=== PATIENT | male | born 1930 | race Two or more races ===

== ENCOUNTER 2016-11-09 19:43 | Inpatient (IN) | payer MEDICARE, MEDICAID ==
[~2016-11-09] VITALS: Ht 182.9 cm; Wt 93.0 kg
--- NOTE | 2016-11-09 19:50 | NUR ---
To bed 6 a 86 yo male bibra with c/o oxygen desaturation on room air at 84-87%, diminished lung sounds upon ausculation. Placed on simple mask at 5lpm, satting now at 98%. Patient is lethargic, responsive to pain, nonverbal. afebrile at this time. project/production manager imaging ongoing. gowned. kept hob elevated. awaiting for er md garland.
--- NOTE | 2016-11-09 19:55 | NUR ---
started a saline lock on the left hand g20, blood drawn and sent to lab.
[2016-11-09] MEDS ORDERED: LORA1TAB82 PO (20:10)
[2016-11-09] MEDS ORDERED: RISP0.253 PO (20:10)
[2016-11-09] MEDS ORDERED: MEMA10TA PO (20:10)
[2016-11-09] MEDS ORDERED: METO25TA6 PO (20:10)
[2016-11-09] MEDS ORDERED: CRAN425C PO (20:10)
[2016-11-09] MEDS ORDERED: MAGN400O6 PO (20:10)
[2016-11-09] MEDS ORDERED: ATOR10TA PO (20:10)
[2016-11-09] MEDS ORDERED: FURO-144 PO (20:10)
[2016-11-09] MEDS ORDERED: ACET650T10 PO (20:10)
[2016-11-09] MEDS ORDERED: POTA10CA43 PO (20:10)
--- NOTE | 2016-11-09 20:10 | NUR ---
Dr Espinosa at bedside for eval.
[2016-11-09 20:16] LABS: BASOPHILS # (AUTO) 0.5 /CMM (0.0-0.2); EOSINOPHILS # (AUTO) 0.1 /CMM (0.0-0.7); EOSINOPHILS % (AUTO) 1.2 % (0.0-6.0); HEMATOCRIT 40 % (39-51); HEMOGLOBIN 13.1 g/dL (13.5-17.5); LYMPHOCYTES # (AUTO) 0.7 /CMM (0.8-4.8); LYMPHOCYTES % (AUTO) 6.2 % (20.0-44.0); MEAN CORPUSCULAR HEMOGLOBIN 30 PG (26.0-33.0); MEAN CORPUSCULAR HGB CONC 33 g/dl (31.0-36.0); MEAN CORPUSCULAR VOLUME 91 fL (80-96); MONOCYTES # (AUTO) 0.6 /CMM (0.1-1.30); MONOCYTES % (AUTO) 5.5 % (2.0-12.0); NEUTROPHILS # (AUTO) 9.6 /CMM (1.8-8.9); NEUTROPHILS % (AUTO) 83.1 % (43.0-81.0); PLATELET COUNT (AUTO) 199 /CMM (150-450); RDW COEFFICIENT OF VARIATION 14.1 (11.5-15.0); WHITE BLOOD COUNT (AUTO) 11.5 K/uL (4.3-11.0)
[2016-11-09 20:27] LABS: CALCIUM, SERUM 8.1 mg/dL (8.5-10.1); CARBON DIOXIDE 29 mmol/L (21-32); CHLORIDE 105 mmol/L (98-107); CREATININE 1.3 mg/dL (0.6-1.3); GLUCOSE 138 mg/dL (74-106); POTASSIUM 4.3 mmol/L (3.5-5.1); SODIUM SERUM 140 mmol/L (136-145); UREA NITROGEN, BLOOD 25 mg/dL (7-18)
[2016-11-09 20:32] LABS: ALANINE AMINOTRANSFERASE 17 U/L (12-78); ALBUMIN 3.5 g/dL (3.4-5.0); ALKALINE PHOSPHATASE 111 U/L (46-116); ASPARTATE AMINOTRANSFERASE 25 U/L (15-37); BILIRUBIN,DIRECT 0.1 mg/dL (0.0-0.2); BILIRUBIN,TOTAL 0.5 mg/dL (0.2-1.0); TOTAL PROTEIN, SERUM 7.7 g/dL (6.4-8.2)
[2016-11-09 20:34] LABS: PROTHROMBIN TIME 10.4 SECS (9.5-12.7); TROPONIN I < 0.017 ng/mL (0.00-0.056)
[2016-11-09 20:51] LABS: ABG BASE EXCESS 0.7 mmol/L; ABG OXYGEN SATURATION 98.6 % (92.0-98.5); ABG PCO2 40.7 mmHg (35.0-45.0); ABG PH 7.412 (7.350-7.450); ABG PO2 151.6 mmHg (75.0-100.0); AaDO2 195.3 mmHg; COHb 0.5 % (0.5-1.5); MetHb 0.5 % (0.0-1.5); O2Hb 97.6 % (94.0-97.0); SITE, ABG Right Radial; VENT MODE, BG simple mask 9L
[2016-11-09] MEDS ORDERED: LIDOCAINE 2% JEL UROJET 10 ML MM ONE (21:03)
--- NOTE | 2016-11-09 21:10 | NUR ---
LIDOCAINE UROJECT ADMINISTERED VERBALLY ORDERED BY DR EDGE PRIOR TO BAXTER INSERTION, STRAIGHT CATH PERFORMED ASEPTICALLY, DRAINED ABOUT 150CC OF CLEAR YELLOW URINE. URINE COLLECTED AND SENT TO LAB.
--- NOTE | 2016-11-09 21:16 | NUR ---
DR NATHAN ON THE PHONE WITH Neftaly BARBOUR
[2016-11-09 21:27] LABS: APPEARANCE,URINE Clear (CLEAR); BILIRUBIN,URINE SMALL (NEGATIVE); BLOOD, URINE Negative Ery/uL (NEGATIVE); COLOR,URINE Yellow (YELLOW); KETONES,URINE Negative (NEGATIVE); LEUKOCYTE ESTERASE ,URINE Negative (NEGATIVE); NITRITE, URINE Negative (NEGATIVE); PROTEIN,URINE 100 mg/dl (NEGATIVE); UGLUCOSE Negative (NEGATIVE)
[2016-11-09] MEDS ORDERED: CEFEPIME 1 GM in IV D5W 50 ML IV ONE (21:30)
[2016-11-09] MEDS ORDERED: VANCOMYCIN 1 GM in IV D5W 250 ML IV ONE (21:30)
[2016-11-09] MEDS ORDERED: CEFEPIME 1 GM VIAL ONE (21:44)
[2016-11-09] MEDS ORDERED: IV SET PRIMARY PUMP SET 1 EA INFUS.SET MC ONE (21:44)
[2016-11-09] MEDS ORDERED: IV D5W 50 ML IV ONE (21:45)
--- NOTE | 2016-11-09 21:46 | NUR ---
Report given to Carina Gutierrez for admission.
[2016-11-09 21:57] VITALS: BP 152/75
[2016-11-09 22:00] VITALS: BP 152/75
--- NOTE | 2016-11-09 22:00 | NUR ---
Transported to floor via als protocol, no incident noted. Endorsed to VINICIUS Lim for rupinder.
--- NOTE | 2016-11-09 22:00 | NUR ---
LORRAINE RN INITIAL NOTE RECEIVED REPORT FROM FLORENCIO BOYD RN. PT ARRIVED VIA GURNEY FROM ER. PT IS A/A/O X1. PT IS CONFUSED, PULLING AT IV, RESISTING CARE BY PUSHING HIMSELF BACK WHEN ASSESSING HIS SKIN. SKIN INTACT, BLE SCRATCHES NOTED UPON ADMISSION, THEY ARE SCABBED AND DRY. INCONTINENT TO BOTH URINE AND STOOL. RESTRAINTS APPLIED FOR PTS SAFETY. LUNG SOUNDS CRACKLES. BOWEL SOUNDS PRESENT. IV LEFT HAND 20G INTACT. PULSES PRESENT. BED IN LOW LOCKED POSITION. CALL LIGHT WITHIN REACH. WILL CONTINUE TO MONITOR.
[2016-11-09 22:01] LABS: BACTERIA,URINE Few /HPF (None Seen); RBC,URINE 0-2 /HPF (0-2); SQUAMOUS EPITHELIAL CELL,UR Rare /HPF (None Seen); URINE AMORPHOUS URATE Few /HPF (None Seen)
--- NOTE | 2016-11-09 22:30 | NUR ---
LORRAINE RN DR PAGE CONTACTED FOR ADMISSION ORDERS. ORDERS INPUT. WILL CONTINUE TO MONITOR.
[2016-11-09] MEDS ORDERED: SECONDARY IV SET 1 EA INFUS.SET MC ONE (22:55)
[2016-11-09] MEDS ORDERED: IV NS 0.9% 250 ML IV ONE (22:57)
[2016-11-09] MEDS ORDERED: VANCOMYCIN 1 GM VIAL ONE (22:57)
[2016-11-09] MEDS: IV D5/ 0.9% NACL 1,000 ML IV PRN (23:00)
[2016-11-09] MEDS ORDERED: VANCOMYCIN 1 GM in IV D5W 250 ML IV SCH ×2 (23:00→23:30)
[2016-11-10] VITALS: BP 133/61
[2016-11-10] MEDS ORDERED: LEVOFLOXACIN 500 MG /D5W 100ML 100 ML IV ONE (00:15)
[2016-11-10] MEDS ORDERED: SECONDARY IV SET 1 EA INFUS.SET MC ONE (00:40)
[2016-11-10] MEDS ORDERED: LEVOFLOXACIN 500 MG /D5W 100ML 500 MG in PREMIX 1 EA IV SCH (01:00)
[2016-11-10 04:00] VITALS: BP 158/77
[2016-11-10 06:36] LABS: BASOPHILS % (AUTO) 0.2 % (0.0-2.0); EOSINOPHILS # (AUTO) 0.1 /CMM (0.0-0.7); EOSINOPHILS % (AUTO) 0.5 % (0.0-6.0); HEMATOCRIT 38 % (39-51); HEMOGLOBIN 12.3 g/dL (13.5-17.5); LYMPHOCYTES # (AUTO) 1.1 /CMM (0.8-4.8); LYMPHOCYTES % (AUTO) 9.7 % (20.0-44.0); MEAN CORPUSCULAR HEMOGLOBIN 30 PG (26.0-33.0); MEAN CORPUSCULAR HGB CONC 33 g/dl (31.0-36.0); MEAN CORPUSCULAR VOLUME 91 fL (80-96); MONOCYTES # (AUTO) 0.5 /CMM (0.1-1.30); MONOCYTES % (AUTO) 4.8 % (2.0-12.0); NEUTROPHILS # (AUTO) 9.2 /CMM (1.8-8.9); NEUTROPHILS % (AUTO) 84.8 % (43.0-81.0); PLATELET COUNT (AUTO) 199 /CMM (150-450); RDW COEFFICIENT OF VARIATION 14.6 (11.5-15.0); RED BLOOD CELL COUNT(AUTO) 4.14 MIL/uL (4.5-6.0); WHITE BLOOD COUNT (AUTO) 10.8 K/uL (4.3-11.0)
[2016-11-10 07:13] LABS: CREATININE 1.2 mg/dL (0.6-1.3); POTASSIUM 4.4 mmol/L (3.5-5.1)
[2016-11-10] MEDS ORDERED: VANCOMYCIN 1 GM in IV D5W 250 ML IV SCH (07:40)
[2016-11-10] MEDS ORDERED: FEE PK DOSING 1 MIN EA MC ONE (07:42)
[2016-11-10 08:00] VITALS: BP 154/78
[2016-11-10] MEDS ORDERED: MAGNESIUM HYDROXIDE 30 ML UDC PO PRN (09:30)
[2016-11-10] MEDS ORDERED: LORAZEPAM 1 MG TABLET PO PRN (09:30)
[2016-11-10] MEDS ORDERED: FUROSEMIDE 40 MG TABLET PO SCH (09:30)
[2016-11-10] MEDS ORDERED: Medication Not On Formulary EA (Cranberry Extract (Cranberry) 425 MG) PO SCH (09:30)
[2016-11-10] MEDS: VANCOMYCIN 1 GM in IV D5W 250 ML IV SCH ×2 (10:09→22:41)
[2016-11-10] MEDS: METOPROLOL TARTRATE 25 MG TABLET PO SCH ×2 (10:09→17:05)
[2016-11-10] MEDS: MEMANTINE HCL 5 MG TABLET PO SCH (10:10)
[2016-11-10] MEDS: POTASSIUM CHLORIDE 10 MEQ TABLET.SA PO SCH (10:10)
[2016-11-10] MEDS: risperiDONE 0.25 MG TABLET PO SCH (10:14)
[2016-11-10 10:47] LABS: THYROID STIMULATING HORMONE 1.022 uIU/mL (0.358-3.74)
[2016-11-10 11:03] LABS: TROPONIN I 0.029 ng/mL (0.00-0.056)
[2016-11-10] MEDS ORDERED: Z GUARD REMEDY 2 OZ OINT TP PRN (11:30)
[2016-11-10 11:36] LABS: MAGNESIUM 1.9 mg/dL (1.8-2.4)
[2016-11-10 12:00] VITALS: BP 148/85
--- NOTE | 2016-11-10 12:50 | NUR ---
LORRAINE RN NOTE 0720: Received patient awake, alert to name, non verbal at this time. Responds to pain. No respiratory distress noted. On 2LPM of O2 via NC tolerated. Kept HOB elevated. No S/S any discomfort at this time. With LH PIV, IVF infusing as ordered. With CHILDREN'S AUTHOR restraints for episode of pulling out IV. NSR 1st degree 70's. Noted with bilateral legs scratches. 0830: S/E by ST, with recommendation of video swallow, mentioned may continue diet because no coughing noted during eating. 0930: S/E PT but unable to follow commands, unable to cooperate, PT will follow up again tomorrow. 0945: S/E by Dr. Sullivan, with additional labs ordered, with order to may transfer to Tele, made CN aware. Awaiting for polysom tech. 1230: No any significant changes noted at this time. Will continue to monitor. VSS, continue ATB therapy as ordered. Applied DVT pumps for prophylaxis.
[2016-11-10 16:00] VITALS: BP 158/79
[2016-11-10] MEDS: IV D5/ 0.9% NACL 1,000 ML IV PRN (16:32)
--- NOTE | 2016-11-10 16:53 | NUR ---
PROCEDURE MANAGER NOTE Informed Dr. Baires re: ' rec for video swallow, said he will review the chart of the patient.
[2016-11-10] MEDS ORDERED: ATORVASTATIN 10 MG TABLET PO SCH (18:00)
--- NOTE | 2016-11-10 19:35 | NUR ---
TELERN ASLEEP, NEW IV SITE LEFT WRIST 20 GAUGE INSERTED BY OUTGOING RN. PRESENT IVF INFUSING WELL AT 75CC/HR. SR ON THE MONITOR, NO RESP DISTRESS, 02 MAINTAINED AT 2L SATURATING 97%. CLOSELY WATCHED.
[2016-11-10 20:00] VITALS: BP 157/87
--- NOTE | 2016-11-10 21:17 | NUR ---
TELERN REMAINS SR ON THE MONITOR, ASLEEP, EASILY AWAKENED. BILATERAL SOFT WRIST RESTRAINTS IN PLACE TO PREVENT PATIENT FROM PULLING LINES. CLOSELY WATCHED.
--- NOTE | 2016-11-10 22:48 | NUR ---
BRINEYARD SUPERVISOR DUE RICHARDO INFUSING WELL VIA LEFT WRIST. OPENS EYES OCCASIONALLY.
[2016-11-11] VITALS (9 sets, daily range): BP systolic 147–185; BP diastolic 82–108
[2016-11-11] MEDS: ACETAMINOPHEN 325 MG TABLET PO PRN ×2 (00:28→10:40)
[2016-11-11] MEDS: LEVOFLOXACIN 500 MG /D5W 100ML 500 MG in PREMIX 1 EA IV SCH (00:28)
--- NOTE | 2016-11-11 03:40 | NUR ---
TELERN BLADDER SCAN 116 CC. NO OUTPUDT AT THIS TIME
--- NOTE | 2016-11-11 05:59 | NUR ---
TELERN VOIDED ONCE THIS SHIFT MODERATE AMOUNT.
[2016-11-11 06:30] LABS: BASOPHILS % (AUTO) 0.3 % (0.0-2.0); EOSINOPHILS % (AUTO) 0.1 % (0.0-6.0); HEMATOCRIT 38 % (39-51); HEMOGLOBIN 12.7 g/dL (13.5-17.5); LYMPHOCYTES # (AUTO) 0.9 /CMM (0.8-4.8); LYMPHOCYTES % (AUTO) 8.6 % (20.0-44.0); MEAN CORPUSCULAR HEMOGLOBIN 30 PG (26.0-33.0); MEAN CORPUSCULAR HGB CONC 34 g/dl (31.0-36.0); MEAN CORPUSCULAR VOLUME 90 fL (80-96); MONOCYTES # (AUTO) 0.8 /CMM (0.1-1.30); MONOCYTES % (AUTO) 7.7 % (2.0-12.0); NEUTROPHILS # (AUTO) 8.7 /CMM (1.8-8.9); NEUTROPHILS % (AUTO) 83.3 % (43.0-81.0); PLATELET COUNT (AUTO) 185 /CMM (150-450); RDW COEFFICIENT OF VARIATION 14.4 (11.5-15.0); RED BLOOD CELL COUNT(AUTO) 4.24 MIL/uL (4.5-6.0); WHITE BLOOD COUNT (AUTO) 10.5 K/uL (4.3-11.0)
[2016-11-11 07:04] LABS: BILIRUBIN,TOTAL 0.6 mg/dL (0.2-1.0); CREATININE 1.1 mg/dL (0.6-1.3); MAGNESIUM 1.9 mg/dL (1.8-2.4); PHOSPHORUS 2.4 mg/dL (2.5-4.9); TOTAL PROTEIN, SERUM 7.5 g/dL (6.4-8.2)
[2016-11-11 07:15] LABS: TROPONIN I 0.045 ng/mL (0.00-0.056)
[2016-11-11] MEDS: MEMANTINE HCL 5 MG TABLET PO SCH (08:30)
[2016-11-11] MEDS: POTASSIUM CHLORIDE 10 MEQ TABLET.SA PO SCH (08:30)
[2016-11-11] MEDS: risperiDONE 0.25 MG TABLET PO SCH (08:31)
[2016-11-11] MEDS: NITROGLYCERIN 30 GM TUBE TP SCH ×2 (09:14→19:53)
[2016-11-11] MEDS: VANCOMYCIN 1 GM in IV D5W 250 ML IV SCH ×2 (10:40→23:22)
--- NOTE | 2016-11-11 10:57 | NUR ---
DR. MANZO AWARE OF VS 171/101, HR 122, O2 SAT 93% WITH 2L NC, TEMP 101.3 AND TROPONIN TREND. MD INPUT NEW ORDERS THIS MORNING. MEDICATION BEING ADMINISTERED, MD SAID CONTINUE TO MONITOR IS FOR NOW. TYLENOL AND ATIVAN ADMINISTERED FOR FEVER AND ANXIETY MANIFESTED BY VS CHANGES.
[2016-11-11] MEDS: METOPROLOL TARTRATE 25 MG TABLET PO SCH ×3 (12:10→23:23)
[2016-11-11] MEDS: LACTOBACILLUS RHAMNOSUS GG 1 EACH CAP.SPRINK PO SCH (17:20)
--- NOTE | 2016-11-11 18:11 | NUR ---
BP CHECKED AFTER METOPROLOL ADMIN- , NOTIFIED DR MANZO WITH 1 NEW ORDER FOR CLONIDINE TTS3 NOW AND LEAVE ON FOR 7 DAYS.
[2016-11-11] MEDS ORDERED: CLONIDINE HCL 0.3 MG/24H PTWK 1 EA PATCH TD SCH (18:30)
[2016-11-11] MEDS ORDERED: NEUTRA PHOS 1 POWD.PACKET PO ONE (18:30)
[2016-11-11] MEDS ORDERED: SECONDARY IV SET 1 EA INFUS.SET MC ONE (18:45)
[2016-11-11] MEDS ORDERED: Sodium Phosphate 15 MMOL in IV D5W 250 ML IV ONE (19:00)
--- NOTE | 2016-11-11 19:35 | NUR ---
RN INITIAL NOTE RECEIVED PT IN NO ACUTE DISTRESS IN BED. PT IS CONFUSED. PT OPENS EYES WITH LIGHT/HEAVY PAIN. PT IS ON O2 VIA NC @ 2LPM AND TOLERATING WELL WITH O2 SAT @ 98%. PT IS ON TELE WITH SR ON THE MONITOR. PT NOT C/O ANY SOB, DIFFICULTY BREATHING OR PAIN AT THIS TIME. L WRIST 20G THAT IS CLEAN DRY INTACT AND PATENT. BED IN LOW LOCK POSITION WITH RIALS UP X 2. CALL LIGHT WITHIN REACH AND ALL SAFETY MEASURES ENSURED AND CARRIED OUT. WILL CONTINUE TO MONITOR PT FOR ANY CHANGES IN CONDITION.
--- NOTE | 2016-11-11 20:00 | NUR ---
RN NOTE BP ELEVATED @ 185/102 PT HAS CLONAPINE PATCH PLACED @ 1830 AND NITRO PATCH PLACED PER ORDERS. WILL RECHECK BLOOD PRESSURE FOR EFFECT OF TREATMENT.
[2016-11-12] VITALS: BP 174/98
[2016-11-12] MEDS: LEVOFLOXACIN 500 MG /D5W 100ML 500 MG in PREMIX 1 EA IV SCH (01:19)
[2016-11-12 04:00] VITALS: BP 175/96
[2016-11-12] MEDS: METOPROLOL TARTRATE 25 MG TABLET PO SCH ×2 (05:27→12:30)
--- NOTE | 2016-11-12 06:53 | NUR ---
RN CLOSING NOTE PT REMAINS IN NO ACUTE DISTRESS IN BED. PT DID NOT HAVE ANY SIGNIFICANT CHANGE IN CONDITION. ALL NEEDS MET ALL ORDERS CARRIED OUT. ALL SAFETY MEASURES ENSURED AND CARRIED OUT. WILL ENDORSE TO AM RN FOR CONTINUITY OF CARE.
--- NOTE | 2016-11-12 07:00 | NUR ---
RN INITIAL NOTE RECEIVED PT IN NO ACUTE DISTRESS IN BED. PT IS CONFUSED. PT OPENS EYES WITH LIGHT/HEAVY PAIN. PT IS ON O2 VIA NC @ 2LPM AND TOLERATING WELL WITH O2 SAT @ 98%. PT IS ON TELE WITH SR ON THE MONITOR. PT NO C/O ANY SOB, DIFFICULTY BREATHING OR PAIN AT THIS TIME. L WRIST 20G THAT IS CLEAN DRY INTACT AND PATENT. BED IN LOW LOCK POSITION WITH RIALS UP X 2. CALL LIGHT WITHIN REACH AND ALL SAFETY MEASURES ENSURED AND CARRIED OUT. WILL CONTINUE TO MONITOR PT FOR ANY CHANGES IN CONDITION.
[2016-11-12 07:40] LABS: PHOSPHORUS 2.7 mg/dL (2.5-4.9)
[2016-11-12 08:00] VITALS: BP 159/82
[2016-11-12] MEDS ORDERED: NIFEdipine XL 60 MG TAB PO SCH (09:00)
[2016-11-12] MEDS: MEMANTINE HCL 5 MG TABLET PO SCH (09:31)
[2016-11-12] MEDS: LACTOBACILLUS RHAMNOSUS GG 1 EACH CAP.SPRINK PO SCH (09:31)
[2016-11-12] MEDS: POTASSIUM CHLORIDE 10 MEQ TABLET.SA PO SCH (09:31)
[2016-11-12] MEDS: risperiDONE 0.25 MG TABLET PO SCH (09:31)
[2016-11-12] MEDS: NITROGLYCERIN 30 GM TUBE TP SCH (09:35)
[2016-11-12 12:00] VITALS: BP 160/93
[2016-11-12 12:20] LABS: ABG BASE EXCESS 0.8 mmol/L; ABG OXYGEN SATURATION 94.9 % (92.0-98.5); ABG PCO2 33.6 mmHg (35.0-45.0); ABG PH 7.471 (7.350-7.450); AaDO2 150.9 mmHg; COHb 1.4 % (0.5-1.5); MetHb 0.6 % (0.0-1.5); SITE, ABG Right Brachial; VENT MODE, BG NASAL CANNULA
[2016-11-12] MEDS: VANCOMYCIN 1 GM in IV D5W 250 ML IV SCH (12:32)
--- NOTE | 2016-11-12 13:30 | NUR ---
AT 1000 PT SEEN BY .REPORTED TO PT IS NOT ABLE TO STAY AWAKE AND IS SLEEPING SINCE MORNING. ORDERED CT SCAN OF HEAD AND ABG. AT [address] SCAN DONE.RECEIVED REPORT FROM RADIOLOGIST PT HAS LEFT TEMPORAL BLEEDING OF 7CM WITH MIDLINE SHIFT.Rapid response team was called and patient was transferred to [facility]
--- NOTE | 2016-11-12 13:40 | NUR ---
REWARDS CONSULTANT NOTES RECEIVED PATIENT S/P CLAY PREPARATION SUPERVISOR FROM LORRAINE ,NOT IN ACUTE DISTRESS , RESPIRATIONS EVEN AND UNLABORED WITH SPO2 OF 100% BAGGING BY RT , ST 105 WITH 1ST DEGREE AV BLOCK ON BEDSIDE MONITOR , FC CATHETER PLACED NOTED WITH CLEAR YELLOW URINE TOLERATED WELL WITH NO BLEEDING , IV OF L WRIST # 20 PATENT AND INTACT , IV OF R FA # 20 INSERTED PER PROTOCOL PATENT AND INTACT , DISCUSSED LABS ABG AND HEAD CT RESULT WITH JENELLE BREEN PT SUSSEFFULY INTUBATED UNDER DR DELA CRUZ , MEDICATIONS GIVEN ORDERED WITH LUNG SOUNDS ON BILATERAL LUNGS , STAT CHEST XRAY ORDERED , WILL CONTINUE TO MONITOR
[2016-11-12 13:58] VITALS: BP 160/93
[2016-11-12] MEDS ORDERED: DEXAMETHASONE SOD PHOSPHATE 10 MG/ML VIAL IV ONE (14:00)
[2016-11-12] MEDS ORDERED: IV MANNITOL 20% 500 ML in PREMIX 1 EA IV PRN (14:00)
[2016-11-12] MEDS ORDERED: SOD FERRIC GLUC 125 MG in IV NS 0.9% 100 ML IV SCH (14:00)
--- NOTE | 2016-11-12 14:10 | NUR ---
MIDDLE SCHOOL FOOTBALL COACH NOTES REPORT GIVEN TO SHRUTHI FROM [facility] FOR CONTINUITY OF CARE , ALL QUESTIONS ANSWERED , DISCUSSED LABS , ABG AND LATEST V/S , @ 1413 REPORT GIVEN TO EMS FOR PT TRANSFER , DISCUSSED HX , LABS , MEDICATIONS , @ 1457 DR JOSE DE JESUS BREEN AT BEDSIDE , MED RECON WAS DONE , MANITOL IV AND FERRECIT IV WAS NOT GIVEN PT IS READY FOR TRANSFER MD AWARE ,
[2016-11-12 14:26] VITALS: BP 160/93
[2016-11-12 14:30] LABS: BASOPHILS % (AUTO) 0.1 % (0.0-2.0); HEMATOCRIT 41 % (39-51); HEMOGLOBIN 13.2 g/dL (13.5-17.5); LYMPHOCYTES # (AUTO) 0.9 /CMM (0.8-4.8); LYMPHOCYTES % (AUTO) 7.3 % (20.0-44.0); MEAN CORPUSCULAR HEMOGLOBIN 29 PG (26.0-33.0); MEAN CORPUSCULAR HGB CONC 33 g/dl (31.0-36.0); MEAN CORPUSCULAR VOLUME 91 fL (80-96); MONOCYTES # (AUTO) 1.1 /CMM (0.1-1.30); MONOCYTES % (AUTO) 8.9 % (2.0-12.0); NEUTROPHILS # (AUTO) 10.4 /CMM (1.8-8.9); NEUTROPHILS % (AUTO) 83.7 % (43.0-81.0); PLATELET COUNT (AUTO) 202 /CMM (150-450); RDW COEFFICIENT OF VARIATION 14.6 (11.5-15.0); RED BLOOD CELL COUNT(AUTO) 4.48 MIL/uL (4.5-6.0); WHITE BLOOD COUNT (AUTO) 12.4 K/uL (4.3-11.0)
--- NOTE | 2016-11-12 14:30 | NUR ---
CLAM SHUCKER NOTES DISCHARGE INSTRUCTIONS . LABS AND MEDICATION RECON PROVIDED TO EMS , NO WOUND NOTED ,
[2016-11-12] MEDS ORDERED: IV SET PRIMARY PUMP SET 1 EA INFUS.SET MC ONE (14:42)
[2016-11-12] MEDS: IV D5/ 0.9% NACL 1,000 ML IV PRN (14:47)
[2016-11-12] MEDS ORDERED: LEVETIRACETAM (500MG) 1,000 MG in IV NS 0.9% 100 ML IV SCH (15:00)
[2016-11-12] MEDS ORDERED: ETOMIDATE 2 MG/ML VIAL IV ONE (15:03)
[2016-11-12] MEDS ORDERED: ROCURONIUM BROMIDE 50 MG/5 ML IV ONE (15:03)
== END 2016-11-12 16:10 | disposition short-term general hospital (02) | DRG 208 ==
LOC: ER 19:44 → TELE-TD 22:12 → TELE1 11-10 15:49 → ICU 11-12 13:35
PROVIDERS: ADMIT Internal Medicine; ATTEND Internal Medicine
PROC: 5A1935Z Respiratory Ventilation, Less than 24 Consecutive Hours (ICD-10-PCS; principal; 2016-11-12)
PROC: 0BH17EZ Insertion of Endotracheal Airway into Trachea, Via Natural or Artificial Opening (ICD-10-PCS; 2016-11-12)
DX: J15.9 Unspecified bacterial pneumonia (principal); I61.9 Nontraumatic intracerebral hemorrhage, unspecified; G93.40 Encephalopathy, unspecified; F20.0 Paranoid schizophrenia; I42.9 Cardiomyopathy, unspecified; J96.11 Chronic respiratory failure with hypoxia; J98.11 Atelectasis; D50.9 Iron deficiency anemia, unspecified; E11.9 Type 2 diabetes mellitus without complications; E78.5 Hyperlipidemia, unspecified; F02.80 Dementia in other diseases classified elsewhere, unspecified severity, without behavioral disturbance, psychotic disturbance, mood disturbance, and anxiety; G30.9 Alzheimer's disease, unspecified; I10 Essential (primary) hypertension; Z79.899 Other long term (current) drug therapy; Z88.0 Allergy status to penicillin; G47.00 Insomnia, unspecified; F41.9 Anxiety disorder, unspecified
CPT/HCPCS: 36415; 36600; 70450-TC; 71010-TC; 80048-TC; 80053-TC; 80061-TC; 80076-TC; 80202-TC; 81000-TC; 82306; 82728-TC; 82962-TC; 83540-TC; 83605-TC; 83735-TC; 84100-TC; 84439-TC; 84443-TC; 84484-TC; 85025-TC; 85730-TC; 87040-TC; 87081-TC; 87086-TC; 92611-TC; 93307-TC; 94799-TC; A4216; A4606; A9563; J0692; J1100; J1953; J1956; J2150; J2916; J3370; J3490; J7030; J7042; J7050; J7060; Z7610

== ENCOUNTER 2017-07-24 23:59 | Emergency (ER) | payer MEDICARE, MEDICAID ==
[~2017-07-24] VITALS: Ht 170.2 cm; Wt 90.7 kg
[~2017-07-24 23:59] MED LIST: ACET650T10 PO; ATOR10TA PO; CRAN425C6 PO; FURO-144 PO; LORA-259 PO; MAGN400O6 PO; MEMA10TA GT; METO25TA6 PO; POTA10CA43 PO; RISP0.253 PO
--- NOTE | 2017-07-25 00:27 | NUR ---
TO BED 3 BIB PARAMEDICS C/O ABNORMAL LABS HGB-6.0, HCT-22.2. PT CHRONIC TRACHE, VENT DEPENDENT. RT AT BEDSIDE TO PLACE PT ON VENT. PLACE PT ON CARDIAC MONITORING, CONTINUOUS POX. PENDING ER MD TURCIOS.
--- NOTE | 2017-07-25 00:30 | NUR ---
RT PLACE PT ON VENT AC-16, TV-700, FIO2-40%. WILL CONTINUE TO MONITOR PT.
--- NOTE | 2017-07-25 00:36 | NUR ---
STARTED SL 18G TO L HAND.
[2017-07-25 00:40] VITALS: BP 162/79
--- NOTE | 2017-07-25 00:50 | NUR ---
RT NOTE: TRACH PT ON VENT WAS BROUGHT IN BY EMT ON AC 16, 700, 40%. TRACH SIZE PORTEX 8. TRACH WELL SECURED AND PATENT. DOG FOOD DOUGH MIXER DONE. SX SMALL AMOUNT OF THIN PALE YELLOW SECRETIONS. VENT ALARMS AUDIBLE AND WELL FUNCTIONING. VENT PLUGGED INTO RED OUTLET WITH AMBU BAG AT [facility]. WILL CONT TO MONITOR PATIENT. Addendum: 07/25/17 at 0051 by CLARE SORENSEN RT Amended: Links added.
--- NOTE | 2017-07-25 01:16 | NUR ---
PT ASLEEP, NO ACUTE DISTRESS NOTED, RESP EVEN AND UNLABORED. CALL LIGHT WITHIN REACH. WILL CONTINUE TO MONITOR PT CLOSELY.
[2017-07-25 01:44] LABS: BASOPHILS % (AUTO) 0.1 % (0.0-2.0); EOSINOPHILS # (AUTO) 1.4 /CMM (0.0-0.7); EOSINOPHILS % (AUTO) 11.5 % (0.0-6.0); HEMATOCRIT 25 % (39-51); HEMOGLOBIN 8.2 g/dL (13.5-17.5); LYMPHOCYTES % (AUTO) 15.9 % (20.0-44.0); MEAN CORPUSCULAR HEMOGLOBIN 30 PG (26.0-33.0); MEAN CORPUSCULAR HGB CONC 33 g/dl (31.0-36.0); MEAN CORPUSCULAR VOLUME 90 fL (80-96); MONOCYTES # (AUTO) 0.6 /CMM (0.1-1.30); NEUTROPHILS # (AUTO) 8.4 /CMM (1.8-8.9); NEUTROPHILS % (AUTO) 67.5 % (43.0-81.0); PLATELET COUNT (AUTO) 473 /CMM (150-450); RED BLOOD CELL COUNT(AUTO) 2.76 MIL/uL (4.5-6.0); WHITE BLOOD COUNT (AUTO) 12.5 K/uL (4.3-11.0)
[2017-07-25 01:56] LABS: CARBON DIOXIDE 29 mmol/L (21-32); CHLORIDE 97 mmol/L (98-107); CREATININE 0.9 mg/dL (0.6-1.3); GLUCOSE 89 mg/dL (74-106); SODIUM SERUM 133 mmol/L (136-145); UREA NITROGEN, BLOOD 26 mg/dL (7-18)
[2017-07-25 02:02] LABS: ALANINE AMINOTRANSFERASE 157 U/L (12-78); ALBUMIN 1.9 g/dL (3.4-5.0); ALKALINE PHOSPHATASE 106 U/L (46-116); ASPARTATE AMINOTRANSFERASE 134 U/L (15-37); BILIRUBIN,DIRECT 0.1 mg/dL (0.0-0.2); BILIRUBIN,TOTAL 0.2 mg/dL (0.2-1.0); TOTAL PROTEIN, SERUM 7.5 g/dL (6.4-8.2)
[2017-07-25] MEDS ORDERED: MINE3.5O OP (02:02)
[2017-07-25] MEDS ORDERED: BISA10SU61 RC (02:02)
[2017-07-25] MEDS ORDERED: MULT-213 GT (02:02)
[2017-07-25] MEDS ORDERED: IPRA3AMP IH ×2 (02:02)
[2017-07-25] MEDS ORDERED: AMIN30LI2 GT (02:02)
[2017-07-25] MEDS ORDERED: SACC250C GT (02:02)
[2017-07-25] MEDS ORDERED: DEXT15DR6 EACHEYE (02:02)
[2017-07-25] MEDS ORDERED: LEVE500T9 GT (02:02)
[2017-07-25] MEDS ORDERED: PANT40TA2 PO (02:02)
[2017-07-25] MEDS ORDERED: NA P133E RC (02:02)
[2017-07-25] MEDS ORDERED: ASCO500T9 GT (02:02)
[2017-07-25] MEDS ORDERED: AMIO200T2 GT (02:02)
[2017-07-25] MEDS ORDERED: CLON0.1T GT (02:02)
[2017-07-25] MEDS ORDERED: ACET-73 GT (02:02)
--- NOTE | 2017-07-25 02:04 | NUR ---
REPORT CALLED TO TELE 1 VINICIUS SUH. WILL TRANSPORT PT VIA ACLS PROTOCOL.
[2017-07-25 02:07] LABS: INR 1.44 (0.87-1.13)
[2017-07-25 03:30] VITALS: BP 155/90
--- NOTE | 2017-07-25 03:56 | NUR ---
PT ASLEEP, NO ACUTE DISTRESS NOTED, RESP EVEN AND UNLABORED. CALL LIGHT WITHIN REACH. WILL CONTINUE TO MONITOR PT CLOSELY.
--- NOTE | 2017-07-25 05:32 | NUR ---
RT AT BEDSIDE FOR SUCTIONING.
[2017-07-25 06:08] VITALS: BP 133/81
[2017-07-25 07:07] VITALS: BP 135/86
--- NOTE | 2017-07-25 07:10 | NUR ---
RT AT BEDSIDE
--- NOTE | 2017-07-25 08:02 | NUR ---
Patient is resting comfortably in bed with eyes closed. Easily aroused. VSS
--- NOTE | 2017-07-25 09:30 | NUR ---
IV removed. Catheter intact and site benign. Pressure and 4x4 applied to site. No bleeding noted.Patient discharged to home in stable condition. Written and verbal after care instructions given. Patient verbalizes understanding of instruction.
[2017-07-25 09:31] VITALS: BP 148/86
== END 2017-07-25 09:32 | disposition home or self-care (01) ==
LOC: ER 07-25
DX: J96.90 Respiratory failure, unspecified, unspecified whether with hypoxia or hypercapnia (principal); D64.9 Anemia, unspecified; E11.9 Type 2 diabetes mellitus without complications; F02.80 Dementia in other diseases classified elsewhere, unspecified severity, without behavioral disturbance, psychotic disturbance, mood disturbance, and anxiety; L89.609 Pressure ulcer of unspecified heel, unspecified stage; F20.0 Paranoid schizophrenia; G30.9 Alzheimer's disease, unspecified; I10 Essential (primary) hypertension; Z88.0 Allergy status to penicillin; Z91.011 Allergy to milk products
CPT/HCPCS: 36415; 80048; 80076; 85025; 85730; 86850; 86921; 99284; A4606; Z7610

== ENCOUNTER 2017-08-07 13:07 | Inpatient (IN) | payer MEDICARE, MEDICAID ==
[~2017-08-07] VITALS: Ht 180.3 cm; Wt 107.0 kg
[~2017-08-07 13:07] MED LIST changes: +ACET-73 GT; +AMIN30LI2 GT; +AMIO200T2 GT; +ASCO500T9 GT; +BISA10SU61 RC; +CLON0.1T GT; +CRAN425C6 GT; -CRAN425C6 PO; +DEXT15DR6 EACHEYE; -FURO-144 PO; +IPRA3AMP IH; +LEVE500T9 GT; -LORA-259 PO; +MAGN400O6 GT; -MAGN400O6 PO; +METO25TA6 GT; -METO25TA6 PO; +MINE3.5O OP; +MULT-213 GT; +NA P133E RC; +PANT40TA2 GT; -POTA10CA43 PO; -RISP0.253 PO; +SACC250C GT
--- NOTE | 2017-08-07 13:10 | NUR ---
HUNTER PA FROM SNF FOR WOUND EVALUATION TO BILATERAL HIPS. FOUL ODOR. RR IS EVEN AND UNLABORED WITH NAD NOTED. CAME IN WITH VENT. SKIN IS WARM AND DRY. DR MONTESINOS AT BS FOR EVAL.
[2017-08-07 13:24] VITALS: BP 124/95
--- NOTE | 2017-08-07 13:26 | NUR ---
RT PATIENT REC'D VIA TRANSPORT, TRACHED ON [facility] VENT WITH NOTED TRACH LEAK. PLACED ON HOSPITAL VENT WITH SAME SETTINGS TRANSPORT PER MD. VENT ALARMS CHECKED + AUDIBLE. CUFF PRESSURE CHECKED PAPER MACHINE BACK TENDER. SX'D WITH SMALL AMT OF QUINN SEMITHICK SECRETIONS. PATIENT NON VERBAL, NON RESPONSIVE, NO DISTRESS NOTED ON VENT. AMBU BAG AT [facility]. Addendum: 08/07/17 at 1329 by AIME GROVES RT Amended: Links added.
[2017-08-07 13:40] LABS: BASOPHILS % (AUTO) 0.3 % (0.0-2.0); EOSINOPHILS # (AUTO) 1.1 /CMM (0.0-0.7); EOSINOPHILS % (AUTO) 7.7 % (0.0-6.0); HEMATOCRIT 26 % (39-51); HEMOGLOBIN 8.6 g/dL (13.5-17.5); LYMPHOCYTES # (AUTO) 3.2 /CMM (0.8-4.8); LYMPHOCYTES % (AUTO) 21.8 % (20.0-44.0); MEAN CORPUSCULAR HEMOGLOBIN 30 PG (26.0-33.0); MEAN CORPUSCULAR HGB CONC 33 g/dl (31.0-36.0); MEAN CORPUSCULAR VOLUME 90 fL (80-96); MONOCYTES # (AUTO) 0.6 /CMM (0.1-1.30); MONOCYTES % (AUTO) 4.1 % (2.0-12.0); NEUTROPHILS # (AUTO) 9.7 /CMM (1.8-8.9); NEUTROPHILS % (AUTO) 66.1 % (43.0-81.0); PLATELET COUNT (AUTO) 458 /CMM (150-450); RDW COEFFICIENT OF VARIATION 19.9 (11.5-15.0); WHITE BLOOD COUNT (AUTO) 14.6 K/uL (4.3-11.0)
[2017-08-07 13:55] LABS: INR 1.06 (0.85-1.15)
[2017-08-07] MEDS ORDERED: VANCOMYCIN 1 GM in IV D5W 250 ML IV ONE (14:00)
[2017-08-07] MEDS ORDERED: LEVOFLOXACIN 750 MG /D5W 150ML 150 ML IV ONE ×2 (14:00→15:21)
[2017-08-07 14:05] LABS: ALANINE AMINOTRANSFERASE 41 U/L (12-78); ALBUMIN 1.9 g/dL (3.4-5.0); ALKALINE PHOSPHATASE 103 U/L (46-116); ASPARTATE AMINOTRANSFERASE 46 U/L (15-37); BILIRUBIN,DIRECT 0.1 mg/dL (0.0-0.2); BILIRUBIN,TOTAL 0.2 mg/dL (0.2-1.0); CARBON DIOXIDE 33 mmol/L (21-32); CHLORIDE 98 mmol/L (98-107); CREATININE 0.9 mg/dL (0.6-1.3); GLUCOSE 106 mg/dL (74-106); POTASSIUM 4.8 mmol/L (3.5-5.1); SODIUM SERUM 135 mmol/L (136-145); TOTAL PROTEIN, SERUM 7.7 g/dL (6.4-8.2); UREA NITROGEN, BLOOD 26 mg/dL (7-18)
[2017-08-07 14:07] LABS: TROPONIN I < 0.017 ng/mL (0.00-0.056)
[2017-08-07 14:39] VITALS: BP 130/92
--- NOTE | 2017-08-07 14:44 | NUR ---
[facility] CALLED FOR DR ALBARRAN.
[2017-08-07] MEDS ORDERED: FERR220S2 GT (14:58)
--- NOTE | 2017-08-07 15:50 | NUR ---
REPORT GIVEN TO VINICIUS CABRERA FOR [employer] TELE 319.
[2017-08-07 16:00] VITALS: BP 153/89
--- NOTE | 2017-08-07 16:00 | NUR ---
tele hogshead builder: admission admitted this 87 yr old male pt from e.r. with dx: infected celeste hip wounds. pt is vent dependent with settings: ac 16, tv 700, fio2 at 40% and with peep of 0. satting at 100%. pt is non-verbal, obtunded. placed pt on tele sr=70's. body check completed and placed in chart. noted tracheostomy making sounds and leaking. per e.r. report, pt need ent consult, will refer to pmd. orders carried out and noted. pt is isoflex. initial wound care done; all wounds defer to md. g-tube placement check and patent with no residual obtained. kept clean and dry. kept comfortable. call light within reach. will continue to monitor.
--- NOTE | 2017-08-07 16:09 | NUR ---
RT PATIENT TRANSFERRED TO [facility]. REPORT GIVEN TO RT Addendum: 08/07/17 at 1610 by AIME GROVES RT Amended: Links added.
--- NOTE | 2017-08-07 17:00 | NUR ---
tele web applications administrator: form maker plaster consult dr. holloway at bedside, wants to do bedside debridement and with verbal order to get consent for right heel debridement. order carried out and acknowledged. left message to venkat (public guardian) via answering machine. dr. holloway made aware and will see pt tomorrow as stated.
[2017-08-07] MEDS ORDERED: FEE PK DOSING 1 MIN EA MC ONE ×2 (17:48→18:11)
[2017-08-07] MEDS: AMIODARONE HCL 200 MG TABLET GT SCH (18:00)
[2017-08-07] MEDS ORDERED: ACETAMINOPHEN 650 MG/20.3 ML UDC GT PRN (18:00)
[2017-08-07] MEDS: ASCORBIC ACID 500 MG TABLET GT SCH (18:00)
[2017-08-07] MEDS ORDERED: MAGNESIUM HYDROXIDE 30 ML UDC GT PRN (18:00)
[2017-08-07] MEDS ORDERED: BISACODYL SUPP (10 MG) 10 MG/SUPP.RECT SUPP.RECT RC PRN (18:00)
[2017-08-07] MEDS ORDERED: ALBUTEROL FS 2.5 MG/0.5 ML VIAL.NEB NEB PRN (18:00)
[2017-08-07] MEDS ORDERED: IPRATROPIUM NEB FS 0.5 MG/2.5 ML AMPUL.NEB IH PRN (18:00)
[2017-08-07] MEDS ORDERED: Z GUARD REMEDY 2 OZ OINT TP PRN (18:00)
[2017-08-07] MEDS: POLYVINYL ALCOHOL 15 ML BOTTLE EACHEYE SCH (18:00)
[2017-08-07] MEDS ORDERED: ACETAMINOPHEN 325 MG TABLET PO PRN (18:00)
[2017-08-07] MEDS ORDERED: INSU100V3 SQ (18:12)
[2017-08-07] MEDS ORDERED: CLONIDINE HCL 0.1 MG TABLET GT PRN (18:30)
[2017-08-07] MEDS: FERROUS SULFATE UDC 300 MG/5 ML UDC GT SCH (18:38)
--- NOTE | 2017-08-07 18:38 | NUR ---
tele lemon grower: notes all due meds given via g-tube. still awaiting for formula. f/u made to pharmacy. will continue to monitor.
[2017-08-07] MEDS: METOPROLOL TARTRATE 25 MG TABLET GT SCH (18:39)
[2017-08-07] MEDS: MEMANTINE HCL 5 MG TABLET GT SCH (18:39)
--- NOTE | 2017-08-07 19:15 | NUR ---
tele outreach manager: notes report given to cain hassan) for continuity of care.
--- NOTE | 2017-08-07 19:15 | NUR ---
RN OPEN NOTES RECEIVED PATIENT RESTING IN BED. OBTUNDED. NO SIGNS OF DISTRESS OR DISCOMFORT. BREATHING EVEN AND UNLABORED. ON [facility] VENT WITH SETTING ORDERED. IV ACCESS IN R HAND, PATENT AND INTACT, NO SIGNS OF REDNESS OR INFILTRATION. HAS GTUBE INTACT. BED IN LOW LOCKED POSITION WITH SIDE RAILS X2. CALL LIGHT WITHIN REACH. WILL CONTINUE TO MONITOR.
[2017-08-07 19:42] VITALS: BP 124/95
[2017-08-07] MEDS: ALBUTEROL FS 2.5 MG/0.5 ML VIAL.NEB NEB SCH (19:42)
[2017-08-07] MEDS: IPRATROPIUM NEB FS 0.5 MG/2.5 ML AMPUL.NEB IH SCH (19:42)
[2017-08-07 20:00] VITALS: BP 148/80
[2017-08-07] MEDS: INSULIN REGULAR, HUMAN 100 UNIT/ML 3 ML VIAL SQ SCH (21:00)
--- NOTE | 2017-08-07 21:21 | NUR ---
RN NOTES LEFT MESSAGE FOR JOELLEN LUCIO PATIENT POA AT [phone]. REGARDING CONSENT FOR PROCEDURE FOR RIGHT HEEL DEBRIDEMENT.
[2017-08-07] MEDS: BLOOD SUGAR DIAGNOSTIC 1 EACH STRIP IN SCH (21:51)
[2017-08-07] MEDS: MEROPENEM 500 MG in IV NS 0.9% 50 ML IV SCH (21:51)
[2017-08-07] MEDS: LEVETIRACETAM SOL (5 ML) 100 MG/ML UDC GT SCH (21:52)
[2017-08-07] MEDS: FIBERSOURCE HN 1,000 ML BOTTLE GT PRN (21:52)
[2017-08-07] MEDS: ATORVASTATIN 10 MG TABLET GT SCH (21:52)
[2017-08-07] MEDS: LANOLIN/MIN OIL/PETROLAT,WHT 3.5 GM TUBE EACHEYE SCH (21:55)
[2017-08-07] MEDS: Z GUARD REMEDY 2 OZ OINT TP SCH (21:56)
[2017-08-07] MEDS ORDERED: NA PHOS,M-B/NA PHOS,DI-BA 1 EA ENEMA RC SCH (22:00)
[2017-08-08] VITALS: BP 128/69
[2017-08-08] MEDS ORDERED: NA PHOS,M-B/NA PHOS,DI-BA 1 EA ENEMA RC PRN
[2017-08-08] MEDS: VANCOMYCIN 1 GM in IV D5W 250 ML IV SCH ×2 (02:19→16:06)
[2017-08-08] MEDS: ALBUTEROL FS 2.5 MG/0.5 ML VIAL.NEB NEB SCH ×4 (02:28→20:25)
[2017-08-08] MEDS: IPRATROPIUM NEB FS 0.5 MG/2.5 ML AMPUL.NEB IH SCH ×4 (02:28→20:24)
[2017-08-08 04:00] VITALS: BP 127/68
[2017-08-08] MEDS: MEROPENEM 500 MG in IV NS 0.9% 50 ML IV SCH ×3 (05:09→21:37)
--- NOTE | 2017-08-08 07:05 | NUR ---
RN CLOSING NOTES PATIENT AWAKE IN BED. NON-VERBAL. NO SIGNS OF DISTRESS OR DISCOMFORT. BREATHING EVEN AND UNLABORED. [facility] WITH SETTING ORDERED. IV ACCESS IN R HAND, PATENT AND INTACT, NO SIGNS OF REDNESS OR INFILTRATION. HAS GTUBE INTACT WITH FEEDING RUNNING, PATIENT TOLERATING WELL WITH NO RESIDUAL NOTED THROUGHOUT SHIFT. PATIENT KEPT CLEAN DRY AND COMFORTABLE. ALL NEEDS MET. NO SIGNIFICANT CHANGES THROUGH THE NIGHT. BED IN LOW LOCKED POSITION WITH SIDE RAILS X2. CALL LIGHT WITHIN REACH. WILL ENDORSE TO AM SHIFT FOR JUNI.
--- NOTE | 2017-08-08 07:50 | NUR ---
RN OPENING NOTES RECEIVED PT. PT STABLE, SLEEPING IN BED. PT IS OBTUNDED, NON-VERBAL. PT DOES NOT APPEAR TO BE IN PAIN. PT IS TRACHED (PORTEX 8) AND VENT DEPENDENT, SETTINGS IN PLACE. TELE MONITOR READING SR WITH 1ST DEGREE AVB. GT PATENT AND IN PLACE, WITH 20 ML RESIDUAL. FEEDING OF FIBERSOURCE RUNNING AT 55 ML/HR. IV ACCESS LOCATED ON RIGHT HAND 20G, SL. PER MD NOTE, PT POA TO BE CONTACTED IN ORDER TO RECEIVE CONSENT FOR RIGHT HEEL DEBRIDEMENT. SAFETY MEASURES IN PLACE, CALL LIGHT WITHIN REACH. WILL CONTINUE TO MONITOR.
[2017-08-08 08:00] VITALS: BP 117/65
[2017-08-08] MEDS: POLYVINYL ALCOHOL 15 ML BOTTLE EACHEYE SCH ×2 (08:46→17:43)
[2017-08-08] MEDS: ASCORBIC ACID 500 MG TABLET GT SCH (08:46)
[2017-08-08] MEDS: MEMANTINE HCL 5 MG TABLET GT SCH ×2 (08:46→17:42)
[2017-08-08] MEDS: FERROUS SULFATE UDC 300 MG/5 ML UDC GT SCH ×3 (08:46→17:42)
[2017-08-08] MEDS: LEVETIRACETAM SOL (5 ML) 100 MG/ML UDC GT SCH ×2 (08:46→21:38)
[2017-08-08] MEDS: PANTOPRAZOLE 40 MG/PACK PACK NG SCH (08:47)
[2017-08-08] MEDS: AMIODARONE HCL 200 MG TABLET GT SCH (08:47)
[2017-08-08] MEDS: MULTIVIT, IRON, MIN NO. 8, FA 1 TAB GT SCH (08:47)
[2017-08-08] MEDS: PROSOURCE / PROSTAT (PYXIS) 30 ML UDC GT SCH (08:49)
[2017-08-08] MEDS: BLOOD SUGAR DIAGNOSTIC 1 EACH STRIP IN SCH ×2 (08:49→21:38)
[2017-08-08] MEDS: METOPROLOL TARTRATE 25 MG TABLET GT SCH ×2 (08:50→17:42)
[2017-08-08] MEDS: INSULIN REGULAR, HUMAN 100 UNIT/ML 3 ML VIAL SQ SCH ×2 (09:00→21:00)
[2017-08-08] MEDS: Z GUARD REMEDY 2 OZ OINT TP SCH ×2 (09:47→21:40)
[2017-08-08 12:00] VITALS: BP 121/63
--- NOTE | 2017-08-08 14:07 | NUR ---
RN NOTES SCHEDULED VANCO DELAYED UNTIL VANCO TROUGH IS DRAWN. LAB NOTIFIED, TO BE DRAWN WITHIN THE HOUR. WILL F/U.
[2017-08-08 15:11] LABS: BASOPHILS % (AUTO) 0.3 % (0.0-2.0); EOSINOPHILS # (AUTO) 0.6 /CMM (0.0-0.7); EOSINOPHILS % (AUTO) 4.4 % (0.0-6.0); HEMATOCRIT 24 % (39-51); HEMOGLOBIN 7.9 g/dL (13.5-17.5); LYMPHOCYTES # (AUTO) 2.8 /CMM (0.8-4.8); LYMPHOCYTES % (AUTO) 22.5 % (20.0-44.0); MEAN CORPUSCULAR HEMOGLOBIN 30 PG (26.0-33.0); MEAN CORPUSCULAR HGB CONC 33 g/dl (31.0-36.0); MEAN CORPUSCULAR VOLUME 92 fL (80-96); MONOCYTES # (AUTO) 0.8 /CMM (0.1-1.30); MONOCYTES % (AUTO) 6.2 % (2.0-12.0); NEUTROPHILS # (AUTO) 8.4 /CMM (1.8-8.9); NEUTROPHILS % (AUTO) 66.6 % (43.0-81.0); PLATELET COUNT (AUTO) 377 /CMM (150-450); RDW COEFFICIENT OF VARIATION 20.9 (11.5-15.0); RED BLOOD CELL COUNT(AUTO) 2.61 MIL/uL (4.5-6.0); WHITE BLOOD COUNT (AUTO) 12.6 K/uL (4.3-11.0)
[2017-08-08 15:49] LABS: ABG BASE EXCESS 6.9 mmol/L; ABG OXYGEN SATURATION 95.1 % (92.0-98.5); ABG PCO2 39.4 mmHg (35.0-45.0); ABG PH 7.507 (7.350-7.450); ABG PO2 73.1 mmHg (75.0-100.0); AaDO2 166.8 mmHg; COHb 0.9 % (0.5-1.5); MetHb 0.6 % (0.0-1.5); O2Hb 93.7 % (94.0-97.0); PEEP,BG 0 cm H2O; SITE, ABG Right Brachial; VT, ABG 700 mL
[2017-08-08 15:50] LABS: CARBON DIOXIDE 29 mmol/L (21-32); CHLORIDE 96 mmol/L (98-107); CREATININE 0.9 mg/dL (0.6-1.3); GLUCOSE 102 mg/dL (74-106); PHOSPHORUS 2.7 mg/dL (2.5-4.9); POTASSIUM 3.9 mmol/L (3.5-5.1); SODIUM SERUM 133 mmol/L (136-145); UREA NITROGEN, BLOOD 24 mg/dL (7-18)
[2017-08-08 16:00] VITALS: BP 130/79
--- NOTE | 2017-08-08 18:53 | NUR ---
RN CLOSING NOTES PT IN BED RESTING. NO S/S OF RESP DISTRESS. VENT SETTINGS IN PLACE. TV ADJUSTED TO 550 PER RT ORDER. PT REQUIRES CONSENT FOR RIGHT FOOT DEBRIDEMENT AND US GUIDED THORACENTESIS. PUBLIC GUARDIAN JOELLEN VALDES CONTACTED FOR CONSENTS, MESSAGES LEFT. DR. WESTFALL CONTACTED FOR REVISION OF TRACHEOSTOMY, AWAITING MESSAGE. ALL PT NEEDS ANTICIPATED AND MET, SAFETY MEASURES IN PLACE. CALL LIGHT WITHIN REACH. WILL ENDORSE TO VISITING PROFESSOR FOR JUNI.
--- NOTE | 2017-08-08 19:25 | NUR ---
RN OPEN NOTES RECEIVED PATIENT RESTING IN BED. NON-VERVBAL. NO SIGNS OF DISTRESS OR DISCOMFORT. BREATHING EVEN AND UNLABORED. [facility] WITH SETTING ORDERED. IV ACCESS IN R HAND, PATENT AND INTACT, NO SIGNS OF REDNESS OR INFILTRATION. HAS GTUBE INTACT WITH FEEDING RUNNING, PATIENT TOLERATING WELL. PATIENT STILL NEEDS CONSENT FOR US GUIDED THORACENTESIS AND R HEEL DEBRIDEMENT, WILL F/U WITH APRIL VALDES. BED IN LOW LOCKED POSITION WITH SIDE RAILS X2. CALL LIGHT WITHIN REACH. WILL CONTINUE TO MONITOR.
--- NOTE | 2017-08-08 19:58 | NUR ---
Patient is trach/vent dependent,he resides at [facility] sub-acute unit [phone].Patient is bedfast, totally dependent with adl's. Current plan is to discharge patient back to sub-acute facility once discharge. Addendum: 08/08/17 at 1958 by RICHAR TAVAREZ RN Amended: Links added.
[2017-08-08 20:00] VITALS: BP 128/67
[2017-08-08] MEDS: FIBERSOURCE HN 1,000 ML BOTTLE GT PRN (21:37)
[2017-08-08] MEDS: ATORVASTATIN 10 MG TABLET GT SCH (21:38)
[2017-08-08] MEDS: LANOLIN/MIN OIL/PETROLAT,WHT 3.5 GM TUBE EACHEYE SCH (21:38)
[2017-08-09] VITALS: BP 121/75
--- NOTE | 2017-08-09 00:35 | NUR ---
RN NOTES NOTIFIED ON-CALL MD THAT PATIENT HEART RHYTHM IS NOW IN AFIB. NO NEW ORDERS GIVEN. WILL CONTINUE TO MONITOR.
[2017-08-09] MEDS: IPRATROPIUM NEB FS 0.5 MG/2.5 ML AMPUL.NEB IH SCH ×4 (01:45→22:47)
[2017-08-09] MEDS: ALBUTEROL FS 2.5 MG/0.5 ML VIAL.NEB NEB SCH ×4 (01:45→22:47)
[2017-08-09] MEDS: VANCOMYCIN 1 GM in IV D5W 250 ML IV SCH ×2 (02:47→13:55)
[2017-08-09 04:00] VITALS: BP 120/69
[2017-08-09] MEDS: MEROPENEM 500 MG in IV NS 0.9% 50 ML IV SCH ×3 (05:30→21:56)
--- NOTE | 2017-08-09 06:23 | NUR ---
RN CLOSING NOTES PATIENT RESTING IN BED, AROUSABLE TO TOUCH. NON-VERVBAL. NO SIGNS OF DISTRESS OR DISCOMFORT. BREATHING EVEN AND UNLABORED. [facility] ORDERED. IV ACCESS IN R HAND, PATENT AND INTACT, NO SIGNS OF REDNESS OR INFILTRATION. HAS GTUBE INTACT WITH FEEDING RUNNING, PATIENT TOLERATING WELL, NO RESIDUAL NOTED. PATIENT STILL NEEDS CONSENT FOR US GUIDED THORACENTESIS AND R HEEL DEBRIDEMENT, L/M FOR APRIL VALDES AT [phone]. ALL NEEDS MET. NO SIGNIFICANT CHANGES THROUGH THE NIGHT. PATIENT KEPT CLEAN DRY AND COMFORTABLE. REPOSITIONED Q2H. BED IN LOW LOCKED POSITION WITH SIDE RAILS X2. CALL LIGHT WITHIN REACH. WILL ENDORSE TO AM SHIFT FOR JUNI.
--- NOTE | 2017-08-09 07:47 | NUR ---
RADIOLOGY EQUIPMENT SERVICER: INITIAL NOTE PT NON-VERBAL. ON MECHANICAL VENTILATOR. SETTINGS IN CLUDE PORTEX 8, AC 16, TC 550, FIO2 40%, PEEP 0. ON TELE MONITORING SR AT 80 BPM. NO DISTRESS NOTED. NO SOB NOTED. NO PAIN NOTED USING FLACC SCALE. BEDBOUND. INCONTINENT. ON FIBERSOURCE RUNNING AT 55ML/HR. TO TURN OFF AT 0800 AND ON AT 1200 EVERYDAY. R HAND #20 SL. SITE CLEAR AND PATENT. RESTING COMFORTABLY IN BED. HEAD OF BED ELEVATED.
[2017-08-09] MEDS: MEMANTINE HCL 5 MG TABLET GT SCH ×2 (08:11→16:39)
[2017-08-09] MEDS: MULTIVIT, IRON, MIN NO. 8, FA 1 TAB GT SCH (08:11)
[2017-08-09] MEDS: AMIODARONE HCL 200 MG TABLET GT SCH (08:11)
[2017-08-09] MEDS: PANTOPRAZOLE 40 MG/PACK PACK NG SCH (08:11)
[2017-08-09] MEDS: PROSOURCE / PROSTAT (PYXIS) 30 ML UDC GT SCH (08:11)
[2017-08-09] MEDS: METOPROLOL TARTRATE 25 MG TABLET GT SCH ×2 (08:11→16:39)
[2017-08-09] MEDS: FERROUS SULFATE UDC 300 MG/5 ML UDC GT SCH ×3 (08:11→17:08)
[2017-08-09] MEDS: ASCORBIC ACID 500 MG TABLET GT SCH (08:11)
[2017-08-09] MEDS: LEVETIRACETAM SOL (5 ML) 100 MG/ML UDC GT SCH ×2 (08:11→21:58)
[2017-08-09] MEDS: Z GUARD REMEDY 2 OZ OINT TP SCH ×2 (08:12→22:00)
[2017-08-09] MEDS: BLOOD SUGAR DIAGNOSTIC 1 EACH STRIP IN SCH ×2 (08:14→21:58)
[2017-08-09] MEDS: INSULIN REGULAR, HUMAN 100 UNIT/ML 3 ML VIAL SQ SCH ×2 (08:14→21:00)
[2017-08-09] MEDS: POLYVINYL ALCOHOL 15 ML BOTTLE EACHEYE SCH ×2 (08:18→16:39)
[2017-08-09 08:27] LABS: BASOPHILS # (AUTO) 0.1 /CMM (0.0-0.2); BASOPHILS % (AUTO) 0.8 % (0.0-2.0); EOSINOPHILS # (AUTO) 0.2 /CMM (0.0-0.7); EOSINOPHILS % (AUTO) 1.4 % (0.0-6.0); HEMATOCRIT 24 % (39-51); HEMOGLOBIN 7.7 g/dL (13.5-17.5); LYMPHOCYTES # (AUTO) 1.6 /CMM (0.8-4.8); LYMPHOCYTES % (AUTO) 13.4 % (20.0-44.0); MEAN CORPUSCULAR HEMOGLOBIN 30 PG (26.0-33.0); MEAN CORPUSCULAR HGB CONC 33 g/dl (31.0-36.0); MEAN CORPUSCULAR VOLUME 91 fL (80-96); MONOCYTES # (AUTO) 0.3 /CMM (0.1-1.30); MONOCYTES % (AUTO) 2.8 % (2.0-12.0); NEUTROPHILS # (AUTO) 9.8 /CMM (1.8-8.9); NEUTROPHILS % (AUTO) 81.6 % (43.0-81.0); PLATELET COUNT (AUTO) 350 /CMM (150-450); RDW COEFFICIENT OF VARIATION 20.8 (11.5-15.0)
[2017-08-09 08:47] LABS: CALCIUM, SERUM 7.5 mg/dL (8.5-10.1); CARBON DIOXIDE 31 mmol/L (21-32); CHLORIDE 97 mmol/L (98-107); CREATININE 0.9 mg/dL (0.6-1.3); GLUCOSE 141 mg/dL (74-106); MAGNESIUM 1.9 mg/dL (1.8-2.4); PHOSPHORUS 2.5 mg/dL (2.5-4.9); POTASSIUM 3.9 mmol/L (3.5-5.1); SODIUM SERUM 132 mmol/L (136-145); UREA NITROGEN, BLOOD 23 mg/dL (7-18)
--- NOTE | 2017-08-09 08:50 | NUR ---
PER TOSHIA ODELL ELDERLY COMPANION TO ORDER DAKINS SOLUTION FOR PT. ORDER CARRIED OUT.
--- NOTE | 2017-08-09 10:24 | NUR ---
WOUND CARE CONSULT WOUND CARE RECEIVED CONSULT FOR BILATERAL HIP WOUNDS. WOUND CARE WILL DEFER CONSULT AND ALL TREATMENT PLANS TO SURGICAL TEAM WHO ARE CURRENTLY FOLLOWING. PATIENT WITH CURRENT HALLIE AT 11, ALL PRESSURE ULCER PREVENTION MEASURES NOTED TO BE IN PLACE.
[2017-08-09] MEDS: DAKINS QUARTER STRENGTH (0.125%) 480 ML BOTTLE TOP SCH ×2 (10:34→22:02)
[2017-08-09 12:00] VITALS: BP 117/68
--- NOTE | 2017-08-09 13:28 | NUR ---
UNABLE TO OBTAIN TELEPHONE CONSENT OR SIGNED CONSENT FOR US GUIDED THORACENTESIS OR BL HIP DEBRIDEMENT. PT NON VERBAL. APRIL VALDES NOT RETURNING CALLS. PER CNC MACHINE PROGRAMMER WELL. WILL CONTINUE TO TRY. AWARE.
[2017-08-09 17:00] VITALS: BP 92/57
[2017-08-09] MEDS: FIBERSOURCE HN 1,000 ML BOTTLE GT PRN ×2 (17:09→22:40)
--- NOTE | 2017-08-09 18:15 | NUR ---
CALLED MD SAA MCGOVERN FOR ORDER OF MIDLINE INSERTION DUE TO BEING UNABLE TO START A NEW IV ON PT DUE TO SWELLING. AWAITING CALL BACK. WILL ENDORSE TO NEXT SHIFT. IV ON R HAND LEAKING. REMOVED. SITE CLEAR. NO REDNESS OR BLEEDING NOTED.
--- NOTE | 2017-08-09 18:39 | NUR ---
HYDRO STATION OPERATOR: CLOSING NOTE ADMINISTERED ALL MEDICATIONS VIA G-TUBE. NO ADVERSE REACTIONS NOTED. ON MECHANICAL VENTILATION. SETTING INCLUDE AC 16, PORTEX 8, FIO2 40%, PEEP 0, TV 550. NON-VERBAL. CONTRACTED. TURNED AND REPOSITIONED Q 2HOURS. ON TELE MONITORING SR AT 94 BPM. NO DISTRESS NOTED. NO PAIN NOTED USING FLACC SCALE. NO SOB NOTED. SATING AT 100%. WOUND CARE DONE ORDERED. G-TUBE SITE CLEAR AND PATENT. RUNNING FIBERSOURCE AT 55ML/HR FOR 20 HOURS. TURNED OFF AT 0800 AND ON AT 1200 EVERY DAY. IV ON R HAND #22 SL LEAKING AND REMOVED. COULD NOT START ANOTHER IV DUE TO SWELLING ON BOTH ARMS. CALLED MD MCGOVERN FOR ORDER OF MIDLINE. AWAITING CALL BACK. WILL ENDORSE TO NEXT SHIFT. INSULIN GIVEN PER SLIDING SCALE. RESTING COMFORTABLY IN BED. CALL LIGHT WITHIN REACH.
--- NOTE | 2017-08-09 19:10 | NUR ---
RESISTANCE MACHINE WELDER SETTER NOTES RECEIVED PT IN BED, EYES CLOSED, AROUSABLE TO PAINFUL STIMULI. PT NON-VERBAL. ON TRACH WITH MECHANICAL VENTILATOR, MYKEL WELL. ON TELE MONITORING SR AT 87 BPM. NO DISTRESS NOTED. NO SOB NOTED. NO S/S OF PAIN OR DISCOMFORT. ON GTF OF FIBERSOURCE @ 55ML/HR. TO TURN OFF AT 0800 AND ON AT 1200 EVERYDAY. PT RESTING COMFORTABLY AT THIS TIME. ASPIRATION AND SAFETY PRECAUTION OBSERVED. ALL NEEDS ATTENDED AND MET. WILL CONTINUE TO MONITOR.
[2017-08-09 20:00] VITALS: BP 125/65
--- NOTE | 2017-08-09 20:14 | NUR ---
ATTEMPTED TO INSERT IV ON RFA AND LFA X 3, UNSUCCESSFUL. , CHARGE NURSE INFORMED. PLACED A CLL TO DR. MCGOVERN, AWAITING FOR A CALL BACK.
--- NOTE | 2017-08-09 20:33 | NUR ---
RECEIVED A CALL BACK FROM DR. MCGOVERN , AND RECEIVED AN ORDER FOR MIDLINE INSERTION, NOTED AND CARRIED OUT.
--- NOTE | 2017-08-09 20:40 | NUR ---
TESSIE, CHARGE NURSE AND KEVIN BEST SUP INFORMED REGARDING MIDLINE ORDER
--- NOTE | 2017-08-09 21:53 | NUR ---
KIKE PALMER NURSE AT BEDSIDE. GET MIDLINE G # 18 INSERTED.
[2017-08-09] MEDS: ATORVASTATIN 10 MG TABLET GT SCH (21:58)
[2017-08-09] MEDS: LANOLIN/MIN OIL/PETROLAT,WHT 3.5 GM TUBE EACHEYE SCH (22:00)
--- NOTE | 2017-08-09 22:05 | NUR ---
BS : 104 AT THIS TIME, PT IS ON FIBERSOURCE HN @ 55 CC / HR, MYKEL WELL. NO INSULIN SS COVERAGE AT THIS TIME. NO S/S OF HYPOGLYCEMIA NOTED. WILL CONT TO MONITOR.
[2017-08-10] VITALS: BP 128/70
[2017-08-10] MEDS: VANCOMYCIN 1 GM in IV D5W 250 ML IV SCH ×2 (02:33→14:26)
[2017-08-10] MEDS: IPRATROPIUM NEB FS 0.5 MG/2.5 ML AMPUL.NEB IH SCH ×4 (02:48→21:12)
[2017-08-10] MEDS: ALBUTEROL FS 2.5 MG/0.5 ML VIAL.NEB NEB SCH ×4 (02:48→21:12)
[2017-08-10 04:00] VITALS: BP 118/59
[2017-08-10] MEDS: MEROPENEM 500 MG in IV NS 0.9% 50 ML IV SCH ×3 (05:05→21:52)
--- NOTE | 2017-08-10 06:52 | NUR ---
BUTTER GRADER NOTES PT IN BED, EYES CLOSED, AROUSABLE TO PAINFUL STIMULI. PT NON-VERBAL. ON TRACH WITH MECHANICAL VENTILATOR, MYKEL WELL. ON TELE MONITORING SR AT 81 BPM. NO DISTRESS NOTED. NO SOB NOTED. NO S/S OF PAIN OR DISCOMFORT. ON GTF OF FIBERSOURCE @ 55ML/HR, MYKEL WELL, NO RESIDUAL NOTED. PT RESTING COMFORTABLY AT THIS TIME. ASPIRATION AND SAFETY PRECAUTION OBSERVED. ALL DUE MEDS GIVEN. BILATERAL HIP AND HEEL TREATMENT RENDERED, MYKEL WELL. ALL NEEDS ATTENDED AND MET. CALL LIGHT WITHIN REACH. WILL ENDORSE TO NEXT SHIFT FOR JUNI. .
--- NOTE | 2017-08-10 07:25 | NUR ---
FIREARMS SALES ASSOCIATE NOTES RECEIVED PATIENT IN BED, EYES CLOSED, AROUSABLE TO PAINFUL STIMULI. PATIENT NON-VERBAL. ON TRACH WITH MECHANICAL VENTILATOR, TOLERATED WELL. ON TELE MONITORING SR AT 88 BPM WITH 1ST DEGREE AV BLOCK. NO DISTRESS NOTED. NO SOB NOTED. NO S/S OF PAIN OR DISCOMFORT. ON GTF OF FIBERSOURCE @ 55ML/HR. TO TURN ON AT 1200 TODAY. PATIENT RESTING COMFORTABLY AT THIS TIME. ASPIRATION AND SAFETY PRECAUTION OBSERVED. WILL CONTINUE TO MONITOR ACCORDINGLY.
[2017-08-10 08:00] VITALS: BP 119/65
[2017-08-10 08:05] LABS: HEMATOCRIT 24 % (39-51); HEMOGLOBIN 7.8 g/dL (13.5-17.5); LYMPHOCYTES % (AUTO) 17.6 % (20.0-44.0); MEAN CORPUSCULAR HEMOGLOBIN 30 PG (26.0-33.0); MEAN CORPUSCULAR HGB CONC 33 g/dl (31.0-36.0); MEAN CORPUSCULAR VOLUME 92 fL (80-96); NEUTROPHILS % (AUTO) 76.5 % (43.0-81.0); PLATELET COUNT (AUTO) 266 /CMM (150-450); RDW COEFFICIENT OF VARIATION 20.7 (11.5-15.0); RED BLOOD CELL COUNT(AUTO) 2.61 MIL/uL (4.5-6.0); WHITE BLOOD COUNT (AUTO) 13.4 K/uL (4.3-11.0)
[2017-08-10 08:06] LABS: BASOPHILS % (AUTO) 0.3 % (0.0-2.0); EOSINOPHILS # (AUTO) 0.3 /CMM (0.0-0.7); EOSINOPHILS % (AUTO) 2.6 % (0.0-6.0); LYMPHOCYTES # (AUTO) 2.4 /CMM (0.8-4.8); MONOCYTES # (AUTO) 0.4 /CMM (0.1-1.30); NEUTROPHILS # (AUTO) 10.3 /CMM (1.8-8.9)
[2017-08-10] MEDS: BLOOD SUGAR DIAGNOSTIC 1 EACH STRIP IN SCH ×2 (09:00→21:57)
[2017-08-10] MEDS: POLYVINYL ALCOHOL 15 ML BOTTLE EACHEYE SCH ×2 (09:00→17:53)
[2017-08-10] MEDS: INSULIN REGULAR, HUMAN 100 UNIT/ML 3 ML VIAL SQ SCH ×2 (09:00→21:00)
[2017-08-10 09:32] LABS: CALCIUM, SERUM 7.8 mg/dL (8.5-10.1); CARBON DIOXIDE 33 mmol/L (21-32); CHLORIDE 98 mmol/L (98-107); CREATININE 0.9 mg/dL (0.6-1.3); GLUCOSE 110 mg/dL (74-106); MAGNESIUM 1.8 mg/dL (1.8-2.4); PHOSPHORUS 2.3 mg/dL (2.5-4.9); SODIUM SERUM 135 mmol/L (136-145); UREA NITROGEN, BLOOD 21 mg/dL (7-18)
[2017-08-10] MEDS: ASCORBIC ACID 500 MG TABLET GT SCH (10:29)
[2017-08-10] MEDS: AMIODARONE HCL 200 MG TABLET GT SCH (10:30)
[2017-08-10] MEDS: MEMANTINE HCL 5 MG TABLET GT SCH ×2 (10:31→17:53)
[2017-08-10] MEDS: LEVETIRACETAM SOL (5 ML) 100 MG/ML UDC GT SCH ×2 (10:32→21:52)
[2017-08-10] MEDS: FERROUS SULFATE UDC 300 MG/5 ML UDC GT SCH ×3 (10:32→17:52)
[2017-08-10] MEDS: METOPROLOL TARTRATE 25 MG TABLET GT SCH ×2 (10:32→17:53)
[2017-08-10] MEDS: PANTOPRAZOLE 40 MG/PACK PACK NG SCH (10:32)
[2017-08-10] MEDS: PROSOURCE / PROSTAT (PYXIS) 30 ML UDC GT SCH (10:32)
[2017-08-10] MEDS: DAKINS QUARTER STRENGTH (0.125%) 480 ML BOTTLE TOP SCH ×3 (10:35→21:52)
[2017-08-10] MEDS: Z GUARD REMEDY 2 OZ OINT TP SCH ×2 (10:36→21:54)
[2017-08-10] MEDS: MULTIVIT, IRON, MIN NO. 8, FA 1 TAB GT SCH (10:41)
--- NOTE | 2017-08-10 10:53 | NUR ---
RN NOTES BS 117, NO INSULIN COVERAGE
[2017-08-10 12:00] VITALS: BP 98/61
[2017-08-10] MEDS ORDERED: LIDOCAINE 2% 20 ML MDV TP STA (12:09)
--- NOTE | 2017-08-10 12:47 | NUR ---
RN CONSENT NOTES TELEPHONE CONSENT TO FAMILIA ADDISON (CONSERVATOR) # , CONSENTED FOR RIGHT AND LEFT HIP WOUND DEBRIDEMENT AND US GUIDED THORACENTESIS OF LEFT LUNG. WITNESS BY VINICIUS VALLE Addendum: 08/10/17 at 1605 by MICHAEL LAZCANO ADDITIONAL CONSENT: RIGHT HEEL DEBRIDEMENT CONSENT ALSO DONE.
[2017-08-10] MEDS ORDERED: K PHOS NEUTRAL 250 MG TABLET PO ONE (13:30)
[2017-08-10] MEDS ORDERED: LIDOCAINE 1%-EPI 1:100,000 20 ML VIAL TP ONE (15:00)
--- NOTE | 2017-08-10 15:00 | NUR ---
RN NOTES WOUND DEBRIDEMENT WAS DONE BY FOX POPE AND DR LOCO.
--- NOTE | 2017-08-10 15:33 | NUR ---
AT 1330 NOTIFIED BY VINICIUS RODRIGUEZ CONSENT FOR US GUIDED THORACENTESIS HAS BEEN SIGNED. WILL SCHEDULE THORACENTESIS FOR TOMORROW 08/11/16
--- NOTE | 2017-08-10 15:34 | NUR ---
CORRECTION TO ABOVE NOTES08/11/17
[2017-08-10] MEDS: SILVER NITRATE APPLICATOR 1 EA BOX TP SCH (15:41)
[2017-08-10 16:00] VITALS: BP 117/73
--- NOTE | 2017-08-10 17:40 | NUR ---
RT PATIENT RECV, TRACHED ON MECH VENT. VENT ALARMS CHECKED + AUDIBLE. CUFF PRESSURE CHECKED DOORPERSON. SX'D WITH SMALL AMT OF QUINN SEMI THICK SECRETIONS. PATIENT NON VERBAL, NON RESPONSIVE, NO DISTRESS NOTED ON VENT. AMBU BAG AT [facility].
--- NOTE | 2017-08-10 19:30 | NUR ---
READING EFFICIENCY COURSE DIRECTOR NOTES RECEIVED PT IN BED, EYES CLOSED, AROUSABLE TO PAINFUL STIMULI. PT NON-VERBAL. ON TRACH WITH MECHANICAL VENTILATOR, MYKEL WELL. ON TELE MONITORING SR AT 77 BPM. NO DISTRESS NOR SOB NOTED. NO S/S OF PAIN OR DISCOMFORT. ON GTF OF FIBERSOURCE @ 55ML/HR, MYKEL WELL. NO RESIDUAL NOTED. PT RESTING COMFORTABLY AT THIS TIME. ASPIRATION AND SAFETY PRECAUTION OBSERVED. ALL NEEDS ATTENDED AND MET. WILL CONTINUE TO MONITOR.
--- NOTE | 2017-08-10 19:45 | NUR ---
RN CLOSING NOTES PATIENT IN BED RESTING. NO SIGNIFICANT CHANGE IN PATIENT'S CONDITION. NO ACUTE DISTRESS, NO SOB. NO S/S OF PAIN OR DISCOMFORT. ALL NEEDS ATTENDED AND PROVIDED. KEPT PATIENT SAFE AND COMFORTABLE. TURNED AND REPOSITIONED EVERY 2 HRS NEEDED. BED LOCKED/LOW POSITION, HOB ELEVATED, SIDERAILS UP, CALL LIGHT IN REACH. ENDORSED TO NIGHT RN FOR JUNI.
[2017-08-10 20:00] VITALS: BP 116/70
[2017-08-10] MEDS: ATORVASTATIN 10 MG TABLET GT SCH (21:52)
--- NOTE | 2017-08-10 21:52 | NUR ---
WOUND TX OK NOT TO BE DONE TONIGHT PER MOLDER MEAT TOSHIA ODELL . PT S/P RIGHT HEEL WOUND DEBRIDEMENT AND BILATERAL WOUND DEBRIDEMENT BY TOSHIA ODELL AND DR. BRIDGES.
[2017-08-10] MEDS: LANOLIN/MIN OIL/PETROLAT,WHT 3.5 GM TUBE EACHEYE SCH (21:53)
--- NOTE | 2017-08-10 22:10 | NUR ---
BS : 122, NO INSULIN COVERAGE. [facility] [place] [facility] MYKEL WELL. WILL CONT TO MONITOR.
[2017-08-11] VITALS: BP 95/67
[2017-08-11] MEDS: FIBERSOURCE HN 1,000 ML BOTTLE GT PRN (00:31)
[2017-08-11] MEDS: VANCOMYCIN 1 GM in IV D5W 250 ML IV SCH (01:49)
[2017-08-11] MEDS: ALBUTEROL FS 2.5 MG/0.5 ML VIAL.NEB NEB SCH ×4 (02:50→20:35)
[2017-08-11] MEDS: IPRATROPIUM NEB FS 0.5 MG/2.5 ML AMPUL.NEB IH SCH ×4 (02:50→20:35)
[2017-08-11 04:00] VITALS: BP 116/76
[2017-08-11] MEDS: MEROPENEM 500 MG in IV NS 0.9% 50 ML IV SCH ×3 (06:00→22:06)
--- NOTE | 2017-08-11 06:53 | NUR ---
PIPE ASSEMBLY WORKER NOTES PT IN BED, EYES CLOSED, AROUSABLE TO PAINFUL STIMULI. PT NON-VERBAL. ON TRACH WITH MECHANICAL VENTILATOR, 02 SAT IS 100 %. ON TELE MONITORING SR AT 86 BPM. NO DISTRESS NOR SOB NOTED. NO S/S OF PAIN OR DISCOMFORT. ON GTF OF FIBERSOURCE @ 55ML/HR, MYKEL WELL. ALL DUE MEDS GIVEN. BILATERAL HIP AND RIGHT HEEL WOUND , WITH INTACT DRESSING. DEBRIDEMENT DONE YESTERDAY. PT FOR US GUIDED THORACENTESIS TODAY, PT RESTING COMFORTABLY AT THIS TIME. ASPIRATION AND SAFETY PRECAUTION OBSERVED. ALL NEEDS ATTENDED AND MET. WILL ENDORSE TO NEXT SHIFT FOR JUNI. .
[2017-08-11 07:12] VITALS: BP 133/77
--- NOTE | 2017-08-11 07:35 | NUR ---
RN OPEN NOTES RECEIVED REPORT FROM COMMERCIAL INTERN NURSE. PATIENT IS IN BED, NON VERBAL. VENT DEPENDENT. BREATHING IS EVEN BILATERALLY. NO SIGNS AND SYMPTOMS OF DISTRESS. BED IN LOW POSITION, LOCKED AND TWO SIDE RAILS ARE UP, CALL LIGHT WITHIN REACH. WILL CONTINUE TO MONITOR AND ASSESS PATIENT.
[2017-08-11 07:43] LABS: CALCIUM, SERUM 7.7 mg/dL (8.5-10.1); CARBON DIOXIDE 34 mmol/L (21-32); CHLORIDE 98 mmol/L (98-107); CREATININE 0.9 mg/dL (0.6-1.3); GLUCOSE 104 mg/dL (74-106); SODIUM SERUM 134 mmol/L (136-145); UREA NITROGEN, BLOOD 20 mg/dL (7-18)
[2017-08-11 08:00] VITALS: BP 133/77
[2017-08-11] MEDS: INSULIN REGULAR, HUMAN 100 UNIT/ML 3 ML VIAL SQ SCH ×2 (09:00→21:00)
[2017-08-11] MEDS: MULTIVIT, IRON, MIN NO. 8, FA 1 TAB GT SCH (09:05)
[2017-08-11] MEDS: PROSOURCE / PROSTAT (PYXIS) 30 ML UDC GT SCH (09:05)
[2017-08-11] MEDS: FERROUS SULFATE UDC 300 MG/5 ML UDC GT SCH ×3 (09:05→17:18)
[2017-08-11] MEDS: MEMANTINE HCL 5 MG TABLET GT SCH ×2 (09:05→16:49)
[2017-08-11] MEDS: ASCORBIC ACID 500 MG TABLET GT SCH (09:05)
[2017-08-11] MEDS: PANTOPRAZOLE 40 MG/PACK PACK NG SCH (09:05)
[2017-08-11] MEDS: LEVETIRACETAM SOL (5 ML) 100 MG/ML UDC GT SCH ×2 (09:05→22:06)
[2017-08-11] MEDS: DAKINS QUARTER STRENGTH (0.125%) 480 ML BOTTLE TOP SCH ×3 (09:06→22:06)
[2017-08-11] MEDS: POLYVINYL ALCOHOL 15 ML BOTTLE EACHEYE SCH ×2 (09:06→16:33)
[2017-08-11] MEDS: AMIODARONE HCL 200 MG TABLET GT SCH (09:07)
[2017-08-11] MEDS: METOPROLOL TARTRATE 25 MG TABLET GT SCH ×2 (09:07→16:50)
[2017-08-11] MEDS: BLOOD SUGAR DIAGNOSTIC 1 EACH STRIP IN SCH ×2 (09:07→22:07)
[2017-08-11] MEDS: Z GUARD REMEDY 2 OZ OINT TP SCH ×2 (09:07→22:07)
[2017-08-11] MEDS: SILVER NITRATE APPLICATOR 1 EA BOX TP SCH (12:09)
--- NOTE | 2017-08-11 13:45 | NUR ---
THORACENTESIS COMPLETED AT BEDSIDE. 1500ML OF FLUID REMOVED. PATIENT TOLERATED PROCEDURE WELL.
--- NOTE | 2017-08-11 14:20 | NUR ---
SPOKE WITH PHARMACY REGARDING VANCO TROUGH 32. PER PHARMACY; DO NOT ADMINISTER VANCO. HOLDING VANCO
[2017-08-11 16:00] VITALS: BP 117/79
--- NOTE | 2017-08-11 18:40 | NUR ---
RN CLOSING NOTES PT RESTING COMFORTABLY IN BED. NON VERBAL. VENT DEPENDANT. BREATHING EVEN AND UNLABORED. NO SOB OR DISTRESS AT THIS TIME. GT FEEDING RUNNING ORDERED. NO RESIDUALS. KEPT PT COMFORTABLE DURING SHIFT. ALL NEEDS MET. TURNED/REPOSITIONED Q2H. WOUND CARE PROVIDED ORDERED. NO SIGNIFICANT CHANGES DURING THE SHIFT. S/P THORACENTESIS - 1500ML REMOVED AT BEDSIDE. BED REMAINS IN LOW/LOCKED POSITION WITH CALL LIGHT IN REACH. SIDE RAILS UPX2. WILL ENDORSE TO MULTIMEDIA TECHNICIAN NURSE.
--- NOTE | 2017-08-11 19:30 | NUR ---
TELE/RN RECEIVE PATIENT APPEAR SLEEPING, APPEAR COMFORTABLE, TRACH/VENT WORKING WELL, GT FEEDING INFUSING, HOB ELEVATED, WILL MONIT.
[2017-08-11 20:00] VITALS: BP 130/54
--- NOTE | 2017-08-11 22:00 | NUR ---
TELE/RN DRESSING TO BOTH HIPS CHANGED PER ORDER.
[2017-08-11] MEDS: ATORVASTATIN 10 MG TABLET GT SCH (22:09)
[2017-08-11] MEDS: LANOLIN/MIN OIL/PETROLAT,WHT 3.5 GM TUBE EACHEYE SCH (22:09)
--- NOTE | 2017-08-11 22:21 | NUR ---
Received the patient on AC16,550,40% as per MD order. Breath sounds equal bilateral. Breathing tx given as ordered and tolerated well. No adverse reactions noted. Ambu bag at the bed side. Vent plugged into red outlet and alarms set and audible. Suctioned patient's airways as needed.
[2017-08-12] VITALS: BP 120/65
--- NOTE | 2017-08-12 00:54 | NUR ---
TELE/RN PATIENT IS SLEEPING AT THIS TIME, APPEAR COMFORTABLE, NO CHANGE IN CONDITION. WILL CONTINUE TO MONITOR.
[2017-08-12] MEDS: IPRATROPIUM NEB FS 0.5 MG/2.5 ML AMPUL.NEB IH SCH ×4 (01:01→19:07)
[2017-08-12] MEDS: ALBUTEROL FS 2.5 MG/0.5 ML VIAL.NEB NEB SCH ×4 (01:01→19:07)
[2017-08-12] MEDS: IV NS 0.9% 1,000 ML IV PRN (03:39)
[2017-08-12] MEDS: FIBERSOURCE HN 1,000 ML BOTTLE GT PRN (03:43)
[2017-08-12 04:00] VITALS: BP 131/67
[2017-08-12] MEDS: MEROPENEM 500 MG in IV NS 0.9% 50 ML IV SCH ×3 (05:25→21:00)
--- NOTE | 2017-08-12 06:40 | NUR ---
TELE/RN SLEEPING, COMFORTABLE, NO DISTRESS NOTED, GT FEEDING INFUSING, HOB ELEVATED. ALL NEEDS ATTENDED AT THIS TIME, WILL CONTINUE TO MONITOR.
[2017-08-12 06:57] VITALS: BP 122/69
--- NOTE | 2017-08-12 07:30 | NUR ---
AM RN NOTE Received pt lying in his bed with eyes closed. On trach/ vent settings noted. IV site intact and patent, continue on IV hydration. On GT feeding, tolerated well. Will continue to monitor.
[2017-08-12 08:00] LABS: BASOPHILS # (AUTO) 0.1 /CMM (0.0-0.2); BASOPHILS % (AUTO) 0.4 % (0.0-2.0); EOSINOPHILS % (AUTO) 8.3 % (0.0-6.0); HEMATOCRIT 25 % (39-51); HEMOGLOBIN 7.9 g/dL (13.5-17.5); LYMPHOCYTES # (AUTO) 2.5 /CMM (0.8-4.8); LYMPHOCYTES % (AUTO) 20.1 % (20.0-44.0); MEAN CORPUSCULAR HEMOGLOBIN 29 PG (26.0-33.0); MEAN CORPUSCULAR HGB CONC 32 g/dl (31.0-36.0); MEAN CORPUSCULAR VOLUME 91 fL (80-96); MONOCYTES # (AUTO) 0.6 /CMM (0.1-1.30); MONOCYTES % (AUTO) 4.6 % (2.0-12.0); NEUTROPHILS # (AUTO) 8.2 /CMM (1.8-8.9); NEUTROPHILS % (AUTO) 66.6 % (43.0-81.0); PLATELET COUNT (AUTO) 327 /CMM (150-450); RDW COEFFICIENT OF VARIATION 21.1 (11.5-15.0); RED BLOOD CELL COUNT(AUTO) 2.69 MIL/uL (4.5-6.0); WHITE BLOOD COUNT (AUTO) 12.3 K/uL (4.3-11.0)
[2017-08-12] MEDS ORDERED: VANCOMYCIN 0.75 GM in IV D5W 250 ML IV SCH (08:00)
[2017-08-12 08:13] LABS: CALCIUM, SERUM 7.6 mg/dL (8.5-10.1); CARBON DIOXIDE 32 mmol/L (21-32); CHLORIDE 98 mmol/L (98-107); CREATININE 0.8 mg/dL (0.6-1.3); GLUCOSE 111 mg/dL (74-106); MAGNESIUM 1.8 mg/dL (1.8-2.4); PHOSPHORUS 2.3 mg/dL (2.5-4.9); SODIUM SERUM 133 mmol/L (136-145); UREA NITROGEN, BLOOD 19 mg/dL (7-18)
[2017-08-12] MEDS: ASCORBIC ACID 500 MG TABLET GT SCH (08:58)
[2017-08-12] MEDS: LEVETIRACETAM SOL (5 ML) 100 MG/ML UDC GT SCH ×2 (08:58→21:00)
[2017-08-12] MEDS: MULTIVIT, IRON, MIN NO. 8, FA 1 TAB GT SCH (08:58)
[2017-08-12] MEDS: PANTOPRAZOLE 40 MG/PACK PACK NG SCH (08:58)
[2017-08-12] MEDS: MEMANTINE HCL 5 MG TABLET GT SCH ×2 (08:58→16:40)
[2017-08-12] MEDS: METOPROLOL TARTRATE 25 MG TABLET GT SCH ×2 (08:59→16:40)
[2017-08-12] MEDS: AMIODARONE HCL 200 MG TABLET GT SCH (08:59)
[2017-08-12] MEDS: Z GUARD REMEDY 2 OZ OINT TP SCH ×2 (09:00→21:01)
[2017-08-12] MEDS: POLYVINYL ALCOHOL 15 ML BOTTLE EACHEYE SCH ×2 (09:00→16:39)
[2017-08-12] MEDS: FERROUS SULFATE UDC 300 MG/5 ML UDC GT SCH ×3 (09:00→17:24)
[2017-08-12] MEDS: INSULIN REGULAR, HUMAN 100 UNIT/ML 3 ML VIAL SQ SCH ×2 (09:00→21:00)
[2017-08-12] MEDS: DAKINS QUARTER STRENGTH (0.125%) 480 ML BOTTLE TOP SCH ×3 (09:00→21:02)
[2017-08-12] MEDS: PROSOURCE / PROSTAT (PYXIS) 30 ML UDC GT SCH (09:01)
[2017-08-12] MEDS: BLOOD SUGAR DIAGNOSTIC 1 EACH STRIP IN SCH ×2 (09:04→21:00)
--- NOTE | 2017-08-12 09:05 | NUR ---
AM RN NOTE BS 120 MG/DL, NO S/S NEEDED.
[2017-08-12] MEDS ORDERED: Sodium Phosphate 5 MMOL in IV D5W 100 ML IV ONE (11:30)
[2017-08-12 12:00] VITALS: BP 133/70
[2017-08-12] MEDS: SILVER NITRATE APPLICATOR 1 EA BOX TP SCH (13:47)
[2017-08-12 16:00] VITALS: BP 138/70
[2017-08-12] MEDS: VANCOMYCIN 0.75 GM in IV D5W 250 ML IV SCH (17:45)
--- NOTE | 2017-08-12 17:46 | NUR ---
AM RN NOTE Vanco trough 22, new dose of vanco verified with Na and administered.
--- NOTE | 2017-08-12 18:32 | NUR ---
AM RN NOTE Pt lying in his bed, all needs met and attended in timely manner. Vent/trach settings noted. IV site intact. GT feeing continue as ordered and tolerated well. Will endorse care to next shift.
--- NOTE | 2017-08-12 19:31 | NUR ---
TELE/RN RECEIVE PATIENT APPEAR SLEEPING, APPEAR COMFORTABLE, NO DISTRESS NOTED, VENT WORKING WELL, GT FEEDING INFUSING, NO RESIDUAL NOTED, HOB ELEVATED. WILL MONITOR.
[2017-08-12 20:00] VITALS: BP 138/70
[2017-08-12] MEDS: ATORVASTATIN 10 MG TABLET GT SCH (21:02)
[2017-08-12] MEDS: LANOLIN/MIN OIL/PETROLAT,WHT 3.5 GM TUBE EACHEYE SCH (21:02)
[2017-08-13] VITALS: BP 101/64
[2017-08-13] MEDS: ALBUTEROL FS 2.5 MG/0.5 ML VIAL.NEB NEB SCH ×4 (01:10→20:05)
[2017-08-13] MEDS: IPRATROPIUM NEB FS 0.5 MG/2.5 ML AMPUL.NEB IH SCH ×4 (01:10→20:05)
[2017-08-13 04:00] VITALS: BP 123/68
[2017-08-13] MEDS: MEROPENEM 500 MG in IV NS 0.9% 50 ML IV SCH ×3 (05:10→21:05)
[2017-08-13] MEDS: IV NS 0.9% 1,000 ML IV PRN (05:10)
[2017-08-13] MEDS: FIBERSOURCE HN 1,000 ML BOTTLE GT PRN (05:11)
--- NOTE | 2017-08-13 06:42 | NUR ---
TELE/RN SLEEPING, APPEAR COMFORTABLE, NO DISTRESS NOTED, GT FEEDING INFUSING, NO RESIDUAL NOTE. HOB ELEVATED.TRACH CARE HAS BEEN DONE, TOLERATED, MORNING CARE HAS BEEN DONE, DRESSING CHANGE BOTH HIPS WAS CHANGED PER ORDER. ALL NEEDS ATTENDED AT THIS TIME. WILL CONTINUE TO MONITOR.
--- NOTE | 2017-08-13 07:24 | NUR ---
CISCO CONSULTANT OPENING NOTES RECEIVED PT FROM NIGHTSHIFT NURSE IN STABLE CONDITION. PT IS OBTUNDENT, NONVERBAL, AND OPENS EYES SPONTANEOUSLY ON OCCASION. NO SOB OR SIGNS OF DISTRESS NOTED. BREATHING IS EVEN AND UNLABORED PT IS TRACH AND VENT DEPENDENT. VENTILATOR SET ORDERED. PT IS TOLERATING VENTILATOR WELL AND CURRENTLY SATING @ 99%. GTUBE NOTED TO BE PATENT AND INTACT. PLACEMENT VERIFIED VIA AUSCULTATION. PT TOLERATING GTUBE FEEDING WELL. NO DIARRHEA, OR EPISODES OF N/V REPORTED BY NIGHTSHIFT NURSE. NO RESIDUALS ASPIRATED AT THIS TIME. MIDLINE NOTED TO BE PATENT AND INTACT. WOUND CARE PREVIOUSLY DONE BY NIGHTSHIFT NURSE. WILL CHANGE DRESSINGS AND PROVIDE FURTHER SKIN CARE DIRECTED. BED IN LOW LOCKED POSITION, SIDE RAILS UP X3, CALL LIGHT WITHIN REACH, BED ALARM ON. WILL CONTINUE TO MONITOR
[2017-08-13 07:56] LABS: CALCIUM, SERUM 7.3 mg/dL (8.5-10.1); CARBON DIOXIDE 34 mmol/L (21-32); CHLORIDE 100 mmol/L (98-107); CREATININE 0.8 mg/dL (0.6-1.3); GLUCOSE 108 mg/dL (74-106); POTASSIUM 4.1 mmol/L (3.5-5.1); SODIUM SERUM 135 mmol/L (136-145); UREA NITROGEN, BLOOD 17 mg/dL (7-18)
[2017-08-13 08:00] VITALS: BP 142/75
[2017-08-13] MEDS: INSULIN REGULAR, HUMAN 100 UNIT/ML 3 ML VIAL SQ SCH ×2 (09:00→21:00)
[2017-08-13] MEDS: DAKINS QUARTER STRENGTH (0.125%) 480 ML BOTTLE TOP SCH ×3 (09:39→21:06)
[2017-08-13] MEDS: BLOOD SUGAR DIAGNOSTIC 1 EACH STRIP IN SCH ×2 (09:40→21:05)
[2017-08-13] MEDS: PROSOURCE / PROSTAT (PYXIS) 30 ML UDC GT SCH (09:40)
[2017-08-13] MEDS: MEMANTINE HCL 5 MG TABLET GT SCH ×2 (09:40→18:40)
[2017-08-13] MEDS: PANTOPRAZOLE 40 MG/PACK PACK NG SCH (09:40)
[2017-08-13] MEDS: LEVETIRACETAM SOL (5 ML) 100 MG/ML UDC GT SCH ×2 (09:41→21:05)
[2017-08-13] MEDS: METOPROLOL TARTRATE 25 MG TABLET GT SCH ×2 (09:41→18:41)
[2017-08-13] MEDS: AMIODARONE HCL 200 MG TABLET GT SCH (09:42)
[2017-08-13] MEDS: MULTIVIT, IRON, MIN NO. 8, FA 1 TAB GT SCH (09:42)
[2017-08-13] MEDS: POLYVINYL ALCOHOL 15 ML BOTTLE EACHEYE SCH ×2 (09:42→18:41)
[2017-08-13] MEDS: ASCORBIC ACID 500 MG TABLET GT SCH (09:42)
[2017-08-13] MEDS: Z GUARD REMEDY 2 OZ OINT TP SCH ×2 (09:44→21:05)
[2017-08-13] MEDS: FERROUS SULFATE UDC 300 MG/5 ML UDC GT SCH ×3 (09:53→18:39)
[2017-08-13] MEDS: SILVER NITRATE APPLICATOR 1 EA BOX TP SCH (12:47)
[2017-08-13 16:00] VITALS: BP 131/76
[2017-08-13] MEDS: VANCOMYCIN 0.75 GM in IV D5W 250 ML IV SCH (18:56)
--- NOTE | 2017-08-13 19:02 | NUR ---
CIGAR PACKER AND PICKER CLOSING NOTES PT REMAINS STABLE. NO ACUTE CHANGES IN CONDITION THROUGHOUT SHIFT. WOUND AND SKIN CARE RENDERED CARE RENDERED ORDERED. PT WAS REPOSITIONED AND KEPT CLEAN. HE CONTINUE TO TOLERATE BOTH GTUBE FEEDING AND MECHANICAL VENT WELL. ALL NEEDS MET AND ORDERS CARRIED OUT ACCORDINGLY. ALL DUE MEDS GIVEN. WILL ENDORSE TO NIGHTSHIFT NURSE FOR JUNI
--- NOTE | 2017-08-13 19:45 | NUR ---
MOVIE PROJECTIONIST INITIAL NOTES PT IS IN BED RESTING, NON VERBAL/ OBTUNDED. TELE MONITOR SHOWS SR-73. TRACH DEPENDENT, VENT SETTINGS ORDERED AND TOLERATING WELL. NO SIGNS OF SOB OR DISTRESS. G-TUBE FEEDING IS RUNNING AT 55 ML/ HR, TOLERATING WELL. WOUND DRESSING CHANGES JUST COMPLETED AND TO BE REDONE DURING THE SHIFT. BED IS IN LOW AND LOCKED POSITION. WILL CONTINUE TO MONITOR PT
[2017-08-13 20:00] VITALS: BP 136/71
--- NOTE | 2017-08-13 20:05 | NUR ---
Received Trach patient on noted settings. DRAWSTRING KNOTTER was done. Ambu bag at the bed side. Vent plugged into red outlet and alarms set and audible. Q6 Breathing tx given as MD ORDERED. No adverse reaction noted. SX mod amount of thick white/yellow secretions. Will continue to monitor patient.
[2017-08-13] MEDS: ATORVASTATIN 10 MG TABLET GT SCH (21:05)
[2017-08-13] MEDS: LANOLIN/MIN OIL/PETROLAT,WHT 3.5 GM TUBE EACHEYE SCH (21:07)
[2017-08-14] VITALS: BP 149/85
[2017-08-14] MEDS: IPRATROPIUM NEB FS 0.5 MG/2.5 ML AMPUL.NEB IH SCH ×4 (01:10→19:25)
[2017-08-14] MEDS: ALBUTEROL FS 2.5 MG/0.5 ML VIAL.NEB NEB SCH ×4 (01:10→19:25)
[2017-08-14] MEDS: MEROPENEM 500 MG in IV NS 0.9% 50 ML IV SCH ×3 (04:30→21:37)
[2017-08-14] MEDS: FIBERSOURCE HN 1,000 ML BOTTLE GT PRN (04:40)
--- NOTE | 2017-08-14 07:02 | NUR ---
PLASTIC PARTS DESIGNER CLOSING NOTES PT IS IN BED RESTING. BREATHING EVENLY AND UNLABORED ON MECH VENT, TOLERATING WELL. GTUBE FEEDING IS RUNNING AT 55 ML/HR, NO RESIDUAL NOTED. WOUND CARE RENDERED. AL NEEDS WERE ANTICIPATED AND MET. BED IS IN LOW AND LOCKED POSITION. WILL ENDORSE TO DAYSHIFT.
[2017-08-14 08:00] VITALS: BP 148/81
--- NOTE | 2017-08-14 08:00 | NUR ---
TERMINOLOGIST OPENING NOTE PATIENT IS OBTUNDED, NON-VERBAL. TRACH PORTEX #8 PRESENT, ON MECHANICAL VENT. NO SOB OR DISTRESS NOTED. CALL LIGHT WITHIN REACH. SAFETY MEASURES IMPLEMENTED. IV INTACT AND PATENT NO REDNESS OR SWELLING NOTED. G-TUBE PRESENT, INTACT AND PATENT FLUSHES WELL. TUBE FEEDING STOPPED AT 0800 AND TO RESUME AT 1200. BLOOD SUGARS TO BE MONITORED THROUGHOUT SHIFT. WOUND TREATMENT TO BE DONE. WILL BE SUCTIONED NEEDED. WILL CONTINUE TO MONITOR THROUGHOUT SHIFT.
[2017-08-14] MEDS: INSULIN REGULAR, HUMAN 100 UNIT/ML 3 ML VIAL SQ SCH ×2 (09:00→21:00)
[2017-08-14] MEDS: MULTIVIT, IRON, MIN NO. 8, FA 1 TAB GT SCH (09:04)
[2017-08-14] MEDS: LEVETIRACETAM SOL (5 ML) 100 MG/ML UDC GT SCH ×2 (09:04→21:37)
[2017-08-14] MEDS: METOPROLOL TARTRATE 25 MG TABLET GT SCH ×2 (09:04→17:16)
[2017-08-14] MEDS: FERROUS SULFATE UDC 300 MG/5 ML UDC GT SCH ×3 (09:04→17:15)
[2017-08-14] MEDS: ASCORBIC ACID 500 MG TABLET GT SCH (09:04)
[2017-08-14] MEDS: AMIODARONE HCL 200 MG TABLET GT SCH (09:05)
[2017-08-14] MEDS: MEMANTINE HCL 5 MG TABLET GT SCH ×2 (09:05→17:17)
[2017-08-14] MEDS: BLOOD SUGAR DIAGNOSTIC 1 EACH STRIP IN SCH ×2 (09:05→21:37)
[2017-08-14] MEDS: PANTOPRAZOLE 40 MG/PACK PACK NG SCH (09:05)
[2017-08-14] MEDS: POLYVINYL ALCOHOL 15 ML BOTTLE EACHEYE SCH ×2 (09:05→17:17)
[2017-08-14] MEDS: PROSOURCE / PROSTAT (PYXIS) 30 ML UDC GT SCH (09:05)
[2017-08-14] MEDS: DAKINS QUARTER STRENGTH (0.125%) 480 ML BOTTLE TOP SCH ×3 (09:06→21:39)
[2017-08-14] MEDS: Z GUARD REMEDY 2 OZ OINT TP SCH ×2 (09:06→21:38)
[2017-08-14] MEDS: IV NS 0.9% 1,000 ML IV PRN (11:39)
[2017-08-14] MEDS: SILVER NITRATE APPLICATOR 1 EA BOX TP SCH (11:42)
[2017-08-14 12:00] VITALS: BP 138/75
[2017-08-14 16:00] VITALS: BP 121/72
[2017-08-14] MEDS ORDERED: HYDROGEL DRESSING 90 GM TUBE TP PRN (16:30)
[2017-08-14] MEDS: VANCOMYCIN 0.75 GM in IV D5W 250 ML IV SCH (17:17)
[2017-08-14 18:32] LABS: ALANINE AMINOTRANSFERASE 45 U/L (12-78); ALBUMIN 1.6 g/dL (3.4-5.0); ALKALINE PHOSPHATASE 78 U/L (46-116); ASPARTATE AMINOTRANSFERASE 50 U/L (15-37); BILIRUBIN,TOTAL 0.3 mg/dL (0.2-1.0); CALCIUM, SERUM 7.5 mg/dL (8.5-10.1); CARBON DIOXIDE 33 mmol/L (21-32); CHLORIDE 99 mmol/L (98-107); CREATININE 0.7 mg/dL (0.6-1.3); GLUCOSE 97 mg/dL (74-106); MAGNESIUM 1.8 mg/dL (1.8-2.4); PHOSPHORUS 2.5 mg/dL (2.5-4.9); POTASSIUM 4.2 mmol/L (3.5-5.1); SODIUM SERUM 134 mmol/L (136-145); TOTAL PROTEIN, SERUM 6.7 g/dL (6.4-8.2); UREA NITROGEN, BLOOD 17 mg/dL (7-18)
[2017-08-14 18:39] LABS: BASOPHILS % (AUTO) 0.3 % (0.0-2.0); EOSINOPHILS # (AUTO) 1.8 /CMM (0.0-0.7); EOSINOPHILS % (AUTO) 13.7 % (0.0-6.0); HEMATOCRIT 23 % (39-51); HEMOGLOBIN 7.3 g/dL (13.5-17.5); LYMPHOCYTES # (AUTO) 3.1 /CMM (0.8-4.8); LYMPHOCYTES % (AUTO) 23.3 % (20.0-44.0); MEAN CORPUSCULAR HEMOGLOBIN 29 PG (26.0-33.0); MEAN CORPUSCULAR HGB CONC 32 g/dl (31.0-36.0); MEAN CORPUSCULAR VOLUME 91 fL (80-96); MONOCYTES # (AUTO) 0.7 /CMM (0.1-1.30); MONOCYTES % (AUTO) 5.2 % (2.0-12.0); NEUTROPHILS # (AUTO) 7.6 /CMM (1.8-8.9); NEUTROPHILS % (AUTO) 57.5 % (43.0-81.0); PLATELET COUNT (AUTO) 385 /CMM (150-450); WHITE BLOOD COUNT (AUTO) 13.2 K/uL (4.3-11.0)
--- NOTE | 2017-08-14 18:47 | NUR ---
DOCK ATTENDANT CLOSING NOTE PATIENT IS OBTUNDED. NO FACIAL GRIMACING NOTED FOR PAIN. NO SOB OR DISTRESS NOTED. CALL LIGHT WITHIN REACH AT ALL TIMES. SAFETY MEASURES IMPLEMENTED. ALL DUE MEDICATIONS GIVEN ORDERED. ALL NURSING CARE NEEDS ATTENDED TO NEEDED. TURNED AND REPOSITIONED Q2H AND NEEDED. WOUND TREATMENT DONE ORDERED. ON MECHANICAL VENT. LABS IN AM. TELE MONITOR-70S. GET MIDLINE INTACT AND PATENT NO REDNESS OR SWELLING NOTED, IV FLUIDS RUNNING AT THIS TIME AT 75 ML/HR TOLERATING WELL. WILL ENDORSE TO DIRECTOR OF REVENUE NURSE FOR JUNI
--- NOTE | 2017-08-14 19:35 | NUR ---
CARTON FORMING MACHINE TENDER INITIAL NOTES PT IS IN BED RESTING, NON VERBAL/ OBTUNDED. TELE MONITOR SHOWS SR-72. TRACH DEPENDENT, VENT SETTINGS ORDERED AND TOLERATING WELL. NO SIGNS OF SOB OR DISTRESS. G-TUBE FEEDING IS RUNNING AT 55 ML/ HR, TOLERATING WELL. WOUND DRESSING TO BE DONE. BED IS IN LOW AND LOCKED POSITION. WILL CONTINUE TO MONITOR PT
[2017-08-14 20:00] VITALS: BP 150/78
[2017-08-14] MEDS: ATORVASTATIN 10 MG TABLET GT SCH (21:37)
[2017-08-14] MEDS: LANOLIN/MIN OIL/PETROLAT,WHT 3.5 GM TUBE EACHEYE SCH (21:38)
[2017-08-15] VITALS: BP 136/69
[2017-08-15] MEDS: ALBUTEROL FS 2.5 MG/0.5 ML VIAL.NEB NEB SCH ×4 (01:23→20:33)
[2017-08-15] MEDS: IPRATROPIUM NEB FS 0.5 MG/2.5 ML AMPUL.NEB IH SCH ×4 (01:23→20:33)
--- NOTE | 2017-08-15 02:08 | NUR ---
Received Trach patient on noted settings. FIELD CASHIER was done. Ambu bag at the bed side. Vent plugged into red outlet and alarms set and audible. Q6 Breathing tx given as MD ORDERED. No adverse reaction noted. SX mod amount of thick white/yellow secretions. Will continue to monitor patient.
[2017-08-15] MEDS: IV NS 0.9% 1,000 ML IV PRN (03:53)
[2017-08-15] MEDS: FIBERSOURCE HN 1,000 ML BOTTLE GT PRN (03:55)
[2017-08-15 04:00] VITALS: BP 138/71
[2017-08-15] MEDS: MEROPENEM 500 MG in IV NS 0.9% 50 ML IV SCH ×3 (04:00→21:12)
--- NOTE | 2017-08-15 06:22 | NUR ---
SHUTTLE HAND CLOSING NOTES PT IS IN BED RESTING. BREATHING EVENLY AND UNLABORED ON MECH VENT, TOLERATING WELL. GTUBE FEEDING IS RUNNING AT 55 ML/HR, NO RESIDUAL NOTED. WOUND CARE RENDERED. AL NEEDS WERE ANTICIPATED AND MET. BED IS IN LOW AND LOCKED POSITION. WILL ENDORSE TO DAYSHIFT.
--- NOTE | 2017-08-15 07:43 | NUR ---
FLIGHT NURSE OPENING NOTE PATIENT IS OBTUNDED. NO FACIAL GRIMACING NOTED FOR PAIN. NO SOB OR DISTRESS NOTED. CALL LIGHT WITHIN REACH. SAFETY MEASURES IMPLEMENTED. ON MECHANICAL VENT SETTINGS. WOUND TREATMENT TO BE DONE QSHIFT. BLOOD SUGAR TO BE MONITORED THROUGHOUT SHIFT. GET MIDLINE INTACT AND PATENT NO REDNESS OR SWELLING NOTED, IV FLUIDS RUNNING AT 75 ML/HR TOLERATING WELL. LABS THIS MORNING AWAITING RESULTS. G-TUBE INTACT AND PATENT, TUBE FEEDING RUNNING AT 55 ML/HR, TO BE OFF AT 0800 AND BACK ON AT 1200. WILL FLUSH NEEDED. TELE MONITOR-78. WILL CONTINUE TO MONITOR THROUGHOUT SHIFT.
[2017-08-15 08:00] VITALS: BP 133/60
[2017-08-15 08:15] LABS: BASOPHILS # (AUTO) 0.2 /CMM (0.0-0.2); BASOPHILS % (AUTO) 1.7 % (0.0-2.0); EOSINOPHILS # (AUTO) 1.7 /CMM (0.0-0.7); EOSINOPHILS % (AUTO) 12.6 % (0.0-6.0); HEMATOCRIT 22 % (39-51); HEMOGLOBIN 7.2 g/dL (13.5-17.5); LYMPHOCYTES # (AUTO) 3.9 /CMM (0.8-4.8); LYMPHOCYTES % (AUTO) 29.1 % (20.0-44.0); MEAN CORPUSCULAR HEMOGLOBIN 29 PG (26.0-33.0); MEAN CORPUSCULAR HGB CONC 32 g/dl (31.0-36.0); MEAN CORPUSCULAR VOLUME 90 fL (80-96); MONOCYTES # (AUTO) 0.9 /CMM (0.1-1.30); MONOCYTES % (AUTO) 6.4 % (2.0-12.0); NEUTROPHILS # (AUTO) 6.8 /CMM (1.8-8.9); NEUTROPHILS % (AUTO) 50.2 % (43.0-81.0); PLATELET COUNT (AUTO) 276 /CMM (150-450); RED BLOOD CELL COUNT(AUTO) 2.49 MIL/uL (4.5-6.0); WHITE BLOOD COUNT (AUTO) 13.6 K/uL (4.3-11.0)
[2017-08-15] MEDS: INSULIN REGULAR, HUMAN 100 UNIT/ML 3 ML VIAL SQ SCH ×2 (09:00→21:00)
[2017-08-15] MEDS: PROSOURCE / PROSTAT (PYXIS) 30 ML UDC GT SCH (09:06)
[2017-08-15] MEDS: PANTOPRAZOLE 40 MG/PACK PACK NG SCH (09:06)
[2017-08-15] MEDS: FERROUS SULFATE UDC 300 MG/5 ML UDC GT SCH ×3 (09:06→17:39)
[2017-08-15] MEDS: AMIODARONE HCL 200 MG TABLET GT SCH (09:07)
[2017-08-15] MEDS: LEVETIRACETAM SOL (5 ML) 100 MG/ML UDC GT SCH ×2 (09:07→21:11)
[2017-08-15] MEDS: METOPROLOL TARTRATE 25 MG TABLET GT SCH ×2 (09:07→17:39)
[2017-08-15] MEDS: ASCORBIC ACID 500 MG TABLET GT SCH (09:07)
[2017-08-15] MEDS: MULTIVIT, IRON, MIN NO. 8, FA 1 TAB GT SCH (09:07)
[2017-08-15] MEDS: MEMANTINE HCL 5 MG TABLET GT SCH ×2 (09:07→17:39)
[2017-08-15] MEDS: BLOOD SUGAR DIAGNOSTIC 1 EACH STRIP IN SCH ×2 (09:08→21:11)
[2017-08-15] MEDS: POLYVINYL ALCOHOL 15 ML BOTTLE EACHEYE SCH ×2 (09:10→17:40)
[2017-08-15] MEDS: DAKINS QUARTER STRENGTH (0.125%) 480 ML BOTTLE TOP SCH ×3 (09:11→21:25)
[2017-08-15] MEDS: Z GUARD REMEDY 2 OZ OINT TP SCH ×2 (09:11→21:13)
[2017-08-15 09:16] LABS: CALCIUM, SERUM 7.3 mg/dL (8.5-10.1); CARBON DIOXIDE 32 mmol/L (21-32); CHLORIDE 98 mmol/L (98-107); CREATININE 0.8 mg/dL (0.6-1.3); GLUCOSE 81 mg/dL (74-106); MAGNESIUM 1.7 mg/dL (1.8-2.4); PHOSPHORUS 2.5 mg/dL (2.5-4.9); POTASSIUM 4.4 mmol/L (3.5-5.1); SODIUM SERUM 134 mmol/L (136-145); UREA NITROGEN, BLOOD 17 mg/dL (7-18)
[2017-08-15] MEDS: SILVER NITRATE APPLICATOR 1 EA BOX TP SCH (11:47)
[2017-08-15 12:02] VITALS: BP 136/75
[2017-08-15] MEDS: Magnesium 1GM/D5W 100ML PREMIX 100 ML IV SCH ×2 (14:04→15:07)
[2017-08-15 16:00] VITALS: BP 112/65
[2017-08-15] MEDS: VANCOMYCIN 0.75 GM in IV D5W 250 ML IV SCH (17:40)
--- NOTE | 2017-08-15 18:52 | NUR ---
COLORED LEATHER SETTER CLOSING NOTE PATIENT RESTING COMFORTABLY AT THIS TIME. NO SOB OR DISTRESS NOTED. CALL LIGHT WITHIN REACH AT ALL TIMES. SAFETY MEASURES IMPLEMENTED. PATIENT IS OBTUNDED. NO FACIAL GRIMACING NOTED FOR PAIN. GET MIDLINE INTACT AND PATENT NO REDNESS OR SWELLING NOTED, NO FLUIDS AT THIS TIME. AWAITING FOR BLOOD CONSENT FOR BLOOD TRANSFUSION. ALL DUE MEDICATIONS GIVEN ORDERED. ALL NURSING CARE NEEDS ATTENDED TO NEEDED. VENT SETTINGS IN PLACE. WOUND TREATMENT DONE ON SHIFT, BLOOD SUGAR MONITORED. WILL ENDORSE TO STUDENT ASSISTANT FOR JUNI
--- NOTE | 2017-08-15 19:00 | NUR ---
CAN DOFFER OPENING NOTES PT RESTING IN BED. PT IS OBTUNDED AND NON-VERBAL. NO APPARENT S/S OF PAIN, DISTRESS, OR SOB NOTED AT THIS TIME. PT IS TELE MONITORED SINUS RHYTHM 1ST DEGREE AV BLOCK WITH OCCASIONAL PVCS, RATE OF 66. PT HAS A RIGHT UPPER ARM MIDLINE, INTACT AND PATENT. SAFETY PRECAUTIONS IN PLACE. BED IN LOW, LOCKED POSITION, X2SIDE RAILS UP, CALL LIGHT WITHIN REACH. WILL CONTINUE TO MONITOR.
[2017-08-15 20:00] VITALS: BP 144/70
--- NOTE | 2017-08-15 20:33 | NUR ---
RCVD PT ON VENT WITH NOTED SETTINGS. VENT PLUGGED INTO RED OUTLET, VENT ALARM WORKING AND AUDIBLE, AMBU BAG AT BEDSIDE. SUCTIONED MODERATE YELLOW THICK SECRETIONS WITH TINGED BLOOD. BREATHING TX GIVEN PER MD'S ORDER. WILL CONTINUE TO MONITOR THE PT.
[2017-08-15] MEDS: ATORVASTATIN 10 MG TABLET GT SCH (21:11)
[2017-08-15] MEDS: LANOLIN/MIN OIL/PETROLAT,WHT 3.5 GM TUBE EACHEYE SCH (21:13)
[2017-08-16] VITALS (8 sets, daily range): BP systolic 96–139; BP diastolic 58–82
[2017-08-16] MEDS: ALBUTEROL FS 2.5 MG/0.5 ML VIAL.NEB NEB SCH ×3 (01:31→13:39)
[2017-08-16] MEDS: IPRATROPIUM NEB FS 0.5 MG/2.5 ML AMPUL.NEB IH SCH ×3 (01:32→13:39)
[2017-08-16] MEDS: MEROPENEM 500 MG in IV NS 0.9% 50 ML IV SCH ×2 (04:23→13:53)
[2017-08-16 07:37] LABS: BASOPHILS % (AUTO) 0.4 % (0.0-2.0); EOSINOPHILS # (AUTO) 1.8 /CMM (0.0-0.7); EOSINOPHILS % (AUTO) 13.8 % (0.0-6.0); HEMATOCRIT 24 % (39-51); HEMOGLOBIN 7.9 g/dL (13.5-17.5); LYMPHOCYTES # (AUTO) 3.4 /CMM (0.8-4.8); LYMPHOCYTES % (AUTO) 25.5 % (20.0-44.0); MEAN CORPUSCULAR HEMOGLOBIN 30 PG (26.0-33.0); MEAN CORPUSCULAR HGB CONC 33 g/dl (31.0-36.0); MEAN CORPUSCULAR VOLUME 91 fL (80-96); MONOCYTES # (AUTO) 0.6 /CMM (0.1-1.30); MONOCYTES % (AUTO) 4.6 % (2.0-12.0); NEUTROPHILS # (AUTO) 7.4 /CMM (1.8-8.9); NEUTROPHILS % (AUTO) 55.7 % (43.0-81.0); PLATELET COUNT (AUTO) 400 /CMM (150-450); RDW COEFFICIENT OF VARIATION 19.8 (11.5-15.0); RED BLOOD CELL COUNT(AUTO) 2.65 MIL/uL (4.5-6.0); WHITE BLOOD COUNT (AUTO) 13.2 K/uL (4.3-11.0)
[2017-08-16 07:48] LABS: CALCIUM, SERUM 7.3 mg/dL (8.5-10.1); CARBON DIOXIDE 32 mmol/L (21-32); CHLORIDE 98 mmol/L (98-107); CREATININE 0.8 mg/dL (0.6-1.3); GLUCOSE 104 mg/dL (74-106); PHOSPHORUS 2.5 mg/dL (2.5-4.9); POTASSIUM 4.3 mmol/L (3.5-5.1); SODIUM SERUM 131 mmol/L (136-145); UREA NITROGEN, BLOOD 20 mg/dL (7-18)
--- NOTE | 2017-08-16 08:20 | NUR ---
ms rn received on bed,non verbal patient, vent dependent,on g tube feeding at this time,repositioned for comfort.will monitor patient's condition.
--- NOTE | 2017-08-16 08:25 | NUR ---
NUCLEAR EQUIPMENT OPERATOR NOTES PATIENT LEFT UNIT IN STABLE CONDITION. NO SOB OR ACUTE DISTRESS. PATIENT COMFORTABLE, CLEAN AND DRY. NO MISSING BELONGINGS. GT IN PLACE, PATENT AND INTACT. LEFT VIA GURNEY WITH AMBULNZ UNIT 215
[2017-08-16] MEDS: INSULIN REGULAR, HUMAN 100 UNIT/ML 3 ML VIAL SQ SCH (09:00)
[2017-08-16] MEDS: POLYVINYL ALCOHOL 15 ML BOTTLE EACHEYE SCH ×2 (09:00→17:10)
[2017-08-16] MEDS: BLOOD SUGAR DIAGNOSTIC 1 EACH STRIP IN SCH (09:00)
--- NOTE | 2017-08-16 09:20 | NUR ---
ms rn due meds given,via gtube feeding, tolerated well, w/o residual. held insulin at this tie, bs - 97.
[2017-08-16] MEDS: PROSOURCE / PROSTAT (PYXIS) 30 ML UDC GT SCH (10:00)
[2017-08-16] MEDS: LEVETIRACETAM SOL (5 ML) 100 MG/ML UDC GT SCH (10:00)
[2017-08-16] MEDS: DAKINS QUARTER STRENGTH (0.125%) 480 ML BOTTLE TOP SCH ×2 (10:00→15:33)
[2017-08-16] MEDS: ASCORBIC ACID 500 MG TABLET GT SCH (10:01)
[2017-08-16] MEDS: MEMANTINE HCL 5 MG TABLET GT SCH ×2 (10:01→17:02)
[2017-08-16] MEDS: METOPROLOL TARTRATE 25 MG TABLET GT SCH ×2 (10:02→16:56)
[2017-08-16] MEDS: MULTIVIT, IRON, MIN NO. 8, FA 1 TAB GT SCH (10:02)
[2017-08-16] MEDS: AMIODARONE HCL 200 MG TABLET GT SCH (10:02)
[2017-08-16] MEDS: PANTOPRAZOLE 40 MG/PACK PACK NG SCH (10:03)
[2017-08-16] MEDS: FERROUS SULFATE UDC 300 MG/5 ML UDC GT SCH ×3 (10:08→17:02)
--- NOTE | 2017-08-16 14:00 | NUR ---
ms rn on bed, no change of condition, for discharge after blood transfusion.
[2017-08-16] MEDS: Z GUARD REMEDY 2 OZ OINT TP SCH (15:32)
[2017-08-16] MEDS: SILVER NITRATE APPLICATOR 1 EA BOX TP SCH (15:35)
[2017-08-16] MEDS: VANCOMYCIN 0.75 GM in IV D5W 250 ML IV SCH (17:03)
--- NOTE | 2017-08-16 17:20 | NUR ---
ms rn blood transfusion done, ready to be discharge, waiting for transportation.
--- NOTE | 2017-08-16 19:30 | NUR ---
SEWING DEPARTMENT SUPERVISOR NOTES RECEIVED REPORT FROM PREVIOUS SHIFT. PATIENT TO BE DISCHARGED TO [facility]. PATIENT RECEIVED RESTING INSIDE ROOM, SLEEPING, CONNECTED TO VENTILATOR VIA TRACH, BREATHING EVEN AND UNLABORED. NO SOB OR CONGESTION NOTED. NO FACIAL GRIMACE NOTED. IV SITE ON GET MIDLINE PATENT AND INTACT. WILL CONTINUE TO MONITOR. MAINTAINED ASPIRATION PRECAUTION, MAINTAINED HEAD ELEVATION. BED LOCKED AND IN LOW POSITION, BILATERAL UPPER SIDE RAILS UP AND LOCKED. CALL LIGHT WITHIN EASY REACH
--- NOTE | 2017-08-16 20:00 | NUR ---
BASEBALL GLOVE STUFFER NOTES TRANSPORTATION PRESENT AT UNIT. REPORT GIVEN TO AMBULNZ UNIT 215
== END 2017-08-16 20:20 | DRG 853 ==
LOC: ER 13:09 → TELE 15:46
PROVIDERS: ADMIT Internal Medicine Nephrology; ATTEND Internal Medicine Nephrology
PROC: 5A1955Z Respiratory Ventilation, Greater than 96 Consecutive Hours (ICD-10-PCS; principal; 2017-08-07)
PROC: 05H533Z Insertion of Infusion Device into Right Subclavian Vein, Percutaneous Approach (ICD-10-PCS; 2017-08-09)
PROC: 0KBP0ZZ Excision of Left Hip Muscle, Open Approach (ICD-10-PCS; 2017-08-10)
PROC: 0KBN0ZZ Excision of Right Hip Muscle, Open Approach (ICD-10-PCS; 2017-08-10)
PROC: 0JBQ0ZZ Excision of Right Foot Subcutaneous Tissue and Fascia, Open Approach (ICD-10-PCS; 2017-08-10)
PROC: 0W9B3ZZ Drainage of Left Pleural Cavity, Percutaneous Approach (ICD-10-PCS; 2017-08-11)
PROC: 30233N1 Transfusion of Nonautologous Red Blood Cells into Peripheral Vein, Percutaneous Approach (ICD-10-PCS; 2017-08-16)
DX: A41.9 Sepsis, unspecified organism (principal); J18.9 Pneumonia, unspecified organism; J90 Pleural effusion, not elsewhere classified; G93.40 Encephalopathy, unspecified; L89.214 Pressure ulcer of right hip, stage 4; Z99.11 Dependence on respirator [ventilator] status; J96.11 Chronic respiratory failure with hypoxia; L89.224 Pressure ulcer of left hip, stage 4; R53.2 Functional quadriplegia; L89.613 Pressure ulcer of right heel, stage 3; I42.9 Cardiomyopathy, unspecified; E87.1 Hypo-osmolality and hyponatremia; E11.22 Type 2 diabetes mellitus with diabetic chronic kidney disease; Z93.0 Tracheostomy status; Z93.1 Gastrostomy status; Z79.899 Other long term (current) drug therapy; G30.9 Alzheimer's disease, unspecified; K21.9 Gastro-esophageal reflux disease without esophagitis; R13.10 Dysphagia, unspecified; G40.909 Epilepsy, unspecified, not intractable, without status epilepticus; F09 Unspecified mental disorder due to known physiological condition; Z88.0 Allergy status to penicillin; Z79.4 Long term (current) use of insulin; D64.9 Anemia, unspecified; F02.80 Dementia in other diseases classified elsewhere, unspecified severity, without behavioral disturbance, psychotic disturbance, mood disturbance, and anxiety; I10 Essential (primary) hypertension
CPT/HCPCS: 31720; 36415; 36569; 36600; 71045-TC; 76942-TC; 80048-TC; 80053-TC; 80076-TC; 80202-TC; 82962-TC; 83605-TC; 83735-TC; 84100-TC; 84484-TC; 85025-TC; 85730-TC; 86850-TC; 86921-TC; 87040-TC; 87081-TC; 94002; 94002-TC; 94003-TC; 94760-TC; 94762-TC; 99082-TC; A4216; A4217; A4606; A4623; A6248; A6253; A6402; A6403; A9563; J1815; J1953; J1956; J2185; J3370; J3475; J3490; J7030; J7050; J7060; P9016-BL; Z7610

== ENCOUNTER 2017-08-22 15:37 | Inpatient (IN) | payer MEDICARE, MEDICAID ==
[~2017-08-22] VITALS: Ht 182.9 cm; Wt 106.7 kg
[~2017-08-22 15:37] MED LIST changes: +FERR220S2 GT; +INSU100V3 SQ; -SACC250C GT
--- NOTE | 2017-08-22 15:45 | NUR ---
BB PRIVATE EMS FROM [facility] FOR PERSISTENT FEVER AND RIGHT HIP WOUND INFECTION. PATIENT IS VENT/TRACH DEPENDENT. A/OX 1. NO SOB, NAD, VITALS STABLE. SAFETY AND COMFORT MEASURES IN PLACE. AWAITING MD ORDERS.
--- NOTE | 2017-08-22 15:55 | NUR ---
PT. PLACED INTO [facility] VENT VIA TRACH SIZE #8 PORTEX WITH PARAMETERS BELLOW PER RT TRANSPORTER: AC 16 VT 550 FIO2 40% PEEP +5 BREATH SOUNDS BILATERAL WHEEZING. ANNA@BEDSIDE. Addendum: 08/22/17 at 1651 by ALTON YODER RT Amended: Links added.
--- NOTE | 2017-08-22 16:02 | NUR ---
FIO2 INCREASED FROM 40% TO 60% DUE TO 87% SATURATION. Addendum: 08/22/17 at 1603 by ALTON YODER RT Amended: Links added.
--- NOTE | 2017-08-22 16:19 | NUR ---
BAXTER CATHETER REPLACED USING STERILE PROCEDURE, NEW 16FR CATHETER INSERTED, 0ML OUTPUT AT THIS TIME.
--- NOTE | 2017-08-22 17:15 | NUR ---
PER JORGE ARVIZU TO INSERT MIDLINE. MIDLINE NURSE INFORMED.
--- NOTE | 2017-08-22 17:29 | NUR ---
URINE OBTAINED AND SENT TO LAB. WOUND CULTURES ALSO OBTAINED AND SENT TO LAB.
--- NOTE | 2017-08-22 17:30 | NUR ---
MIDLINE NURSE AT BEDSIDE FOR MIDLINE INSERTION.
--- NOTE | 2017-08-22 17:57 | NUR ---
MIDLINE INSERTED PER MD ORDERS, BLOOD DRAWN AND SENT TO LAB. Addendum: 08/22/17 at 1800 by AUREA 20G MIDLINE ON LEFT UPPER ARM.
[2017-08-22 18:00] LABS: ABG BASE EXCESS 11.4 mmol/L; ABG OXYGEN SATURATION 98.6 % (92.0-98.5); ABG PH 7.457 (7.350-7.450); ABG PO2 150.4 mmHg (75.0-100.0); AaDO2 219.1 mmHg; COHb 0.5 % (0.5-1.5); MetHb 0.7 % (0.0-1.5); O2Hb 97.4 % (94.0-97.0); PEEP,BG 5 cm H2O; SITE, ABG Left Radial; VT, ABG 550 mL
[2017-08-22 18:13] LABS: BASOPHILS # (AUTO) 0.1 /CMM (0.0-0.2); BASOPHILS % (AUTO) 0.6 % (0.0-2.0); EOSINOPHILS # (AUTO) 1.6 /CMM (0.0-0.7); EOSINOPHILS % (AUTO) 12.5 % (0.0-6.0); HEMATOCRIT 22 % (39-51); HEMOGLOBIN 7.5 g/dL (13.5-17.5); LYMPHOCYTES # (AUTO) 2.7 /CMM (0.8-4.8); LYMPHOCYTES % (AUTO) 21.1 % (20.0-44.0); MEAN CORPUSCULAR HEMOGLOBIN 30 PG (26.0-33.0); MEAN CORPUSCULAR HGB CONC 34 g/dl (31.0-36.0); MEAN CORPUSCULAR VOLUME 89 fL (80-96); MONOCYTES # (AUTO) 0.7 /CMM (0.1-1.30); MONOCYTES % (AUTO) 5.1 % (2.0-12.0); NEUTROPHILS # (AUTO) 7.8 /CMM (1.8-8.9); NEUTROPHILS % (AUTO) 60.7 % (43.0-81.0); PLATELET COUNT (AUTO) 338 /CMM (150-450); RDW COEFFICIENT OF VARIATION 18.5 (11.5-15.0); RED BLOOD CELL COUNT(AUTO) 2.48 MIL/uL (4.5-6.0); WHITE BLOOD COUNT (AUTO) 12.9 K/uL (4.3-11.0)
[2017-08-22] MEDS ORDERED: LACT-209 GT (18:14)
[2017-08-22 18:17] LABS: APPEARANCE,URINE SL CLOUDY (CLEAR); BILIRUBIN,URINE NEGATIVE (NEGATIVE); BLOOD, URINE 1+ Ery/uL (NEGATIVE); COLOR,URINE YELLOW (YELLOW); KETONES,URINE NEGATIVE (NEGATIVE); LEUKOCYTE ESTERASE ,URINE 2+ (NEGATIVE); NITRITE, URINE NEGATIVE (NEGATIVE); PH,URINE 7.5 (5.0-8.0); PROTEIN,URINE 2+ mg/dl (NEGATIVE); UGLUCOSE NEGATIVE (NEGATIVE); UROBILINOGEN,URINE 0.2 EU/dL (0.2)
[2017-08-22 18:22] LABS: INR 1.05 (0.85-1.15)
[2017-08-22 18:30] LABS: BACTERIA,URINE Rare /HPF (None Seen); SQUAMOUS EPITHELIAL CELL,UR Rare /HPF (None Seen)
--- NOTE | 2017-08-22 18:35 | NUR ---
DR. DEION NATHAN.
[2017-08-22 18:43] LABS: ALANINE AMINOTRANSFERASE 28 U/L (12-78); ALBUMIN 1.6 g/dL (3.4-5.0); ALKALINE PHOSPHATASE 84 U/L (46-116); ASPARTATE AMINOTRANSFERASE 40 U/L (15-37); BILIRUBIN,DIRECT 0.1 mg/dL (0.0-0.2); BILIRUBIN,TOTAL 0.3 mg/dL (0.2-1.0); CALCIUM, SERUM 7.8 mg/dL (8.5-10.1); CARBON DIOXIDE 35 mmol/L (21-32); CHLORIDE 95 mmol/L (98-107); CREATININE 0.8 mg/dL (0.6-1.3); GLUCOSE 85 mg/dL (74-106); POTASSIUM 4.3 mmol/L (3.5-5.1); SODIUM SERUM 133 mmol/L (136-145); TOTAL PROTEIN, SERUM 6.7 g/dL (6.4-8.2); UREA NITROGEN, BLOOD 30 mg/dL (7-18)
[2017-08-22 18:45] LABS: TROPONIN I < 0.017 ng/mL (0.00-0.056)
--- NOTE | 2017-08-22 18:55 | NUR ---
PER DR VENITA PATEL WITH 40% FIO2
[2017-08-22] MEDS ORDERED: VANCOMYCIN 1 GM in IV D5W 250 ML IV ONE (19:00)
[2017-08-22] MEDS ORDERED: PIPERACILLIN /TAZOBACTAM 3.375 G in IV D5W 50 ML IV ONE (19:00)
[2017-08-22 19:27] VITALS: BP 118/58
--- NOTE | 2017-08-22 19:31 | NUR ---
REPORT GIVEN TO MJ COLVIN FOR JUNI.
--- NOTE | 2017-08-22 19:32 | NUR ---
RECEIVED REPORT FROM VINICIUS CAMEJO FOR JUNI.
--- NOTE | 2017-08-22 19:37 | NUR ---
REPORT GIVEN TO GIOVANNI WILLARD FOR JUNI
--- NOTE | 2017-08-22 20:05 | NUR ---
RT BEDSIDE FOR PT TRANSFER.
[2017-08-22 20:20] VITALS: BP 135/69
--- NOTE | 2017-08-22 20:20 | NUR ---
ENGINEERING DESIGNER ADMITTING NOTES: ADMITTED AN 87 YO MALE PATIENT, ON VENT TO TRACH, WITH THE FF SETTINGS: PORTEX #8, AC: 16, TV: 550, FIO2: 40%, PEEP: 5%. PATIENT IS BEING ADMITTED FOR SEPSIS AND NECROTIC WOUND/ PRESSURE ULCERS AT MIA BUTTOCKS. PATIENT IS NON VERBAL, BUT OPENS EYES SPONTANEOUSLY TO COMMAND. CATHI MIDLINE INTACT AND PATENT TO FLUSH, WITH GOOD BLOOD RETURN. ON DEISY MONITOR: SINUS RHYTHM AT RATE OF 70S. BAXTER CATHETER IN PLACE DRAINING CLEAR YELLOW URINE. ADMITTING CARE DONE. PACKED OPEN ULCERS ON MIA BUTTOCKS. ORDERED FOR WOUND CARE CONSULT. SUCTION SET UP AT BEDSIDE. BED IN LOWEST AND LOCKED POSITION, SIDERAILS UP X 3, ALARMS IN HIGHEST VOLUME. WILL CONT TO MONITOR.
[2017-08-22] MEDS ORDERED: FIBERSOURCE HN 1,000 ML BOTTLE GT PRN (21:30)
[2017-08-22] MEDS ORDERED: POLYVINYL ALCOHOL 15 ML BOTTLE OP PRN (21:30)
[2017-08-22] MEDS: LEVETIRACETAM SOL (5 ML) 100 MG/ML UDC GT SCH (22:26)
[2017-08-22] MEDS: ATORVASTATIN 10 MG TABLET PO SCH (22:26)
--- NOTE | 2017-08-22 23:10 | NUR ---
RN NOTES: PAGED DR ALBARRAN TO QUESTION YANEN ORDER, AWAITING CALL BACK.
--- NOTE | 2017-08-22 23:22 | NUR ---
RN NOTES: RECEIVED CALL FROM DR ALBARRAN, INFORMED HIM THAT PATIENT IS ALLERGIC TO PCN, BUT WITH UNKNOWN SEVERITY. INFORMED HIM OF PREVIOUS IV ATB. MD ORDERED FOR ZOSYN TO BE CHANGED TO MERREM 500 MG IV Q 8 HRS. ALSO ASKED MD FOR DNR ORDER PER POLST SIGNED BY DR ALBARRAN ON 07/27/2017. VERIFIED ORDER FOR DNR. NOTED AND CARRIED OUT.
[2017-08-23] VITALS (7 sets, daily range): BP systolic 96–145; BP diastolic 58–80
[2017-08-23] MEDS ORDERED: PIPERACILLIN /TAZOBACTAM 3.375 G in IV D5W 50 ML IV SCH (01:00)
[2017-08-23] MEDS ORDERED: MEROPENEM 500 MG VIAL IV ONE (01:07)
[2017-08-23] MEDS: MEROPENEM 500 MG in IV NS 0.9% 50 ML IV SCH ×3 (01:09→21:53)
--- NOTE | 2017-08-23 03:20 | NUR ---
RN NOTES: SPOKE TO VINICIUS DYKES (NURSING REMELT OPERATOR OF [facility]) : [phone], TO ASK ABOUT PATIENT'S VACCINES. NO RECORD OF RECENT VACCINATION IN CHART FOR PATIENT PER DONIS, PATIENT HAS BEEN READMITTED MANY TIMES IN THEIR FACILITY, AND THEY ARE ONLY DOING PAPER CHART.
[2017-08-23] MEDS: VANCOMYCIN 0.75 GM in IV D5W 250 ML IV SCH ×2 (06:00→17:59)
[2017-08-23 06:42] LABS: CALCIUM, SERUM 7.6 mg/dL (8.5-10.1); CARBON DIOXIDE 33 mmol/L (21-32); CHLORIDE 94 mmol/L (98-107); CREATININE 0.8 mg/dL (0.6-1.3); GLUCOSE 105 mg/dL (74-106); MAGNESIUM 2.1 mg/dL (1.8-2.4); PHOSPHORUS 3.4 mg/dL (2.5-4.9); POTASSIUM 4.5 mmol/L (3.5-5.1); SODIUM SERUM 131 mmol/L (136-145); UREA NITROGEN, BLOOD 28 mg/dL (7-18)
--- NOTE | 2017-08-23 06:52 | NUR ---
MS RN CLOSING NOTES: PATIENT IN BED, OBTUNDED, ON MECH VENTILATION VIA TRACH WITH THE FF SETTINGS: AC: 16, TV: 550, FIO2: 40%, PEEP: 5, WITH RHONCHI HEARD OVER UPPER LUNG COSBY. BREATHING WITH EVEN EXPANSION. SUCTIONED PRN. ON TELE MONITORING: SR A RATE OF 70S. BAXTER CATHETER IN PLACE DRAINING CLEAR YELLOW URINE. CATHI MIDLINE INTACT AND PATENT TO FLUSH. DUE MEDS GIVEN, PROVIDED FOR COMFORT AND SAFETY. TURNED AND REPOSITIONED Q 2 HRS. FOR WOUND CARE CONSULT. BED IN LOWEST AND LOCKED POSITION, SIDERAILS UP X 3. ENDORSE TO AM RN FOR JUNI.
[2017-08-23] MEDS ORDERED: Z GUARD REMEDY 2 OZ OINT TP PRN (07:00)
[2017-08-23 07:03] LABS: THYROID STIMULATING HORMONE 98.265 uIU/mL (0.358-3.74); URIC ACID 2.7 mg/dL (2.6-7.2)
--- NOTE | 2017-08-23 07:30 | NUR ---
MS RN OPENING NOTES: PATIENT IN BED, OBTUNDED, ON MECH VENTILATION VIA TRACH TOLERATING CURRENT SETTINGS WITH RHONCHI HEARD OVER UPPER LUNG COSBY. BREATHING WITH EVEN EXPANSION. SUCTIONED PRN. ON TELE MONITORING, BAXTER CATHETER IN PLACE DRAINING CLEAR YELLOW URINE. CATHI MIDLINE INTACT AND PATENT TO FLUSH. DUE MEDS GIVEN, PROVIDED FOR COMFORT AND SAFETY. TURNED AND REPOSITIONED Q 2 HRS. FOR WOUND CARE CONSULT. BED IN LOWEST AND LOCKED POSITION, SIDERAILS UP X 3, WILL CONTINUE TO MONITOR
[2017-08-23 08:51] LABS: BASOPHILS % (AUTO) 0.3 % (0.0-2.0); EOSINOPHILS # (AUTO) 1.4 /CMM (0.0-0.7); EOSINOPHILS % (AUTO) 11.6 % (0.0-6.0); HEMATOCRIT 22 % (39-51); HEMOGLOBIN 7.2 g/dL (13.5-17.5); LYMPHOCYTES # (AUTO) 2.1 /CMM (0.8-4.8); MEAN CORPUSCULAR HEMOGLOBIN 29 PG (26.0-33.0); MEAN CORPUSCULAR HGB CONC 32 g/dl (31.0-36.0); MEAN CORPUSCULAR VOLUME 90 fL (80-96); MONOCYTES # (AUTO) 0.6 /CMM (0.1-1.30); MONOCYTES % (AUTO) 4.6 % (2.0-12.0); NEUTROPHILS # (AUTO) 8.2 /CMM (1.8-8.9); NEUTROPHILS % (AUTO) 66.5 % (43.0-81.0); PLATELET COUNT (AUTO) 330 /CMM (150-450); RDW COEFFICIENT OF VARIATION 19.5 (11.5-15.0); RED BLOOD CELL COUNT(AUTO) 2.47 MIL/uL (4.5-6.0); RETICULOCYTE COUNT 3.3 % (0.6-2.5); WHITE BLOOD COUNT (AUTO) 12.4 K/uL (4.3-11.0)
[2017-08-23] MEDS ORDERED: FEE PK DOSING 1 MIN EA MC ONE (08:55)
[2017-08-23] MEDS: MEMANTINE HCL 5 MG TABLET GT SCH ×2 (09:21→17:46)
[2017-08-23] MEDS: AMIODARONE HCL 200 MG TABLET GT SCH (09:22)
[2017-08-23] MEDS: LEVETIRACETAM SOL (5 ML) 100 MG/ML UDC GT SCH ×2 (09:22→21:53)
[2017-08-23] MEDS: PANTOPRAZOLE 40 MG/PACK PACK GT SCH (09:22)
[2017-08-23] MEDS: METOPROLOL TARTRATE 25 MG TABLET GT SCH ×2 (09:22→17:48)
[2017-08-23] MEDS ORDERED: FIBERSOURCE HN 1,000 ML BOTTLE GT PRN (09:30)
[2017-08-23] MEDS ORDERED: FUROSEMIDE 40 MG/4 ML VIAL IV ONE (11:00)
[2017-08-23] MEDS: acetaZOLAMIDE 250 MG TABLET PO SCH (11:52)
[2017-08-23] MEDS: DAKINS QUARTER STRENGTH (0.125%) 480 ML BOTTLE TOP SCH (11:52)
[2017-08-23 12:01] LABS: TROPONIN I < 0.017 ng/mL (0.00-0.056)
[2017-08-23 12:05] LABS: CHOLESTEROL 75 mg/dL (<200); HDL CHOLESTEROL 37 mg/dL (40-60); LDL 27 mg/dL (0-99); TRIGLYCERIDES 117 mg/dL (30-150)
--- NOTE | 2017-08-23 12:39 | NUR ---
WOUND CARE CONSULT WOUND CARE RECEIVED WOUND CONSULT FOR SACRAL, BUL BUTTOCKS, R HEEL DECUBITUS ULCERS. WOUND CARE WILL DEFER CONSULT AND ALL TREATMENT PLANS TO SURGICAL TEAM THEY ARE CURRENTLY FOLLOWING. PATIENT WITH CURRENT HALLIE AT 11, ALL PRESSURE ULCER PREVENTION MEASURES ARE NOTED TO BE IN PLACE AT THIS TIME. PATIENT ON ISOFLEX LOW AIRLOSS SPECIALTY BED.
--- NOTE | 2017-08-23 14:55 | NUR ---
RN NOTES CALLED RESPONSIBLE LIBERTARIANISRAEL FOR CONSENT FOR WOUND DEBRIDEMENT WITH NO ANSWER X2 LEFT MESSAGE WILL CONTINUE TO ATTEMPT AGAIN
[2017-08-23] MEDS: LACTOBACILLUS RHAMNOSUS GG 1 EACH CAP.SPRINK GT SCH (17:46)
--- NOTE | 2017-08-23 18:45 | NUR ---
MS RN CLOSING NOTES: PATIENT IN BED, OBTUNDED, ON MECH VENTILATION VIA TRACH TOLERATING CURRENT SETTINGS WITH RHONCHI HEARD OVER UPPER LUNG COSBY. BREATHING WITH EVEN EXPANSION. SUCTIONED PRN. ON TELE MONITORING, BAXTER CATHETER IN PLACE DRAINING CLEAR YELLOW URINE. CATHI MIDLINE INTACT AND PATENT TO FLUSH. DUE MEDS GIVEN, PROVIDED FOR COMFORT AND SAFETY. TURNED AND REPOSITIONED Q 2 HRS. BED IN LOWEST AND LOCKED POSITION, SIDERAILS UP X 3, WILL CONTINUE TO MONITOR AND ENDORSE TO NEXT SHIFT FOR CONTINUITY OF CARE
--- NOTE | 2017-08-23 19:20 | NUR ---
TELE/RN OPENING NOTES PT RECEIVED RESTING IN BED. OBTUNDED, NON VERBAL. VENT DEPENDENT PORTEX 8, AC=16, AE=106, FIO2=40%, PEEP=5. BREATHING EVEN AND UNLABORED. NO S/S OF SOB OR PAIN NOTED. BAXTER IN PLACE AND DRAINING TO GRAVITY. CATHI MIDLINE PATENT AND INTACT. GT RUNNING FIBERSOURCE AT 70ML/HR WITH NO RESIDUALS NOTED. CALLED RESPONSIBLE GREEN PARTY FAMILIA TO OBTAIN VERBAL CONSENT FOR WOUND DEBRIDEMENT. LEFT VOICEMAIL. AWAITING CALL BACK. CALLED NON-BUSINESS HOURS NUMBER PROVIDED ON VOICEMAIL, NO ANSWER AND NO OPTION TO LEAVE A VOICEMAIL. BED IN LOW/LOCKED POSITION WITH CALL LIGHT IN REACH AND SIDE RAILS UPX2. WILL CONTINUE TO MONITOR
[2017-08-23] MEDS: ATORVASTATIN 10 MG TABLET PO SCH (21:53)
--- NOTE | 2017-08-23 22:27 | NUR ---
TELE/RN NOTES SPOKE TO DR. GONZALEZ REGARDING STANDING ORDER TO TRANSFUSE 1 UNIT OF PRBC IF HGB IS LESS THAN 7.5. INFORMED HER THAT THE PERSON TO NOTIFY HAS NOT RETURNED OUR PHONE CALL FOR CONSENT FOR BLOOD TRANSFUSION AND SERIAL DEBRIDEMENT. OKAY TO HOLD OFF ON BLOOD TRANSFUSION UNTIL TOMORROW. SPECIAL WARFARE COMBATANT CREWMAN MADE AWARE
[2017-08-24] VITALS (13 sets, daily range): BP systolic 124–163; BP diastolic 57–88
[2017-08-24] MEDS: MEROPENEM 500 MG in IV NS 0.9% 50 ML IV SCH ×3 (05:07→20:36)
[2017-08-24] MEDS: VANCOMYCIN 0.75 GM in IV D5W 250 ML IV SCH (06:04)
--- NOTE | 2017-08-24 07:00 | NUR ---
TELE/RN CLOSING NOTES PT OBTUNDED, NON VERBAL. VENT DEPENDENT. ON TELE MONITOR SHOWING SR WITH FIRST DEGREE AV BLOCK AND BBB, HR 69. FIBERSOURCE RUNNING ORDERED. NO RESIDUALS NOTED. CATHI MIDLINE PATENT AND INTACT. BAXTER IN PLACE AND DRAINING TO GRAVITY. STILL AWAITING CALL BACK FROM PT'S RESPONSIBLE CONSTITUTION PARTY FOR VERBAL CONSENT OF LEFT AND RIGHT HIP SERIAL DEBRIDEMENT. WOUND CARE PROVIDED ORDERED. TURNED/REPOSITIONED Q2H. HEELS OFFLOADED AT ALL TIMES. ENDORSED TO DAY SHIFT RN JUNI.
--- NOTE | 2017-08-24 07:31 | NUR ---
WESTERN FELT HAT BLOCKER OPENING NOTES RECEIVED PT LYING COMFORTABLY IN BED IN NO ACUTE SIGNS OF DISTRESS. OBTUNDED, NON-VERBAL BUT OPENING EYES. PT ON TELE-MONITORING WITH CURRENT READING OF SR WITH FIRTS DEGREE AV BLOCK AND HR OF 67. PT IS VENT DEPENDENT, TOLERATING VENT SETTINGS WITH NO SOB NOTED. GTUBE IN PLACE WITH FEEDING OF FIBERSOURCE AT 70ML/HR IN PROGRESS, TOLERATING WELL. ASPIRATION PRECAUTIONS MAINTAINED. CATHI MIDLINE INTACT AND PATENT. BAXTER ACTIVELY DRAINING CLEAR YELLOW URINE TO BEDSIDE URINARY BAG. BED IN LOW AND LOCKED POSITION WITH SIDE-RAILS UP X3 FOR SAFETY. CALL LIGHT WITHIN REACH. WILL CONTINUE TO MONITOR PT ACCORDINGLY.
[2017-08-24] MEDS: FIBERSOURCE HN 1,000 ML BOTTLE GT PRN (07:57)
[2017-08-24] MEDS: LACTOBACILLUS RHAMNOSUS GG 1 EACH CAP.SPRINK GT SCH ×2 (08:14→17:41)
[2017-08-24] MEDS: LEVETIRACETAM SOL (5 ML) 100 MG/ML UDC GT SCH ×2 (08:14→20:33)
[2017-08-24] MEDS: acetaZOLAMIDE 250 MG TABLET PO SCH (08:15)
[2017-08-24] MEDS: MEMANTINE HCL 5 MG TABLET GT SCH ×2 (08:15→17:42)
[2017-08-24] MEDS: METOPROLOL TARTRATE 25 MG TABLET GT SCH ×2 (08:15→17:42)
[2017-08-24] MEDS: AMIODARONE HCL 200 MG TABLET GT SCH (08:16)
[2017-08-24] MEDS: PANTOPRAZOLE 40 MG/PACK PACK GT SCH (08:16)
[2017-08-24] MEDS: PROSOURCE / PROSTAT (PYXIS) 30 ML UDC GT SCH ×3 (08:16→17:42)
[2017-08-24] MEDS: DAKINS QUARTER STRENGTH (0.125%) 480 ML BOTTLE TOP SCH (08:17)
--- NOTE | 2017-08-24 08:29 | NUR ---
RN NOTES CALLED AND OBTAINED TELEPHONE VERBAL CONSENT FROM FAMILIA ADDISON (PT'S CONSERVATOR) FOR LEFT AND RIGHT HIP SERIAL WOUND DEBRIDEMENT AND BLOOD TRANSFUSION FOR PT. CONSENT SIGNED AND CO-SIGNED WITH ANOTHER RN (LINDSAY).
[2017-08-24] MEDS: LEVOTHYROXINE INJ 100 MCG VIAL IV SCH (09:00)
[2017-08-24 09:41] LABS: BASOPHILS % (AUTO) 0.3 % (0.0-2.0); EOSINOPHILS # (AUTO) 1.1 /CMM (0.0-0.7); EOSINOPHILS % (AUTO) 9.9 % (0.0-6.0); HEMATOCRIT 22 % (39-51); HEMOGLOBIN 7.2 g/dL (13.5-17.5); LYMPHOCYTES # (AUTO) 2.4 /CMM (0.8-4.8); LYMPHOCYTES % (AUTO) 22.5 % (20.0-44.0); MEAN CORPUSCULAR HEMOGLOBIN 29 PG (26.0-33.0); MEAN CORPUSCULAR HGB CONC 32 g/dl (31.0-36.0); MEAN CORPUSCULAR VOLUME 91 fL (80-96); MONOCYTES # (AUTO) 0.6 /CMM (0.1-1.30); NEUTROPHILS # (AUTO) 6.5 /CMM (1.8-8.9); NEUTROPHILS % (AUTO) 61.3 % (43.0-81.0); PLATELET COUNT (AUTO) 328 /CMM (150-450); RDW COEFFICIENT OF VARIATION 19.7 (11.5-15.0); RED BLOOD CELL COUNT(AUTO) 2.46 MIL/uL (4.5-6.0); WHITE BLOOD COUNT (AUTO) 10.6 K/uL (4.3-11.0)
[2017-08-24 09:55] LABS: ALANINE AMINOTRANSFERASE 28 U/L (12-78); ALBUMIN 1.7 g/dL (3.4-5.0); ALKALINE PHOSPHATASE 86 U/L (46-116); ASPARTATE AMINOTRANSFERASE 38 U/L (15-37); BILIRUBIN,TOTAL 0.3 mg/dL (0.2-1.0); CALCIUM, SERUM 7.8 mg/dL (8.5-10.1); CARBON DIOXIDE 33 mmol/L (21-32); CHLORIDE 94 mmol/L (98-107); CREATININE 0.9 mg/dL (0.6-1.3); GLUCOSE 111 mg/dL (74-106); MAGNESIUM 2.1 mg/dL (1.8-2.4); PHOSPHORUS 3.4 mg/dL (2.5-4.9); POTASSIUM 4.2 mmol/L (3.5-5.1); SODIUM SERUM 129 mmol/L (136-145); TOTAL PROTEIN, SERUM 7.2 g/dL (6.4-8.2); UREA NITROGEN, BLOOD 29 mg/dL (7-18)
[2017-08-24 10:08] LABS: TROPONIN I < 0.017 ng/mL (0.00-0.056)
[2017-08-24 11:19] LABS: ABG BASE EXCESS 10.2 mmol/L; ABG PCO2 64.6 mmHg (35.0-45.0); ABG PO2 98.3 mmHg (75.0-100.0); AaDO2 112.6 mmHg; COHb 0.7 % (0.5-1.5); MetHb 0.9 % (0.0-1.5); O2Hb 95.4 % (94.0-97.0); SITE, ABG Right Brachial; VENT MODE, BG AC 16 550 +5 40%
--- NOTE | 2017-08-24 14:24 | NUR ---
RN NOTES RECEIVED CALL FROM [facility] THAT PT'S LEFT HIP WOUND IS POSITIVE FOR ENT. FAECALIS -VANCO RESISTANT SLIGHT GROWTH. PROTEUS MIRABILIS RARE GROWTH AND KLEBSIELLA PNEUMONIAE GROWTH FROM SUBCULTURE. PT PLACED ON CONTACT PRECAUTIONS. WILL CONTINUE TO MONITOR.
--- NOTE | 2017-08-24 15:16 | NUR ---
RN NOTES PATIENT WITH HGB OF 7.2 TODAY, BLOOD TRANSFUSION 1 BAG PRBC STARTED AT 1500H WITH PRE B/P V/S OF BP 124/69, R 18, P 64, T 97.8F AND SP02 100%. PT WITH NO ADVERSE REACTIONS NOTED AFTER 15 MINUTES OF BLOOD TRANSFUSION, REMAINS AFEBRILE, NO RASHES AND NO SOB NOTED. WILL CONTINUE TO MONITOR
[2017-08-24] MEDS: IPRATROPIUM NEB FS 0.5 MG/2.5 ML AMPUL.NEB NEB SCH ×3 (16:02→23:45)
[2017-08-24] MEDS ORDERED: ALBUTEROL HALF STRENGTH 1.25 MG/3 ML VIAL.NEB NEB SCH (17:00)
[2017-08-24] MEDS: methylPREDNISolone SOD SUCC 125 MG/2ML VIAL IV SCH (17:42)
--- NOTE | 2017-08-24 18:28 | NUR ---
RN NOTES BLOOD TRANSFUSION OF 1 BAG PRBC 306ML COMPLETED WITH NO ADVERSE REACTIONS NOTED THROUGHOUT THE INFUSION. POST V/S; BP 141/83, R 18, P 66, T 97.8F AND SP02 100%. WILL CONTINUE TO MONITOR.
--- NOTE | 2017-08-24 19:04 | NUR ---
RAIL SWITCHMAN CLOSING NOTES PT IN BED COMFORTABLY LYING AT MODERATE HIGH BACKREST. OBTUNDED AND NON-VERBAL WITH EYES OPEN ON AND OFF. PT ON TELE-MONITORING WITH CURRENT READING OF SR WITH FIRTS DEGREE AV BLOCK AND HR OF 66. PT IS VENT DEPENDENT, TOLERATING VENT SETTINGS WITH NO SOB NOTED. G-TUBE IN PLACE WITH FEEDING OF FIBERSOURCE @ 70ML/HR IN PROGRESS, TOLERATING WELL. ASPIRATION PRECAUTIONS MAINTAINED. CATHI MIDLINE INTACT AND PATENT. BAXTER ACTIVELY DRAINING CLEAR YELLOW URINE TO BEDSIDE URINARY BAG. HOB KEPT ELEVATED. BED IN LOW AND LOCKED POSITION WITH SIDE-RAILS UP X3 FOR SAFETY. CALL LIGHT WITHIN REACH. ALL NEEDS AND CARE PROVIDED WELL. WILL ENDORSED TO MARINE DRAFTER NURSE FOR JUNI. .
--- NOTE | 2017-08-24 19:30 | NUR ---
PRODUCTION CONTROL TECHNOLOGIST OPENING NOTES: PATIENT IN BED, OBTUNDED, [facility] THE FF SETTINGS: AC: 16, TV: 550, FIO2: 40%, PEEP: 5. BREATHING WITH EVEN EXPANSION. RHONCHI HEARD UPON AUSCULTATION. SUCTIONED PRN. ON TELE MONITORING: SINUS RHYTHM WITH 1ST DEG AVB RATE OF 60S. PATIENT HAS FEEDING OF FIBERSOURCE THROUGH GTUBE RUNNING AT 70 ML/HR, INFUSING WELL. MAINTAINED HOB ELEVATED. BAXTER CATHETER IN PLACE DRAINING CLEAR/ PALE YELLOW URINE. PROVIDED FOR COMFORT AND SAFETY. BED IN LOWEST AND LOCKED POSITION, CLINICAL ALRMS AT HIGHEST SETTINGS. WILL CONT TO MONITOR.
[2017-08-24] MEDS: ATORVASTATIN 10 MG TABLET PO SCH (21:32)
[2017-08-24] MEDS: LINEZOLID RTU BAG 600 MG in PREMIX 1 EA IV SCH (21:32)
[2017-08-24] MEDS: ALBUTEROL HALF STRENGTH 1.25 MG/3 ML VIAL.NEB NEB SCH (23:46)
[2017-08-25] VITALS: BP 113/65
[2017-08-25] MEDS: ALBUTEROL HALF STRENGTH 1.25 MG/3 ML VIAL.NEB NEB SCH ×6 (03:09→23:18)
[2017-08-25] MEDS: IPRATROPIUM NEB FS 0.5 MG/2.5 ML AMPUL.NEB NEB SCH ×6 (03:09→23:18)
[2017-08-25 03:55] VITALS: BP 122/69
[2017-08-25] MEDS: MEROPENEM 500 MG in IV NS 0.9% 50 ML IV SCH ×3 (05:18→20:11)
--- NOTE | 2017-08-25 07:30 | NUR ---
[employer] TRAINER CLOSING NOTES: PATIENT IN BED, OBTUNDED, [facility] FF SETT[facility]: AC: 16, TV: 550. FIO2: 40%, PEEP 5. BREATHING WITH EVEN EXPANSION. SUCTIONED PRN. MAINTAINED HOB ELEVATED. ON TELE MONITORING: SR WITH 1ST DEG AVB AT RATE OF 70S. BAXTER CATHETER IN PLACE DRAINING CLEAR YELLOW URINE. DUE MEDS GIVEN. PROVIDED FOR COMFORT AND SAFETY. WOUND TREATMENT DONE. MORNING CARE RENDERED. TURNED AND REPOSITIONED Q2 HRS. BED IN LOWEST NAD LOCKED POSITION, SIDERAILS UP X 3, HEIDY LIGHT WITHIN REACH. ENDORSED TO AM RNDARRON, FOR JUNI.
--- NOTE | 2017-08-25 07:40 | NUR ---
[employer]EV[employer] AND APPEALS SPECIALIST OPENING NOTES RECEIVED PT IN BED LYING @ SEMI-RUBY'S POSITION IN NO ACUTE SIGNS OF DISTRESS. OBTUNDED AND NON-VERBAL. TELE-MONITORING WITH CURRENT READING OF SR WITH FIRTS DEGREE AVB AND HR ON THE 60'S. PT IS VENT DEPENDENT AT PRESCRIBED PARAMETERS, TOLERATING VENT SETTINGS WITH NO SOB NOTED. G-TUBE IN PLACE WITH FEEDING OF FIBERSOURCE @ 70ML/HR IN PROGRESS, TOLERATING WELL. ASPIRATION PRECAUTIONS MAINTAINED. CATHI MIDLINE INTACT AND PATENT. IFC ACTIVELY DRAINING CLEAR YELLOW URINE TO BEDSIDE URINARY BAG. BED IN LOW AND LOCKED POSITION WITH SIDE-RAILS UP X3 FOR SAFETY. CALL LIGHT WITHIN REACH. WILL CONTINUE TO MONITOR PT ACCORDINGLY.
[2017-08-25] MEDS: LEVOTHYROXINE INJ 100 MCG VIAL IV SCH (07:57)
[2017-08-25 08:00] VITALS: BP 144/81
[2017-08-25] MEDS: LEVETIRACETAM SOL (5 ML) 100 MG/ML UDC GT SCH ×2 (08:56→20:11)
[2017-08-25] MEDS: PANTOPRAZOLE 40 MG/PACK PACK GT SCH (08:56)
[2017-08-25] MEDS: PROSOURCE / PROSTAT (PYXIS) 30 ML UDC GT SCH ×3 (08:56→16:56)
[2017-08-25] MEDS: MEMANTINE HCL 5 MG TABLET GT SCH ×2 (08:56→17:41)
[2017-08-25] MEDS: LACTOBACILLUS RHAMNOSUS GG 1 EACH CAP.SPRINK GT SCH ×2 (08:56→16:57)
[2017-08-25] MEDS: methylPREDNISolone SOD SUCC 125 MG/2ML VIAL IV SCH ×2 (08:57→16:57)
[2017-08-25] MEDS: AMIODARONE HCL 200 MG TABLET GT SCH (08:57)
[2017-08-25] MEDS: METOPROLOL TARTRATE 25 MG TABLET GT SCH ×2 (08:57→16:58)
[2017-08-25] MEDS: DAKINS QUARTER STRENGTH (0.125%) 480 ML BOTTLE TOP SCH (08:58)
[2017-08-25] MEDS: LINEZOLID RTU BAG 600 MG in PREMIX 1 EA IV SCH ×2 (08:58→21:35)
[2017-08-25] MEDS: FIBERSOURCE HN 1,000 ML BOTTLE GT PRN (08:58)
[2017-08-25 12:15] LABS: BASOPHILS % (AUTO) 0.2 % (0.0-2.0); HEMATOCRIT 23 % (39-51); HEMOGLOBIN 7.7 g/dL (13.5-17.5); LYMPHOCYTES # (AUTO) 0.8 /CMM (0.8-4.8); LYMPHOCYTES % (AUTO) 8.8 % (20.0-44.0); MEAN CORPUSCULAR HEMOGLOBIN 30 PG (26.0-33.0); MEAN CORPUSCULAR HGB CONC 33 g/dl (31.0-36.0); MEAN CORPUSCULAR VOLUME 90 fL (80-96); MONOCYTES # (AUTO) 0.1 /CMM (0.1-1.30); MONOCYTES % (AUTO) 0.8 % (2.0-12.0); NEUTROPHILS # (AUTO) 8.6 /CMM (1.8-8.9); NEUTROPHILS % (AUTO) 90.2 % (43.0-81.0); PLATELET COUNT (AUTO) 303 /CMM (150-450); RDW COEFFICIENT OF VARIATION 18.9 (11.5-15.0); RED BLOOD CELL COUNT(AUTO) 2.55 MIL/uL (4.5-6.0); WHITE BLOOD COUNT (AUTO) 9.6 K/uL (4.3-11.0)
[2017-08-25 13:29] LABS: ALANINE AMINOTRANSFERASE 26 U/L (12-78); ALBUMIN 1.5 g/dL (3.4-5.0); ALKALINE PHOSPHATASE 76 U/L (46-116); ASPARTATE AMINOTRANSFERASE 37 U/L (15-37); BILIRUBIN,TOTAL 0.3 mg/dL (0.2-1.0); CALCIUM, SERUM 7.9 mg/dL (8.5-10.1); CARBON DIOXIDE 26 mmol/L (21-32); CHLORIDE 94 mmol/L (98-107); CREATININE 0.8 mg/dL (0.6-1.3); GLUCOSE 160 mg/dL (74-106); PHOSPHORUS 3.2 mg/dL (2.5-4.9); SODIUM SERUM 129 mmol/L (136-145); TOTAL PROTEIN, SERUM 6.7 g/dL (6.4-8.2); UREA NITROGEN, BLOOD 28 mg/dL (7-18)
[2017-08-25 16:00] VITALS: BP 120/65
--- NOTE | 2017-08-25 18:37 | NUR ---
EXERCISE TEACHER CLOSING NOTES PT COMFORTABLY LYING @ MODERATE HIGH BACKREST IN BED. OBTUNDED AND NON-VERBAL. PT ON TELE-MONITORING WITH CURRENT READING OF SR WITH FIRTS DEGREE AV BLOCK AND HR ON THE 60'S. PT IS VENT DEPENDENT AT PRESCRIBED PARAMETERS, TOLERATING VENT SETTINGS WITH NO ACUTE RESPIRATORY DISTRESS NOTED. G-TUBE IN PLACE WITH FEEDING OF FIBERSOURCE @ 70ML/HR IN PROGRESS, TOLERATING WELL. ASPIRATION PRECAUTIONS MAINTAINED. CATHI MIDLINE INTACT AND PATENT. BAXTER ACTIVELY DRAINING CLEAR YELLOW URINE TO BEDSIDE URINARY BAG. TURNED AND REPOSITIONED @ 2HRS AND PRN. BLE OFFLOADED WITH PILLOWS. HOB KEPT ELEVATED. BED IN LOW AND LOCKED POSITION WITH SIDE-RAILS UP X3 FOR SAFETY. CALL LIGHT WITHIN REACH. ALL NEEDS AND CARE PROVIDED WELL. WILL ENDORSED TO COURT BAILIFF OR SHERIFF NURSE FOR JUNI. .
--- NOTE | 2017-08-25 19:30 | NUR ---
FILEMAKER DEVELOPER OPENING NOTES: PATIENT IN BED, OBTUNDED, ON MECH VENTILATION VIA TRACH WITH THE FF SETTINGS: AC:16, TV: 550, FIO2: 40%, PEEP: 5. BREATHING EVEN AND UNLABORED, WITH RHONCHI HEARD BILATERALLY OVER UPPER LUNG COSBY. SUCTIONED PRN. 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 GTUBE IN PLACE WITH FEEDING OF FIBERSOURCE RUNNING AT 70 ML/HR. PATIENT TOLERATING FEEDING WELL. MAINTAINED HOB ELEVATED. BAXTER CATHETER IN PLACE DRAINING CLEAR YELLOW URINE. CATHI MIDLINE INTACT AND PATENT TO FLUSH, WITH GOOD BLOOD RETURN. PROVIDED FOR COMFORT AND SAFETY. BED IN LOWEST AND LOCKED POSITION, SIDERAILS UP X 3, CLINICAL ALARMS AT HIGHEST LEVEL. WILL CONT TO MONITOR.
[2017-08-25 20:00] VITALS: BP 112/60
[2017-08-25] MEDS: LORAZEPAM INJ 2 MG/ML VIAL IVP PRN (23:24)
--- NOTE | 2017-08-25 23:29 | NUR ---
RN NOTES: PATIENT APPEARS RESTLESS AND AGITATED. VENT ALARMS CHECKED AND ASSESSED WITH RT. ATIVAN 1 MG SLOW IVP GIVEN AT THIS TIME. WILL CONT TO MONITOR.
[2017-08-26] VITALS: BP 103/51
[2017-08-26] MEDS: FIBERSOURCE HN 1,000 ML BOTTLE GT PRN ×2 (01:41→18:11)
[2017-08-26] MEDS: IPRATROPIUM NEB FS 0.5 MG/2.5 ML AMPUL.NEB NEB SCH ×6 (03:35→23:51)
[2017-08-26] MEDS: ALBUTEROL HALF STRENGTH 1.25 MG/3 ML VIAL.NEB NEB SCH ×6 (03:35→23:51)
--- NOTE | 2017-08-26 03:58 | NUR ---
RT NOTE RCVD PT ON VENT WITH NOTED SETTINGS. VENT PLUGGED INTO RED OUTLET, VENT ALARM WORKING AND AUDIBLE, AMBU BAG AT BEDSIDE. SUCTIONED MODERATE PALE YELLOW THICK SECRETIONS .WILL CONTINUE TO MONITOR THE PT.
[2017-08-26 04:00] VITALS: BP 138/80
[2017-08-26] MEDS: MEROPENEM 500 MG in IV NS 0.9% 50 ML IV SCH ×3 (04:56→20:29)
[2017-08-26 06:37] LABS: CALCIUM, SERUM 7.8 mg/dL (8.5-10.1); CARBON DIOXIDE 30 mmol/L (21-32); CHLORIDE 95 mmol/L (98-107); CREATININE 0.9 mg/dL (0.6-1.3); GLUCOSE 132 mg/dL (74-106); SODIUM SERUM 132 mmol/L (136-145); UREA NITROGEN, BLOOD 33 mg/dL (7-18)
[2017-08-26 06:42] LABS: BASOPHILS % (AUTO) 0.1 % (0.0-2.0); HEMATOCRIT 26 % (39-51); HEMOGLOBIN 8.4 g/dL (13.5-17.5); LYMPHOCYTES # (AUTO) 1.3 /CMM (0.8-4.8); LYMPHOCYTES % (AUTO) 11.3 % (20.0-44.0); MEAN CORPUSCULAR HEMOGLOBIN 30 PG (26.0-33.0); MEAN CORPUSCULAR HGB CONC 33 g/dl (31.0-36.0); MEAN CORPUSCULAR VOLUME 93 fL (80-96); MONOCYTES # (AUTO) 0.4 /CMM (0.1-1.30); MONOCYTES % (AUTO) 3.2 % (2.0-12.0); NEUTROPHILS # (AUTO) 9.8 /CMM (1.8-8.9); NEUTROPHILS % (AUTO) 85.4 % (43.0-81.0); PLATELET COUNT (AUTO) 338 /CMM (150-450); RED BLOOD CELL COUNT(AUTO) 2.79 MIL/uL (4.5-6.0); WHITE BLOOD COUNT (AUTO) 11.5 K/uL (4.3-11.0)
--- NOTE | 2017-08-26 06:49 | NUR ---
TROLLEY OPERATOR CLOSING NOTES: PATIENT IN BED, OBTUNDED, ON MECH VENTILATION VIA TRACH WITH THE FF SETTINGS: AC:16, TV: 550, FIO2: 40%, PEEP: 5. SUCTIONED PRN. 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 GTUBE IN PLACE WITH FEEDING OF FIBERSOURCE RUNNING AT 70 ML/HR, WAS ABLE TO TOLERATE FEEDING WELL. MAINTAINED HOB ELEVATED. BAXTER CATHETER IN PLACE DRAINING CLEAR YELLOW URINE. NO ACUTE CHANGE IN CONDITION NOTED THROUGH SHIFT. WOUND TREATMENT DONE OVER MIA HIPS ST 4 ULCERS, SACR[address] ST 3 ULCERS AND MIA HEELS. PROVIDED FOR COMFORT AND SAFETY. BED IN LOWEST AND LOCKED POSITION, SIDERAILS UP X 3, WILL ENDORSE TO AM RN FOR JUNI.
[2017-08-26 07:01] VITALS: BP 123/58
--- NOTE | 2017-08-26 07:50 | NUR ---
TELE/RN OPENING NOTE PATIENT IN BED IN STABLE CONDITION. NON VERBAL, A/O X 1. TRACH AND VENT DEPENDENT. NO SIGNS OF ACUTE DISTRESS. NO COMPLAIN OF PAIN OR DISCOMFORT. ON G TUBE FEEDING FIBERSOURCE AT 70ML/HR. TOLERATING WELL. ALL NEEDS ATTENDED TO. CALL LIGHT WITHIN REACH. WILL CONTINUE TO MONITOR TO ENSURE SAFETY.
[2017-08-26] MEDS: DAKINS QUARTER STRENGTH (0.125%) 480 ML BOTTLE TOP SCH (09:00)
[2017-08-26] MEDS: AMIODARONE HCL 200 MG TABLET GT SCH (09:01)
[2017-08-26] MEDS: PROSOURCE / PROSTAT (PYXIS) 30 ML UDC GT SCH ×3 (09:01→17:05)
[2017-08-26] MEDS: LINEZOLID RTU BAG 600 MG in PREMIX 1 EA IV SCH ×2 (09:01→21:44)
[2017-08-26] MEDS: LEVETIRACETAM SOL (5 ML) 100 MG/ML UDC GT SCH ×2 (09:01→20:29)
[2017-08-26] MEDS: PANTOPRAZOLE 40 MG/PACK PACK GT SCH (09:01)
[2017-08-26] MEDS: LORAZEPAM INJ 2 MG/ML VIAL IVP PRN (09:01)
[2017-08-26] MEDS: MEMANTINE HCL 5 MG TABLET GT SCH ×2 (09:01→17:05)
[2017-08-26] MEDS: METOPROLOL TARTRATE 25 MG TABLET GT SCH ×2 (09:02→17:05)
[2017-08-26] MEDS: LEVOTHYROXINE SODIUM 50 MCG TABLET PO SCH (09:02)
[2017-08-26] MEDS: LACTOBACILLUS RHAMNOSUS GG 1 EACH CAP.SPRINK GT SCH ×2 (09:02→17:05)
[2017-08-26] MEDS: methylPREDNISolone SOD SUCC 125 MG/2ML VIAL IV SCH (09:02)
[2017-08-26] MEDS: GENTAMICIN 0.1% CREAM 15 GM TUBE TP SCH ×3 (11:32→17:05)
[2017-08-26 16:00] VITALS: BP_SYST 100; BP_SYST 122; BP_DIAS 57; BP_DIAS 63
--- NOTE | 2017-08-26 18:31 | NUR ---
TELE/RN CLOSING NOTE PATIENT IN BED IN STABLE CONDITION. A/O X 1, NON VERBAL. ON TRACH AND VENT DEPENDENT. TOLERATING WELL. NO SIGNS OF ACUTE DISTRESS. NO COMPLAIN OF PAIN OR DISCOMFORT. ON G TUBE FEEDING FIBERSOURCE 70 ML/HR. TOLERATING WELL. HOB ELEVATED FOR ASPIRATION PRECAUTION . TOLERATING WELL. ALL NEEDS ATTENDED TO. CALL LIGHT WITHIN REACH. WILL ENDORSE TO NEXT SHIFT FOR CONTINUITY OF CARE.
--- NOTE | 2017-08-26 19:30 | NUR ---
COPPER MINER BLASTING OPENING NOTES: PATIENT IN BED, OBTUNDED, ON MECH VENTILATION WITH THE FF SETTINGS: AC: 16, TV: 550, FIO2: 40%, PEEP: 5. BREATHING EVEN AND UNLABORED, APPEARS CALM AND IN NO DISTRSS. MAINTAINED HOB ELEVATED. 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 GTUBE FEEDING OF FIBERSOURCE RUNNING AT 70 ML., PATIENT TOLERATING WELL. BAXTER CATHETER IN PLACE DRAINING CLEAR YELLOW URINE. PROVIDED FOR COMFORT AND SAFETY. BED IN LOWEST AND LOCKED POSITION, SIDERAILS UP X 3, CLINICAL ALARMS AT HIGHEST LEVEL. WILL CONT TO MONITOR.
[2017-08-26 20:00] VITALS: BP 133/70
--- NOTE | 2017-08-26 22:21 | NUR ---
Patient on mechanical vent AC16,500,40%,+5 as per MD order. Breath sounds equal bilateral. Breathing tx given as ordered and tolerated well. No adverse reactions noted. Ambu bag at the bed side. Suctioned patient's airways as needed.
[2017-08-27] VITALS: BP 141/64
[2017-08-27] MEDS: ALBUTEROL HALF STRENGTH 1.25 MG/3 ML VIAL.NEB NEB SCH ×6 (01:59→23:56)
[2017-08-27] MEDS: IPRATROPIUM NEB FS 0.5 MG/2.5 ML AMPUL.NEB NEB SCH ×6 (01:59→23:56)
[2017-08-27 04:00] VITALS: BP 150/79
[2017-08-27] MEDS: MEROPENEM 500 MG in IV NS 0.9% 50 ML IV SCH ×3 (04:36→20:21)
--- NOTE | 2017-08-27 06:28 | NUR ---
SURGICAL CLINICAL REVIEWER CLOSING NOTES: PATIENT IN BED, OBTUNDED, ON MECH VENTILATION VIA TRACH. BREATHING EVEN AND UNLABORED, NOTED WITH MODERATE THICK YELLOWISH SECRETIONS, SUCTIONED PRN. ON TELE MONITORING: SR WITH 1ST DEG AVB, AT RATE OF 60S. GTUBE FEEDING OF FIBERSOURCE RUNNING AT 70 ML/HR, PATIENT ABLE TO TOLERATE WELL, WITH MINIMAL RESIDUALS. CATHI MIDLINE INTACT AND PATENT, WITH GOOD BLOOD RETURN. BAXTER CATHETER IN PLACE DRAINING CLEAR YELLOW URINE. PROVIDED FOR COMFORT AND SAFETY. MORNING CARE RENDERED. WOUND TREATMENT DONE ORDERED. DUE MEDS GIVEN. BED IN LOWEST AND LOCKED POSITION, SIDERAILS UP X 3, CLINICAL ALARMS AT HIGHEST LEVELS. WILL ENDORSE TO AM RN FOR JUIN.
--- NOTE | 2017-08-27 07:38 | NUR ---
TELE/RN OPENING NOTE PATIENT IN BED IN STABLE CONDITION. A/O X 1, NON VERBAL. TRACH AND VENT DEPENDENT TOLERATING WELL. NO SIGNS OF ACUTE DISTRESS. NO COMPLAIN OF PAIN OR DISCOMFORT. ON TELE MONITOR WITH SINUS RHYTHM IN 70'S. ON G TUBE FEEDING FIBERSOURCE AT 70ML/HR. TOLERATING WELL. ALL NEEDS ATTENDED TO. CALL LIGHT WITHIN REACH. WILL CONTINUE TO MONITOR TO ENSURE SAFETY.
[2017-08-27 08:00] VITALS: BP 146/68
[2017-08-27] MEDS: LEVETIRACETAM SOL (5 ML) 100 MG/ML UDC GT SCH ×2 (08:43→20:21)
[2017-08-27] MEDS: PROSOURCE / PROSTAT (PYXIS) 30 ML UDC GT SCH ×3 (08:43→16:59)
[2017-08-27] MEDS: DAKINS QUARTER STRENGTH (0.125%) 480 ML BOTTLE TOP SCH (08:43)
[2017-08-27] MEDS: LINEZOLID RTU BAG 600 MG in PREMIX 1 EA IV SCH ×2 (08:43→21:03)
[2017-08-27] MEDS: MEMANTINE HCL 5 MG TABLET GT SCH ×2 (08:44→16:43)
[2017-08-27] MEDS: LACTOBACILLUS RHAMNOSUS GG 1 EACH CAP.SPRINK GT SCH ×2 (08:44→16:43)
[2017-08-27] MEDS: LEVOTHYROXINE SODIUM 50 MCG TABLET PO SCH (08:44)
[2017-08-27] MEDS: METOPROLOL TARTRATE 25 MG TABLET GT SCH ×2 (08:44→16:43)
[2017-08-27] MEDS: AMIODARONE HCL 200 MG TABLET GT SCH (08:44)
[2017-08-27] MEDS: PANTOPRAZOLE 40 MG/PACK PACK GT SCH (08:44)
[2017-08-27] MEDS: GENTAMICIN 0.1% CREAM 15 GM TUBE TP SCH ×3 (08:45→16:44)
[2017-08-27] MEDS ORDERED: methylPREDNISolone SOD SUCC 125 MG/2ML VIAL IV SCH (09:00)
[2017-08-27 11:29] VITALS: BP 137/71
[2017-08-27] MEDS: FIBERSOURCE HN 1,000 ML BOTTLE GT PRN (15:13)
[2017-08-27 16:00] VITALS: BP 140/69
--- NOTE | 2017-08-27 17:49 | NUR ---
RECEIVED PT TRACH ON MECHANICAL VENTILATOR ON SETTINGS NOTED. PT AIRWAY PATENT AND SECURE. SUCTIONED COPIOUS AMOUNT OF THICK YELLOW, QUINN SECRETIONS. PT BREATH SOUNDS: COARSE/RHONCHI UPON AUSCULTATION. VENT ALARMS SET AND AUDIBLE. VENT PLUGGED INTO RED OUTLET. WILL CONTINUE TO MONITOR PT. Addendum: 08/27/17 at 1752 by VINCENT ROBERTSON RT Amended: Links added.
--- NOTE | 2017-08-27 18:10 | NUR ---
TELE/RN CLOSING NOTE PATIENT IN BED IN STABLE CONDITION. A/O X 1, NON VERBAL. TRACH AND VENT DEPENDENT. NO SIGNS OF ACUTE DISTRESS. NO COMPLAIN OF PAIN OR DISCOMFORT. ON TELE MONITOR WITH SINUS RHYTHM IN MID 70'S. ON GTUBE FEEDING FIBERSOURCE 70 ML/HR. TOLERATING WELL. HOB ELEVATED FOR ASPIRATION PRECAUTION. ALL NEEDS ATTENDED TO. CALL LIGHT WITHIN REACH. WILL ENDORSE TO NEXT SHIFT FOR CONTINUITY OF CARE.
--- NOTE | 2017-08-27 19:15 | NUR ---
RN OPEN NOTES RECEIVED PATIENT AWAKE IN BED. NON-VERBAL. NO SIGNS OF DISTRESS OR DISCOMFORT. BREATHING EVEN AND UNLABORED. [facility] WITH [facility]TING ORDERED. ON TELE MONITORING WITH SR W/AVB 63. HAS F/C INTACT DRAINING CLEAR YELLOW FLUID. HAS GTUBE INTACT WITH FEEDING RUNNING, PATIENT TOLERATING WELL. BED IN LOW LOCKED POSITION WITH SIDE RAILS X2. CALL LIGHT WITHIN REACH. WILL CONTINUE TO MONITOR.
[2017-08-27 20:00] VITALS: BP 152/81
--- NOTE | 2017-08-27 20:20 | NUR ---
PT RCVD TRACHED ON VENT WITH NOTED SETTINGS. VENT PLUGGED INTO RED OUTLET, VENT ALARMS WORKING AND AUDIBLE. AMBU BAG AT BEDSIDE. BREATHING TX GIVEN PER MD'S ORDERED. NO ADVERSE REACTION NOTED. SUCTIONED LARGE AMOUNT OF YELLOW THICK SECRETIONS. NO RESPIRATORY DISTRESS NOTED AT THIS TIME. WILL CONTINUE TO MONITOR THE PT.
[2017-08-28] VITALS: BP 159/77
[2017-08-28] MEDS: ALBUTEROL HALF STRENGTH 1.25 MG/3 ML VIAL.NEB NEB SCH ×6 (03:16→23:12)
[2017-08-28] MEDS: IPRATROPIUM NEB FS 0.5 MG/2.5 ML AMPUL.NEB NEB SCH ×6 (03:16→23:12)
[2017-08-28 04:00] VITALS: BP 152/82
[2017-08-28] MEDS: MEROPENEM 500 MG in IV NS 0.9% 50 ML IV SCH ×3 (05:23→20:03)
[2017-08-28] MEDS: FIBERSOURCE HN 1,000 ML BOTTLE GT PRN ×2 (05:24→20:04)
--- NOTE | 2017-08-28 06:48 | NUR ---
RN CLOSING NOTES PATIENT RESTING IN BED. NON-VERBAL. NO SIGNS OF DISTRESS OR DISCOMFORT. BREATHING EVEN AND UNLABORED. ON MECH VENT WITH SETTING ORDERED. ON TELE MONITORING WITH SR W/AVB 67. HAS F/C INTACT DRAINING CLEAR YELLOW FLUID. HAS GTUBE INTACT WITH FEEDING RUNNING, PATIENT TOLERATING WELL, NO RESIDUAL NOTED. ALL NEEDS MET. NO SIGNIFICANT CHANGES THROUGH THE NIGHT. PATIENT REPOSITIONED Q2H AND PRN. BED IN LOW LOCKED POSITION WITH SIDE RAILS X2. CALL LIGHT WITHIN REACH. WILL ENDORSE TO AM SHIFT FOR JUNI.
[2017-08-28 08:00] VITALS: BP 167/85
--- NOTE | 2017-08-28 08:00 | NUR ---
tele transit specialist: initial assessment received pt from bed with eyes open, non-verbal. vent dependent with settings: ac 16, tv 550, peep 5, fio2 40%. hob elevated. on g-tube feeding, echo. well. no residual obtained. turned and repositioned. kept comfortable. in no apparent distress noted. 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 will continue to monitor.
--- NOTE | 2017-08-28 08:30 | NUR ---
tele inventory representative: id f/u seen by veda (motion picture narrator) at this time.
--- NOTE | 2017-08-28 09:00 | NUR ---
tele virtualization consultant: waiter/waitress club f/u seen by dr. hopkins at this time.
[2017-08-28] MEDS: LEVETIRACETAM SOL (5 ML) 100 MG/ML UDC GT SCH ×2 (09:12→20:02)
[2017-08-28] MEDS: LACTOBACILLUS RHAMNOSUS GG 1 EACH CAP.SPRINK GT SCH ×2 (09:12→17:29)
[2017-08-28] MEDS: AMIODARONE HCL 200 MG TABLET GT SCH (09:12)
[2017-08-28] MEDS: MEMANTINE HCL 5 MG TABLET GT SCH ×2 (09:12→17:29)
[2017-08-28] MEDS: METOPROLOL TARTRATE 25 MG TABLET GT SCH ×2 (09:12→17:29)
[2017-08-28] MEDS: PANTOPRAZOLE 40 MG/PACK PACK GT SCH (09:12)
[2017-08-28] MEDS: LEVOTHYROXINE SODIUM 50 MCG TABLET PO SCH (09:13)
[2017-08-28] MEDS: PROSOURCE / PROSTAT (PYXIS) 30 ML UDC GT SCH ×3 (09:18→17:29)
[2017-08-28] MEDS: DAKINS QUARTER STRENGTH (0.125%) 480 ML BOTTLE TOP SCH (09:19)
[2017-08-28] MEDS: GENTAMICIN 0.1% CREAM 15 GM TUBE TP SCH ×3 (09:19→17:30)
[2017-08-28] MEDS: LINEZOLID RTU BAG 600 MG in PREMIX 1 EA IV SCH ×2 (09:22→20:04)
[2017-08-28] MEDS: methylPREDNISolone SOD SUCC 125 MG/2ML VIAL IV SCH (09:23)
--- NOTE | 2017-08-28 10:30 | NUR ---
tele furniture finisher apprentice: md visit seen by dr. zavala with orders. orders acknowledged.
[2017-08-28 12:07] LABS: BASOPHILS # (AUTO) 0.1 /CMM (0.0-0.2); BASOPHILS % (AUTO) 0.4 % (0.0-2.0); EOSINOPHILS % (AUTO) 0.1 % (0.0-6.0); HEMATOCRIT 27 % (39-51); HEMOGLOBIN 8.8 g/dL (13.5-17.5); LYMPHOCYTES % (AUTO) 15.6 % (20.0-44.0); MEAN CORPUSCULAR HEMOGLOBIN 31 PG (26.0-33.0); MEAN CORPUSCULAR HGB CONC 33 g/dl (31.0-36.0); MEAN CORPUSCULAR VOLUME 92 fL (80-96); MONOCYTES # (AUTO) 0.7 /CMM (0.1-1.30); MONOCYTES % (AUTO) 5.5 % (2.0-12.0); NEUTROPHILS # (AUTO) 10.2 /CMM (1.8-8.9); NEUTROPHILS % (AUTO) 78.4 % (43.0-81.0); PLATELET COUNT (AUTO) 408 /CMM (150-450); RDW COEFFICIENT OF VARIATION 19.4 (11.5-15.0); RED BLOOD CELL COUNT(AUTO) 2.89 MIL/uL (4.5-6.0)
--- NOTE | 2017-08-28 13:30 | NUR ---
tele business information manager: pulmo f/u seen by dr. adler at this time with no new order.
--- NOTE | 2017-08-28 14:09 | NUR ---
RCVD PT TRACHED ON VENT PER MD SETTINGS. VENT PLUGGED INTO RED OUTLET. VENT ALARM WORKING , ON, AND AUDIBLE. AMBU BAG AT HOB. SUCTIONED PRN MODERATE PALE YELLOW THICK SECRETIONS. BS INCREASED POST SUCTION. PT TRACH PATENT AND SECURE. WILL CONTINUE TO MONITOR PT. Addendum: 08/28/17 at 1412 by CHAPARRO HORAN RT Amended: Links added.
--- NOTE | 2017-08-28 14:30 | NUR ---
tele tire bladder maker: mosaic technician and plastic surgeon f/u seen by dr. holloway and jnaae (banquet waiter/waitress) at this time with no new order. continue wound tx as ordered. turned and repositioned, kept comfortable. will continue to monitor.
[2017-08-28 16:00] VITALS: BP 133/72
--- NOTE | 2017-08-28 18:00 | NUR ---
tele cattle brander: notes in bed with eyes open. pt remains stable. vss. tele remains sr with 1st degree av block=67. hob elevated. remains on g-tube feeding, echo. well. needs attended. will continue to monitor.
--- NOTE | 2017-08-28 19:22 | NUR ---
RT NOTE PATIENT RECEIVED IN STABLE CONDITION ON MECHANICAL VENT. PATIENT IS TOLERATING CURRENT ORDERED VENT SETTINGS WITHOUT RESPIRATORY DISTRESS. TRACH IS PATENT AND SECURE. ALARMS ARE ON AND AUDIBLE. MECHANICAL VENT IS PLUGGED INTO RED OUTLET. AMBU BAG IS AT PATIENT BEDSIDE. WILL CONTINUE TO MONITOR. Addendum: 08/28/17 at 2058 by SHAWN GALDAMEZ RT Amended: Links added.
--- NOTE | 2017-08-28 19:35 | NUR ---
BINDER CASER INITIAL NOTES PT IS IN BED RESTING, EYES OPEN/ NON-VERBAL. PT IS ON VENT AND TOLERATING WELL WITH HOB ELEVATED. NO SIGNS OF SOB OR DISTRESS. PT IS ON G-TUBE FEEDING TOLERATING WELL NO RESIDUAL NOTED. BAXTER CATHETER IS INTACT AND DRAINING. WOUND CARE TO BE RENDERED. BED IS IN LOW AND LOCKED POSITION. WILL CONTINUE TO MONITOR PT.
[2017-08-28 20:00] VITALS: BP 134/56
[2017-08-29] VITALS: BP 125/59
[2017-08-29] MEDS: ALBUTEROL HALF STRENGTH 1.25 MG/3 ML VIAL.NEB NEB SCH ×4 (03:47→15:35)
[2017-08-29] MEDS: IPRATROPIUM NEB FS 0.5 MG/2.5 ML AMPUL.NEB NEB SCH ×4 (03:47→15:35)
[2017-08-29 04:00] VITALS: BP 134/65
[2017-08-29] MEDS: MEROPENEM 500 MG in IV NS 0.9% 50 ML IV SCH ×2 (04:05→12:49)
--- NOTE | 2017-08-29 06:28 | NUR ---
AQUATICS MANAGER CLOSING NOTES PT IS IN BED RESTING, EYES OPEN. ON VENT TOLERATING WELL. G-TUBE FEEDING RUNNING, NO RESIDUAL NOTED. NO ACUTE CHANGES THROUGHOUT THE SHIFT. ALL NEEDS WERE ANTICIPATED AND MET. BED IS IN LOW AND LOCKED POSITION, CALL LIGHT WITHIN REACH. WILL ENDORSE TO DAYSHIFT.
[2017-08-29 06:50] LABS: CALCIUM, SERUM 7.6 mg/dL (8.5-10.1); CARBON DIOXIDE 30 mmol/L (21-32); CHLORIDE 99 mmol/L (98-107); CREATININE 0.7 mg/dL (0.6-1.3); GLUCOSE 92 mg/dL (74-106); MAGNESIUM 1.8 mg/dL (1.8-2.4); PHOSPHORUS 1.6 mg/dL (2.5-4.9); POTASSIUM 4.5 mmol/L (3.5-5.1); SODIUM SERUM 134 mmol/L (136-145); UREA NITROGEN, BLOOD 41 mg/dL (7-18)
--- NOTE | 2017-08-29 07:30 | NUR ---
received pt. eyes open,obtunded,vs stable,on vent,settings unchanged.f/cath to gravity drainage with good output.on isolation for vre.stable.
[2017-08-29 07:40] LABS: EOSINOPHILS # (AUTO) 0.1 /CMM (0.0-0.7); EOSINOPHILS % (AUTO) 0.4 % (0.0-6.0); HEMATOCRIT 27 % (39-51); HEMOGLOBIN 8.8 g/dL (13.5-17.5); LYMPHOCYTES # (AUTO) 3.2 /CMM (0.8-4.8); LYMPHOCYTES % (AUTO) 23.4 % (20.0-44.0); MEAN CORPUSCULAR HEMOGLOBIN 31 PG (26.0-33.0); MEAN CORPUSCULAR HGB CONC 33 g/dl (31.0-36.0); MEAN CORPUSCULAR VOLUME 93 fL (80-96); MONOCYTES # (AUTO) 1.3 /CMM (0.1-1.30); MONOCYTES % (AUTO) 9.2 % (2.0-12.0); NEUTROPHILS # (AUTO) 9.3 /CMM (1.8-8.9); PLATELET COUNT (AUTO) 398 /CMM (150-450); WHITE BLOOD COUNT (AUTO) 13.9 K/uL (4.3-11.0)
[2017-08-29 08:00] VITALS: BP 150/82
[2017-08-29] MEDS: LEVETIRACETAM SOL (5 ML) 100 MG/ML UDC GT SCH (09:42)
[2017-08-29] MEDS: LINEZOLID RTU BAG 600 MG in PREMIX 1 EA IV SCH (09:42)
[2017-08-29] MEDS: AMIODARONE HCL 200 MG TABLET GT SCH (09:43)
[2017-08-29] MEDS: LACTOBACILLUS RHAMNOSUS GG 1 EACH CAP.SPRINK GT SCH ×2 (09:43→17:03)
[2017-08-29] MEDS: PROSOURCE / PROSTAT (PYXIS) 30 ML UDC GT SCH ×3 (09:43→17:02)
[2017-08-29] MEDS: LEVOTHYROXINE SODIUM 50 MCG TABLET PO SCH (09:44)
[2017-08-29] MEDS: methylPREDNISolone SOD SUCC 125 MG/2ML VIAL IV SCH (09:45)
[2017-08-29] MEDS: PANTOPRAZOLE 40 MG/PACK PACK GT SCH (09:45)
[2017-08-29] MEDS: METOPROLOL TARTRATE 25 MG TABLET GT SCH ×2 (09:46→17:04)
[2017-08-29] MEDS: MEMANTINE HCL 5 MG TABLET GT SCH ×2 (09:46→17:03)
[2017-08-29] MEDS: DAKINS QUARTER STRENGTH (0.125%) 480 ML BOTTLE TOP SCH (09:57)
[2017-08-29] MEDS: GENTAMICIN 0.1% CREAM 15 GM TUBE TP SCH ×3 (09:58→17:06)
[2017-08-29 12:00] VITALS: BP 135/69
[2017-08-29] MEDS: FIBERSOURCE HN 1,000 ML BOTTLE GT PRN (12:49)
--- NOTE | 2017-08-29 13:20 | NUR ---
dc photos taken except of groin as pt. fighting nurse a little.
[2017-08-29 16:00] VITALS: BP 147/84
--- NOTE | 2017-08-29 16:26 | NUR ---
PT RCVD ON MECHANICAL VENTILATION WITH CURRENT SETTINGS OF AC 16, 550, 40%, +5. AMBU BAG AT BEDSIDE. SUCTION DONE THROUGHOUT SHIFT. TXS GIVEN AND NO ADVERSE REACTION NOTED. VENTILATOR PLUGGED INTO RED OUTLET. PT TRACH PATENT AND SECURE. ALARMS ON AND AUDIBLE. Addendum: 08/29/17 at 1633 by CHAPARRO HORAN RT Amended: Links added.
[2017-08-29] MEDS ORDERED: NEUTRA PHOS 1 POWD.PACKET GT ONE (16:30)
--- NOTE | 2017-08-29 17:00 | NUR ---
dr. lexie edgar in orders given for discharge.report called to rn at facility.
[2017-08-29 17:04] VITALS: BP 147/84
--- NOTE | 2017-08-29 18:25 | NUR ---
midline iv left in report to drivers,taken to facility via ambulance.
[2017-08-29] MEDS ORDERED: LINEZOLID 600 MG TABLET PO SCH (21:00)
[2017-09-07] MEDS ORDERED: LACT1CAP72 PO (09:01)
[2017-09-07] MEDS ORDERED: FLUC100T8 PO (09:01)
[2017-09-07] MEDS ORDERED: LINE600T PO (09:01)
[2017-09-07] MEDS ORDERED: COLI150V IV (09:01)
== END 2017-08-29 18:15 | DRG 579 ==
LOC: ER 15:39 → TELE 19:40 → MED 08-29 17:26
PROVIDERS: ADMIT Internal Medicine; ATTEND Internal Medicine
PROC: 5A1955Z Respiratory Ventilation, Greater than 96 Consecutive Hours (ICD-10-PCS; principal; 2017-08-22)
PROC: 0QB20ZZ Excision of Right Pelvic Bone, Open Approach (ICD-10-PCS; 2017-08-24)
PROC: 0KBP0ZZ Excision of Left Hip Muscle, Open Approach (ICD-10-PCS; 2017-08-24)
PROC: 30233N1 Transfusion of Nonautologous Red Blood Cells into Peripheral Vein, Percutaneous Approach (ICD-10-PCS; 2017-08-24)
DX: L89.214 Pressure ulcer of right hip, stage 4 (principal); J96.21 Acute and chronic respiratory failure with hypoxia; J90 Pleural effusion, not elsewhere classified; J18.9 Pneumonia, unspecified organism; G93.40 Encephalopathy, unspecified; Z99.11 Dependence on respirator [ventilator] status; J81.1 Chronic pulmonary edema; L89.153 Pressure ulcer of sacral region, stage 3; N17.9 Acute kidney failure, unspecified; L89.613 Pressure ulcer of right heel, stage 3; R53.2 Functional quadriplegia; I13.0 Hypertensive heart and chronic kidney disease with heart failure and stage 1 through stage 4 chronic kidney disease, or unspecified chronic kidney disease; N39.0 Urinary tract infection, site not specified; I42.9 Cardiomyopathy, unspecified; E87.1 Hypo-osmolality and hyponatremia; M86.8X8 Other osteomyelitis, other site; E11.69 Type 2 diabetes mellitus with other specified complication; L89.324 Pressure ulcer of left buttock, stage 4; L89.224 Pressure ulcer of left hip, stage 4; L89.314 Pressure ulcer of right buttock, stage 4; I50.9 Heart failure, unspecified; N18.9 Chronic kidney disease, unspecified; D64.9 Anemia, unspecified; E03.9 Hypothyroidism, unspecified; E11.9 Type 2 diabetes mellitus without complications; E78.5 Hyperlipidemia, unspecified; Z93.1 Gastrostomy status; G40.909 Epilepsy, unspecified, not intractable, without status epilepticus; G30.9 Alzheimer's disease, unspecified; F02.80 Dementia in other diseases classified elsewhere, unspecified severity, without behavioral disturbance, psychotic disturbance, mood disturbance, and anxiety; R13.10 Dysphagia, unspecified; Z93.0 Tracheostomy status; L89.620 Pressure ulcer of left heel, unstageable; F09 Unspecified mental disorder due to known physiological condition; G72.9 Myopathy, unspecified; D72.829 Elevated white blood cell count, unspecified; Z88.0 Allergy status to penicillin; B95.2 Enterococcus as the cause of diseases classified elsewhere; B96.1 Klebsiella pneumoniae [K. pneumoniae] as the cause of diseases classified elsewhere; B96.4 Proteus (mirabilis) (morganii) as the cause of diseases classified elsewhere; B96.89 Other specified bacterial agents as the cause of diseases classified elsewhere; Z16.21 Resistance to vancomycin; Z79.899 Other long term (current) drug therapy
CPT/HCPCS: 31720; 36415; 36600; 71045-TC; 80048-TC; 80053-TC; 80061-TC; 80076-TC; 80202-TC; 81000-TC; 82306; 82728-TC; 82746; 83010; 83540-TC; 83605-TC; 83615-TC; 83735-TC; 84100-TC; 84439-TC; 84443-TC; 84484-TC; 84550-TC; 85025-TC; 85045-TC; 85652-TC; 85730-TC; 86850-TC; 86921-TC; 87040-TC; 87070-TC; 87081-TC; 87086-TC; 87186-TC; 93307-TC; 94002-TC; 94003-TC; 94760-TC; 94762-TC; 99082-TC; A4216; A4606; A6253; A6402; A6403; J1940; J1953; J2020; J2060; J2185; J2543; J2930; J3370; J7050; J7060; P9016-BL; Z7610

== ENCOUNTER 2017-08-30 17:19 | Inpatient (IN) | payer MEDICARE, MEDICAID ==
[~2017-08-30] VITALS: Ht 190.5 cm; Wt 109.3 kg
[~2017-08-30 17:19] MED LIST changes: -ACET-73 GT; -ACET650T10 PO; -AMIN30LI2 GT; -ASCO500T9 GT; -BISA10SU61 RC; -CLON0.1T GT; -CRAN425C6 GT; -FERR220S2 GT; -INSU100V3 SQ; -IPRA3AMP IH; +LACT-209 GT; -MAGN400O6 GT; -MINE3.5O OP; -MULT-213 GT; -NA P133E RC
[2017-08-30 18:01] LABS: BASOPHILS # (AUTO) 0.2 /CMM (0.0-0.2); EOSINOPHILS # (AUTO) 0.4 /CMM (0.0-0.7); EOSINOPHILS % (AUTO) 2.6 % (0.0-6.0); HEMATOCRIT 28 % (39-51); HEMOGLOBIN 9.7 g/dL (13.5-17.5); LYMPHOCYTES # (AUTO) 4.2 /CMM (0.8-4.8); LYMPHOCYTES % (AUTO) 27.3 % (20.0-44.0); MEAN CORPUSCULAR HEMOGLOBIN 31 PG (26.0-33.0); MEAN CORPUSCULAR HGB CONC 34 g/dl (31.0-36.0); MEAN CORPUSCULAR VOLUME 91 fL (80-96); MONOCYTES # (AUTO) 0.7 /CMM (0.1-1.30); MONOCYTES % (AUTO) 4.3 % (2.0-12.0); NEUTROPHILS % (AUTO) 64.8 % (43.0-81.0); PLATELET COUNT (AUTO) 422 /CMM (150-450); RDW COEFFICIENT OF VARIATION 18.5 (11.5-15.0); RED BLOOD CELL COUNT(AUTO) 3.11 MIL/uL (4.5-6.0); WHITE BLOOD COUNT (AUTO) 15.5 K/uL (4.3-11.0)
[2017-08-30 18:25] LABS: CALCIUM, SERUM 7.6 mg/dL (8.5-10.1); CARBON DIOXIDE 35 mmol/L (21-32); CHLORIDE 99 mmol/L (98-107); CREATININE 0.8 mg/dL (0.6-1.3); GLUCOSE 92 mg/dL (74-106); SODIUM SERUM 134 mmol/L (136-145); UREA NITROGEN, BLOOD 43 mg/dL (7-18)
[2017-08-30 18:31] LABS: ALANINE AMINOTRANSFERASE 82 U/L (12-78); ALBUMIN 1.9 g/dL (3.4-5.0); ALKALINE PHOSPHATASE 82 U/L (46-116); ASPARTATE AMINOTRANSFERASE 67 U/L (15-37); BILIRUBIN,DIRECT 0.1 mg/dL (0.0-0.2); BILIRUBIN,TOTAL 0.3 mg/dL (0.2-1.0); INR 1.03 (0.85-1.15); TOTAL PROTEIN, SERUM 6.6 g/dL (6.4-8.2)
[2017-08-30 18:36] LABS: APPEARANCE,URINE Cloudy (CLEAR); BILIRUBIN,URINE Negative (NEGATIVE); BLOOD, URINE Moderate Ery/uL (NEGATIVE); COLOR,URINE Yellow (YELLOW); KETONES,URINE Negative (NEGATIVE); LEUKOCYTE ESTERASE ,URINE Trace (NEGATIVE); NITRITE, URINE Negative (NEGATIVE); PROTEIN,URINE 100 mg/dl (NEGATIVE); UGLUCOSE Negative (NEGATIVE)
[2017-08-30 18:38] LABS: TROPONIN I < 0.017 ng/mL (0.00-0.056)
[2017-08-30 18:53] LABS: BACTERIA,URINE Few /HPF (None Seen)
[2017-08-30 18:54] LABS: SQUAMOUS EPITHELIAL CELL,UR Few /HPF (None Seen); TRIPLE PHOSPHATE CRYSTAL,UR Moderate /HPF (None Seen); URINE AMORPHOUS PHOSPHATES Few /HPF (None Seen); YEAST,URINE Many /HPF (None Seen)
[2017-08-30 19:44] VITALS: BP 171/78
[2017-08-30] MEDS ORDERED: VANCOMYCIN 1 GM in IV D5W 250 ML IV ONE (20:00)
[2017-08-30] MEDS ORDERED: VANCOMYCIN 1 GM VIAL ONE (20:11)
[2017-08-30] MEDS ORDERED: AZTREONAM 1 G in IV NS 0.9% 100 ML IV ONE (20:30)
[2017-08-30] MEDS ORDERED: GENTAMICIN 80 MG in IV D5W 50 ML IV ONE (20:30)
[2017-08-30 21:45] VITALS: BP 165/88
[2017-08-30 22:00] VITALS: BP 165/88
[2017-08-30] MEDS ORDERED: ACETAMINOPHEN LIQUID 160 MG/5 ML BOTTLE GT PRN ×2 (23:00)
[2017-08-31] VITALS (7 sets, daily range): BP systolic 116–145; BP diastolic 58–79
[2017-08-31] MEDS: FIBERSOURCE HN 1,000 ML BOTTLE GT PRN ×2 (02:28→19:54)
[2017-08-31 06:35] LABS: BASOPHILS # (AUTO) 0.1 /CMM (0.0-0.2); BASOPHILS % (AUTO) 0.3 % (0.0-2.0); EOSINOPHILS % (AUTO) 5.1 % (0.0-6.0); HEMATOCRIT 28 % (39-51); HEMOGLOBIN 8.9 g/dL (13.5-17.5); LYMPHOCYTES # (AUTO) 4.3 /CMM (0.8-4.8); LYMPHOCYTES % (AUTO) 21.2 % (20.0-44.0); MEAN CORPUSCULAR HEMOGLOBIN 30 PG (26.0-33.0); MEAN CORPUSCULAR HGB CONC 32 g/dl (31.0-36.0); MEAN CORPUSCULAR VOLUME 94 fL (80-96); MONOCYTES # (AUTO) 1.9 /CMM (0.1-1.30); MONOCYTES % (AUTO) 9.5 % (2.0-12.0); NEUTROPHILS % (AUTO) 63.9 % (43.0-81.0); PLATELET COUNT (AUTO) 260 /CMM (150-450); RED BLOOD CELL COUNT(AUTO) 2.95 MIL/uL (4.5-6.0); WHITE BLOOD COUNT (AUTO) 20.4 K/uL (4.3-11.0)
[2017-08-31 07:05] LABS: ALANINE AMINOTRANSFERASE 69 U/L (12-78); ALBUMIN 1.8 g/dL (3.4-5.0); ALKALINE PHOSPHATASE 72 U/L (46-116); ASPARTATE AMINOTRANSFERASE 60 U/L (15-37); BILIRUBIN,TOTAL 0.4 mg/dL (0.2-1.0); CALCIUM, SERUM 7.5 mg/dL (8.5-10.1); CARBON DIOXIDE 31 mmol/L (21-32); CHLORIDE 100 mmol/L (98-107); CREATININE 0.7 mg/dL (0.6-1.3); GLUCOSE 109 mg/dL (74-106); POTASSIUM 4.4 mmol/L (3.5-5.1); SODIUM SERUM 135 mmol/L (136-145); UREA NITROGEN, BLOOD 40 mg/dL (7-18)
[2017-08-31] MEDS ORDERED: FEE PK DOSING 1 MIN EA MC ONE ×2 (07:32→17:52)
[2017-08-31] MEDS ORDERED: DOCU50LI GT (07:50)
[2017-08-31] MEDS ORDERED: NA P133E RC (07:50)
[2017-08-31] MEDS ORDERED: MAGN400O6 GT (07:50)
[2017-08-31] MEDS ORDERED: MERO500V IV (07:50)
[2017-08-31] MEDS ORDERED: LEVO50TA8 GT (07:50)
[2017-08-31] MEDS ORDERED: BISA10SU8 RC (07:50)
[2017-08-31] MEDS ORDERED: DAPT500V2 IV (07:50)
[2017-08-31] MEDS ORDERED: AMIN30LI4 GT (07:50)
[2017-08-31] MEDS ORDERED: POLY15DR40 EACHEYE (07:50)
[2017-08-31] MEDS ORDERED: HYDR-552 GT ×2 (07:50)
[2017-08-31] MEDS ORDERED: SACC250C GT (07:50)
[2017-08-31] MEDS ORDERED: VANCOMYCIN 1 GM in IV D5W 250 ML IV SCH (08:00)
[2017-08-31] MEDS ORDERED: [UNRECOGNIZED DRUG - REMARK] XX ONE (08:00)
[2017-08-31] MEDS: AZTREONAM 2 G in IV NS 0.9% 100 ML IV SCH ×2 (08:37→13:39)
[2017-08-31] MEDS: PANTOPRAZOLE 40 MG/PACK PACK GT SCH (08:38)
[2017-08-31] MEDS: LEVOTHYROXINE SODIUM 50 MCG TABLET GT SCH (08:38)
[2017-08-31] MEDS: MEMANTINE HCL 5 MG TABLET GT SCH ×2 (08:39→17:32)
[2017-08-31] MEDS: AMIODARONE HCL 200 MG TABLET GT SCH (08:39)
[2017-08-31] MEDS: METOPROLOL TARTRATE 25 MG TABLET GT SCH ×2 (08:39→21:48)
[2017-08-31] MEDS: LEVETIRACETAM SOL (5 ML) 100 MG/ML UDC GT SCH ×2 (08:39→21:48)
[2017-08-31] MEDS: DOCUSATE SODIUM LIQ 100 MG/10 ML UDC GT SCH ×2 (08:39→17:32)
[2017-08-31] MEDS: ENOXAPARIN SODIUM 30 MG/0.3 ML DISP.SYRIN SQ SCH (08:40)
[2017-08-31] MEDS: PROSOURCE / PROSTAT (PYXIS) 30 ML UDC GT SCH ×3 (08:41→17:32)
[2017-08-31] MEDS ORDERED: POLYVINYL ALCOHOL 15 ML BOTTLE EACHEYE PRN (09:00)
[2017-08-31] MEDS ORDERED: INSULIN REGULAR, HUMAN 100 UNIT/ML 3 ML VIAL SQ PRN ×2 (13:00)
[2017-08-31] MEDS ORDERED: DEXTROSE 50%-WATER 50 ML DISP.SYRIN IV PRN (13:00)
[2017-08-31] MEDS: IPRATROPIUM NEB FS 0.5 MG/2.5 ML AMPUL.NEB NEB SCH ×2 (15:30→19:45)
[2017-08-31] MEDS ORDERED: BLOOD SUGAR DIAGNOSTIC 1 EACH STRIP IN SCH (17:30)
[2017-08-31] MEDS: FLUCONAZOLE (100 MG) 100 MG TABLET PO SCH (17:32)
[2017-08-31] MEDS: DAKINS QUARTER STRENGTH (0.125%) 480 ML BOTTLE TOP SCH (17:32)
[2017-08-31] MEDS: BLOOD SUGAR DIAGNOSTIC 1 EACH STRIP IN SCH ×2 (18:24→23:39)
[2017-08-31] MEDS: GENTAMICIN 140 MG in IV D5W 100 ML IV SCH (19:15)
[2017-08-31] MEDS: LINEZOLID 600 MG TABLET PO SCH (21:48)
[2017-09-01] VITALS: BP 138/70
[2017-09-01] MEDS: IPRATROPIUM NEB FS 0.5 MG/2.5 ML AMPUL.NEB NEB SCH ×4 (01:36→19:34)
[2017-09-01 04:00] VITALS: BP 119/67
[2017-09-01] MEDS: DAKINS QUARTER STRENGTH (0.125%) 480 ML BOTTLE TOP SCH ×2 (04:29→15:55)
[2017-09-01] MEDS: GENTAMICIN 140 MG in IV D5W 100 ML IV SCH ×2 (05:30→17:38)
[2017-09-01] MEDS: BLOOD SUGAR DIAGNOSTIC 1 EACH STRIP IN SCH ×3 (05:37→17:41)
[2017-09-01 07:36] LABS: BASOPHILS % (AUTO) 0.3 % (0.0-2.0); EOSINOPHILS # (AUTO) 1.3 /CMM (0.0-0.7); EOSINOPHILS % (AUTO) 9.1 % (0.0-6.0); HEMATOCRIT 25 % (39-51); HEMOGLOBIN 8.3 g/dL (13.5-17.5); LYMPHOCYTES # (AUTO) 2.6 /CMM (0.8-4.8); LYMPHOCYTES % (AUTO) 18.3 % (20.0-44.0); MEAN CORPUSCULAR HEMOGLOBIN 31 PG (26.0-33.0); MEAN CORPUSCULAR HGB CONC 33 g/dl (31.0-36.0); MEAN CORPUSCULAR VOLUME 94 fL (80-96); MONOCYTES % (AUTO) 7.4 % (2.0-12.0); NEUTROPHILS # (AUTO) 9.1 /CMM (1.8-8.9); NEUTROPHILS % (AUTO) 64.9 % (43.0-81.0); PLATELET COUNT (AUTO) 265 /CMM (150-450); RDW COEFFICIENT OF VARIATION 20.2 (11.5-15.0); RED BLOOD CELL COUNT(AUTO) 2.66 MIL/uL (4.5-6.0); WHITE BLOOD COUNT (AUTO) 14.1 K/uL (4.3-11.0)
[2017-09-01 07:51] LABS: CALCIUM, SERUM 7.3 mg/dL (8.5-10.1); CARBON DIOXIDE 32 mmol/L (21-32); CHLORIDE 102 mmol/L (98-107); CREATININE 0.7 mg/dL (0.6-1.3); GLUCOSE 108 mg/dL (74-106); MAGNESIUM 1.8 mg/dL (1.8-2.4); PHOSPHORUS 2.4 mg/dL (2.5-4.9); POTASSIUM 4.1 mmol/L (3.5-5.1); SODIUM SERUM 136 mmol/L (136-145); UREA NITROGEN, BLOOD 37 mg/dL (7-18)
[2017-09-01 08:32] VITALS: BP 129/64
[2017-09-01] MEDS: LEVOTHYROXINE SODIUM 50 MCG TABLET GT SCH (08:35)
[2017-09-01] MEDS: LEVETIRACETAM SOL (5 ML) 100 MG/ML UDC GT SCH ×2 (08:35→20:58)
[2017-09-01] MEDS: DOCUSATE SODIUM LIQ 100 MG/10 ML UDC GT SCH ×2 (08:35→16:58)
[2017-09-01] MEDS: FLUCONAZOLE (100 MG) 100 MG TABLET PO SCH (08:35)
[2017-09-01] MEDS: MEMANTINE HCL 5 MG TABLET GT SCH ×2 (08:35→16:58)
[2017-09-01] MEDS: PANTOPRAZOLE 40 MG/PACK PACK GT SCH (08:35)
[2017-09-01] MEDS: AMIODARONE HCL 200 MG TABLET GT SCH (08:36)
[2017-09-01] MEDS: METOPROLOL TARTRATE 25 MG TABLET GT SCH ×2 (08:36→20:59)
[2017-09-01] MEDS: PROSOURCE / PROSTAT (PYXIS) 30 ML UDC GT SCH ×3 (08:36→16:58)
[2017-09-01] MEDS: LINEZOLID 600 MG TABLET PO SCH ×2 (08:36→20:58)
[2017-09-01] MEDS: HYDROGEL DRESSING 90 GM TUBE TP SCH (08:37)
[2017-09-01] MEDS: ENOXAPARIN SODIUM 30 MG/0.3 ML DISP.SYRIN SQ SCH (08:38)
[2017-09-01] MEDS: FIBERSOURCE HN 1,000 ML BOTTLE GT PRN (11:34)
[2017-09-01 12:00] VITALS: BP 134/68
[2017-09-01] MEDS ORDERED: NEUTRA PHOS 1 POWD.PACKET GT ONE (15:00)
[2017-09-01 16:00] VITALS: BP_SYST 138; BP_DIAS 65; BP_DIAS 68
[2017-09-01 20:00] VITALS: BP 145/78
[2017-09-02] VITALS: BP 119/75
[2017-09-02] MEDS: BLOOD SUGAR DIAGNOSTIC 1 EACH STRIP IN SCH ×5 (00:35→23:40)
[2017-09-02] MEDS: IPRATROPIUM NEB FS 0.5 MG/2.5 ML AMPUL.NEB NEB SCH ×4 (01:38→19:42)
[2017-09-02] MEDS: DAKINS QUARTER STRENGTH (0.125%) 480 ML BOTTLE TOP SCH ×2 (03:37→15:33)
[2017-09-02] MEDS: FIBERSOURCE HN 1,000 ML BOTTLE GT PRN ×2 (05:56→21:43)
[2017-09-02] MEDS: GENTAMICIN 140 MG in IV D5W 100 ML IV SCH ×2 (05:56→17:37)
[2017-09-02 08:00] VITALS: BP 137/83
[2017-09-02 08:12] LABS: CALCIUM, SERUM 7.5 mg/dL (8.5-10.1); CARBON DIOXIDE 30 mmol/L (21-32); CHLORIDE 102 mmol/L (98-107); CREATININE 0.7 mg/dL (0.6-1.3); GLUCOSE 110 mg/dL (74-106); POTASSIUM 4.8 mmol/L (3.5-5.1); SODIUM SERUM 137 mmol/L (136-145); UREA NITROGEN, BLOOD 35 mg/dL (7-18)
[2017-09-02] MEDS: PANTOPRAZOLE 40 MG/PACK PACK GT SCH (09:41)
[2017-09-02] MEDS: MEMANTINE HCL 5 MG TABLET GT SCH ×2 (09:41→16:29)
[2017-09-02] MEDS: FLUCONAZOLE (100 MG) 100 MG TABLET PO SCH (09:41)
[2017-09-02] MEDS: LEVETIRACETAM SOL (5 ML) 100 MG/ML UDC GT SCH ×2 (09:41→21:37)
[2017-09-02] MEDS: DOCUSATE SODIUM LIQ 100 MG/10 ML UDC GT SCH ×2 (09:41→16:29)
[2017-09-02] MEDS: METOPROLOL TARTRATE 25 MG TABLET GT SCH ×2 (09:42→21:38)
[2017-09-02] MEDS: LINEZOLID 600 MG TABLET PO SCH ×2 (09:42→21:37)
[2017-09-02] MEDS: AMIODARONE HCL 200 MG TABLET GT SCH (09:42)
[2017-09-02] MEDS: ENOXAPARIN SODIUM 30 MG/0.3 ML DISP.SYRIN SQ SCH (09:43)
[2017-09-02] MEDS: PROSOURCE / PROSTAT (PYXIS) 30 ML UDC GT SCH ×3 (09:43→16:29)
[2017-09-02] MEDS: HYDROGEL DRESSING 90 GM TUBE TP SCH (09:44)
[2017-09-02] MEDS: LEVOTHYROXINE SODIUM 50 MCG TABLET GT SCH (09:45)
[2017-09-02 12:00] VITALS: BP_SYST 120; BP_SYST 129; BP_DIAS 78; BP_DIAS 86
[2017-09-02 16:00] VITALS: BP 124/72
[2017-09-02 20:00] VITALS: BP 155/67
[2017-09-02 22:25] VITALS: BP 155/67
[2017-09-03] VITALS: BP 115/62
[2017-09-03] MEDS: IPRATROPIUM NEB FS 0.5 MG/2.5 ML AMPUL.NEB NEB SCH ×4 (00:45→19:27)
[2017-09-03 04:00] VITALS: BP 145/72
[2017-09-03] MEDS: DAKINS QUARTER STRENGTH (0.125%) 480 ML BOTTLE TOP SCH ×2 (04:12→15:05)
[2017-09-03] MEDS: GENTAMICIN 140 MG in IV D5W 100 ML IV SCH ×2 (06:00→17:37)
[2017-09-03] MEDS: BLOOD SUGAR DIAGNOSTIC 1 EACH STRIP IN SCH ×3 (06:14→17:01)
[2017-09-03 06:56] LABS: BASOPHILS # (AUTO) 0.1 /CMM (0.0-0.2); BASOPHILS % (AUTO) 0.5 % (0.0-2.0); EOSINOPHILS % (AUTO) 8.6 % (0.0-6.0); HEMATOCRIT 24 % (39-51); LYMPHOCYTES # (AUTO) 2.3 /CMM (0.8-4.8); LYMPHOCYTES % (AUTO) 19.3 % (20.0-44.0); MEAN CORPUSCULAR HEMOGLOBIN 32 PG (26.0-33.0); MEAN CORPUSCULAR HGB CONC 34 g/dl (31.0-36.0); MEAN CORPUSCULAR VOLUME 94 fL (80-96); MONOCYTES # (AUTO) 0.9 /CMM (0.1-1.30); MONOCYTES % (AUTO) 7.4 % (2.0-12.0); NEUTROPHILS # (AUTO) 7.8 /CMM (1.8-8.9); NEUTROPHILS % (AUTO) 64.2 % (43.0-81.0); PLATELET COUNT (AUTO) 270 /CMM (150-450); RDW COEFFICIENT OF VARIATION 20.3 (11.5-15.0); RED BLOOD CELL COUNT(AUTO) 2.53 MIL/uL (4.5-6.0); WHITE BLOOD COUNT (AUTO) 12.2 K/uL (4.3-11.0)
[2017-09-03 07:29] LABS: CALCIUM, SERUM 7.4 mg/dL (8.5-10.1); CARBON DIOXIDE 29 mmol/L (21-32); CHLORIDE 101 mmol/L (98-107); CREATININE 0.7 mg/dL (0.6-1.3); GLUCOSE 102 mg/dL (74-106); MAGNESIUM 1.8 mg/dL (1.8-2.4); PHOSPHORUS 2.7 mg/dL (2.5-4.9); POTASSIUM 4.5 mmol/L (3.5-5.1); SODIUM SERUM 136 mmol/L (136-145); UREA NITROGEN, BLOOD 36 mg/dL (7-18)
[2017-09-03 08:00] VITALS: BP 144/82
[2017-09-03] MEDS: PROSOURCE / PROSTAT (PYXIS) 30 ML UDC GT SCH ×3 (08:59→16:57)
[2017-09-03] MEDS: DOCUSATE SODIUM LIQ 100 MG/10 ML UDC GT SCH ×2 (09:00→16:58)
[2017-09-03] MEDS: ENOXAPARIN SODIUM 30 MG/0.3 ML DISP.SYRIN SQ SCH (09:00)
[2017-09-03] MEDS: MEMANTINE HCL 5 MG TABLET GT SCH ×2 (09:01→16:58)
[2017-09-03] MEDS: LINEZOLID 600 MG TABLET PO SCH ×2 (09:01→20:50)
[2017-09-03] MEDS: LEVETIRACETAM SOL (5 ML) 100 MG/ML UDC GT SCH ×2 (09:01→20:50)
[2017-09-03] MEDS: AMIODARONE HCL 200 MG TABLET GT SCH (09:01)
[2017-09-03] MEDS: METOPROLOL TARTRATE 25 MG TABLET GT SCH ×2 (09:02→20:51)
[2017-09-03] MEDS: FLUCONAZOLE (100 MG) 100 MG TABLET PO SCH (09:02)
[2017-09-03] MEDS: PANTOPRAZOLE 40 MG/PACK PACK GT SCH (09:02)
[2017-09-03] MEDS: LEVOTHYROXINE SODIUM 50 MCG TABLET GT SCH (09:02)
[2017-09-03] MEDS: HYDROGEL DRESSING 90 GM TUBE TP SCH (09:12)
[2017-09-03 12:00] VITALS: BP 125/61
[2017-09-03] MEDS: FIBERSOURCE HN 1,000 ML BOTTLE GT PRN (15:05)
[2017-09-03 16:00] VITALS: BP 133/67
[2017-09-03] MEDS: LACTOBACILLUS RHAMNOSUS GG 1 EACH CAP.SPRINK PO SCH (16:58)
[2017-09-03 20:00] VITALS: BP 135/75
[2017-09-04] VITALS (13 sets, daily range): BP systolic 108–155; BP diastolic 59–85
[2017-09-04] MEDS: BLOOD SUGAR DIAGNOSTIC 1 EACH STRIP IN SCH ×5 (00:22→23:07)
[2017-09-04] MEDS: IPRATROPIUM NEB FS 0.5 MG/2.5 ML AMPUL.NEB NEB SCH ×4 (00:45→19:39)
[2017-09-04] MEDS: DAKINS QUARTER STRENGTH (0.125%) 480 ML BOTTLE TOP SCH ×2 (03:09→16:09)
[2017-09-04] MEDS: GENTAMICIN 140 MG in IV D5W 100 ML IV SCH ×2 (05:30→18:00)
[2017-09-04 06:33] LABS: BASOPHILS % (AUTO) 0.3 % (0.0-2.0); EOSINOPHILS % (AUTO) 9.1 % (0.0-6.0); HEMATOCRIT 21 % (39-51); LYMPHOCYTES % (AUTO) 18.7 % (20.0-44.0); MEAN CORPUSCULAR HEMOGLOBIN 31 PG (26.0-33.0); MEAN CORPUSCULAR HGB CONC 33 g/dl (31.0-36.0); MEAN CORPUSCULAR VOLUME 93 fL (80-96); MONOCYTES # (AUTO) 0.7 /CMM (0.1-1.30); MONOCYTES % (AUTO) 6.7 % (2.0-12.0); NEUTROPHILS # (AUTO) 7.1 /CMM (1.8-8.9); NEUTROPHILS % (AUTO) 65.2 % (43.0-81.0); PLATELET COUNT (AUTO) 242 /CMM (150-450); RDW COEFFICIENT OF VARIATION 20.1 (11.5-15.0); RED BLOOD CELL COUNT(AUTO) 2.22 MIL/uL (4.5-6.0); WHITE BLOOD COUNT (AUTO) 10.9 K/uL (4.3-11.0)
[2017-09-04 06:46] LABS: CARBON DIOXIDE 32 mmol/L (21-32); CHLORIDE 102 mmol/L (98-107); CREATININE 0.8 mg/dL (0.6-1.3); GLUCOSE 107 mg/dL (74-106); MAGNESIUM 1.8 mg/dL (1.8-2.4); PHOSPHORUS 2.9 mg/dL (2.5-4.9); POTASSIUM 4.3 mmol/L (3.5-5.1); SODIUM SERUM 136 mmol/L (136-145); UREA NITROGEN, BLOOD 35 mg/dL (7-18)
[2017-09-04 06:50] LABS: CALCIUM, SERUM 7.4 mg/dL (8.5-10.1)
[2017-09-04 07:53] LABS: HEMOGLOBIN 6.8 g/dL (13.5-17.5)
[2017-09-04] MEDS: ENOXAPARIN SODIUM 30 MG/0.3 ML DISP.SYRIN SQ SCH (09:00)
[2017-09-04 09:12] LABS: EOSINOPHILS % (MANUAL) 5 % (0-4); LYMPHOCYTES % (MANUAL) 21 % (16-48); MONOCYTES % (MANUAL) 8 % (0-11.0); NEUTROPHILS % (MANUAL) 66 (42-76)
[2017-09-04] MEDS: PANTOPRAZOLE 40 MG/PACK PACK GT SCH (09:21)
[2017-09-04] MEDS: LINEZOLID 600 MG TABLET PO SCH ×2 (09:21→20:56)
[2017-09-04] MEDS: LACTOBACILLUS RHAMNOSUS GG 1 EACH CAP.SPRINK PO SCH ×2 (09:21→16:54)
[2017-09-04] MEDS: DOCUSATE SODIUM LIQ 100 MG/10 ML UDC GT SCH ×2 (09:21→16:54)
[2017-09-04] MEDS: FLUCONAZOLE (100 MG) 100 MG TABLET PO SCH (09:21)
[2017-09-04] MEDS: LEVETIRACETAM SOL (5 ML) 100 MG/ML UDC GT SCH ×2 (09:21→20:56)
[2017-09-04] MEDS: MEMANTINE HCL 5 MG TABLET GT SCH ×2 (09:21→16:54)
[2017-09-04] MEDS: LEVOTHYROXINE SODIUM 50 MCG TABLET GT SCH (09:21)
[2017-09-04] MEDS: METOPROLOL TARTRATE 25 MG TABLET GT SCH ×2 (09:22→20:56)
[2017-09-04] MEDS: AMIODARONE HCL 200 MG TABLET GT SCH (09:22)
[2017-09-04] MEDS: PROSOURCE / PROSTAT (PYXIS) 30 ML UDC GT SCH ×3 (09:23→16:54)
[2017-09-04] MEDS: HYDROGEL DRESSING 90 GM TUBE TP SCH (09:23)
[2017-09-04] MEDS: FIBERSOURCE HN 1,000 ML BOTTLE GT PRN ×2 (10:10→23:07)
[2017-09-05] VITALS (7 sets, daily range): BP systolic 108–159; BP diastolic 66–87
[2017-09-05] MEDS: IPRATROPIUM NEB FS 0.5 MG/2.5 ML AMPUL.NEB NEB SCH ×4 (01:34→19:11)
[2017-09-05] MEDS: DAKINS QUARTER STRENGTH (0.125%) 480 ML BOTTLE TOP SCH ×2 (03:48→15:52)
[2017-09-05] MEDS: BLOOD SUGAR DIAGNOSTIC 1 EACH STRIP IN SCH ×3 (05:47→17:58)
[2017-09-05 06:27] LABS: BASOPHILS # (AUTO) 0.1 /CMM (0.0-0.2); BASOPHILS % (AUTO) 0.6 % (0.0-2.0); EOSINOPHILS # (AUTO) 1.2 /CMM (0.0-0.7); EOSINOPHILS % (AUTO) 10.9 % (0.0-6.0); HEMATOCRIT 24 % (39-51); HEMOGLOBIN 8.1 g/dL (13.5-17.5); LYMPHOCYTES % (AUTO) 18.7 % (20.0-44.0); MEAN CORPUSCULAR HEMOGLOBIN 32 PG (26.0-33.0); MEAN CORPUSCULAR HGB CONC 34 g/dl (31.0-36.0); MEAN CORPUSCULAR VOLUME 93 fL (80-96); MONOCYTES # (AUTO) 0.7 /CMM (0.1-1.30); MONOCYTES % (AUTO) 6.3 % (2.0-12.0); NEUTROPHILS # (AUTO) 6.8 /CMM (1.8-8.9); NEUTROPHILS % (AUTO) 63.5 % (43.0-81.0); PLATELET COUNT (AUTO) 251 /CMM (150-450); RDW COEFFICIENT OF VARIATION 19.1 (11.5-15.0); RED BLOOD CELL COUNT(AUTO) 2.58 MIL/uL (4.5-6.0); WHITE BLOOD COUNT (AUTO) 10.7 K/uL (4.3-11.0)
[2017-09-05 06:47] LABS: CALCIUM, SERUM 7.4 mg/dL (8.5-10.1); CARBON DIOXIDE 30 mmol/L (21-32); CHLORIDE 102 mmol/L (98-107); CREATININE 0.8 mg/dL (0.6-1.3); GLUCOSE 119 mg/dL (74-106); MAGNESIUM 1.8 mg/dL (1.8-2.4); POTASSIUM 4.3 mmol/L (3.5-5.1); SODIUM SERUM 136 mmol/L (136-145); UREA NITROGEN, BLOOD 32 mg/dL (7-18)
[2017-09-05] MEDS ORDERED: GENTAMICIN 120 MG in IV D5W 100 ML IV SCH (09:00)
[2017-09-05] MEDS: ENOXAPARIN SODIUM 30 MG/0.3 ML DISP.SYRIN SQ SCH (09:00)
[2017-09-05] MEDS: LACTOBACILLUS RHAMNOSUS GG 1 EACH CAP.SPRINK PO SCH ×2 (09:42→16:26)
[2017-09-05] MEDS: PROSOURCE / PROSTAT (PYXIS) 30 ML UDC GT SCH ×3 (09:42→16:27)
[2017-09-05] MEDS: MEMANTINE HCL 5 MG TABLET GT SCH ×2 (09:42→16:26)
[2017-09-05] MEDS: PANTOPRAZOLE 40 MG/PACK PACK GT SCH (09:42)
[2017-09-05] MEDS: DOCUSATE SODIUM LIQ 100 MG/10 ML UDC GT SCH ×2 (09:42→16:27)
[2017-09-05] MEDS: LEVOTHYROXINE SODIUM 50 MCG TABLET GT SCH (09:42)
[2017-09-05] MEDS: LEVETIRACETAM SOL (5 ML) 100 MG/ML UDC GT SCH ×2 (09:42→20:27)
[2017-09-05] MEDS: FLUCONAZOLE (100 MG) 100 MG TABLET PO SCH (09:42)
[2017-09-05] MEDS: LINEZOLID 600 MG TABLET PO SCH ×2 (09:44→20:27)
[2017-09-05] MEDS: METOPROLOL TARTRATE 25 MG TABLET GT SCH ×2 (09:44→22:18)
[2017-09-05] MEDS: AMIODARONE HCL 200 MG TABLET GT SCH (09:45)
[2017-09-05] MEDS: HYDROGEL DRESSING 90 GM TUBE TP SCH (09:45)
[2017-09-05] MEDS: FIBERSOURCE HN 1,000 ML BOTTLE GT PRN (14:10)
[2017-09-05] MEDS: COLISTIMETHATE SODIUM 100 MG in IV NS 0.9% 50 ML IV SCH (20:26)
[2017-09-06] VITALS (9 sets, daily range): BP systolic 89–149; BP diastolic 47–77
[2017-09-06] MEDS: IPRATROPIUM NEB FS 0.5 MG/2.5 ML AMPUL.NEB NEB SCH ×4 (00:49→19:54)
[2017-09-06] MEDS ORDERED: ACETAMINOPHEN 650 MG/20.3 ML UDC GT PRN (03:00)
[2017-09-06] MEDS: DAKINS QUARTER STRENGTH (0.125%) 480 ML BOTTLE TOP SCH ×2 (03:55→15:22)
[2017-09-06] MEDS: FIBERSOURCE HN 1,000 ML BOTTLE GT PRN ×2 (04:25→20:22)
[2017-09-06] MEDS: BLOOD SUGAR DIAGNOSTIC 1 EACH STRIP IN SCH ×5 (05:31→23:32)
[2017-09-06 07:18] LABS: BASOPHILS % (AUTO) 0.2 % (0.0-2.0); EOSINOPHILS % (AUTO) 7.8 % (0.0-6.0); HEMATOCRIT 26 % (39-51); HEMOGLOBIN 8.7 g/dL (13.5-17.5); LYMPHOCYTES # (AUTO) 3.2 /CMM (0.8-4.8); LYMPHOCYTES % (AUTO) 24.6 % (20.0-44.0); MEAN CORPUSCULAR HEMOGLOBIN 31 PG (26.0-33.0); MEAN CORPUSCULAR HGB CONC 33 g/dl (31.0-36.0); MEAN CORPUSCULAR VOLUME 94 fL (80-96); MONOCYTES # (AUTO) 0.9 /CMM (0.1-1.30); MONOCYTES % (AUTO) 6.9 % (2.0-12.0); NEUTROPHILS # (AUTO) 7.9 /CMM (1.8-8.9); NEUTROPHILS % (AUTO) 60.5 % (43.0-81.0); PLATELET COUNT (AUTO) 254 /CMM (150-450); RDW COEFFICIENT OF VARIATION 18.7 (11.5-15.0); RED BLOOD CELL COUNT(AUTO) 2.78 MIL/uL (4.5-6.0); WHITE BLOOD COUNT (AUTO) 13.1 K/uL (4.3-11.0)
[2017-09-06 07:22] LABS: CALCIUM, SERUM 7.5 mg/dL (8.5-10.1); CARBON DIOXIDE 32 mmol/L (21-32); CHLORIDE 102 mmol/L (98-107); CREATININE 0.9 mg/dL (0.6-1.3); GLUCOSE 98 mg/dL (74-106); MAGNESIUM 1.9 mg/dL (1.8-2.4); POTASSIUM 4.9 mmol/L (3.5-5.1); SODIUM SERUM 137 mmol/L (136-145); UREA NITROGEN, BLOOD 37 mg/dL (7-18)
[2017-09-06] MEDS: DOCUSATE SODIUM LIQ 100 MG/10 ML UDC GT SCH ×2 (08:49→16:39)
[2017-09-06] MEDS: LEVOTHYROXINE SODIUM 50 MCG TABLET GT SCH (08:49)
[2017-09-06] MEDS: MEMANTINE HCL 5 MG TABLET GT SCH ×2 (08:49→16:39)
[2017-09-06] MEDS: LEVETIRACETAM SOL (5 ML) 100 MG/ML UDC GT SCH ×2 (08:49→21:28)
[2017-09-06] MEDS: FLUCONAZOLE (100 MG) 100 MG TABLET PO SCH (08:49)
[2017-09-06] MEDS: PANTOPRAZOLE 40 MG/PACK PACK GT SCH (08:49)
[2017-09-06] MEDS: LACTOBACILLUS RHAMNOSUS GG 1 EACH CAP.SPRINK PO SCH ×2 (08:49→16:39)
[2017-09-06] MEDS: LINEZOLID 600 MG TABLET PO SCH ×2 (08:49→21:28)
[2017-09-06] MEDS: AMIODARONE HCL 200 MG TABLET GT SCH (08:52)
[2017-09-06] MEDS: PROSOURCE / PROSTAT (PYXIS) 30 ML UDC GT SCH ×3 (08:55→16:40)
[2017-09-06] MEDS: ENOXAPARIN SODIUM 30 MG/0.3 ML DISP.SYRIN SQ SCH (08:55)
[2017-09-06] MEDS: HYDROGEL DRESSING 90 GM TUBE TP SCH (08:56)
[2017-09-06] MEDS: METOPROLOL TARTRATE 25 MG TABLET GT SCH ×2 (09:00→21:28)
[2017-09-06] MEDS: COLISTIMETHATE SODIUM 100 MG in IV NS 0.9% 50 ML IV SCH (20:23)
[2017-09-07] VITALS: BP 145/71
[2017-09-07] MEDS: IPRATROPIUM NEB FS 0.5 MG/2.5 ML AMPUL.NEB NEB SCH ×3 (00:36→14:10)
[2017-09-07] MEDS: DAKINS QUARTER STRENGTH (0.125%) 480 ML BOTTLE TOP SCH ×2 (03:33→16:53)
[2017-09-07 04:00] VITALS: BP 142/80
[2017-09-07] MEDS: BLOOD SUGAR DIAGNOSTIC 1 EACH STRIP IN SCH ×3 (05:14→18:28)
[2017-09-07] MEDS ORDERED: ASCORBIC ACID 500 MG TABLET GT SCH (09:00)
[2017-09-07] MEDS ORDERED: MULTIVITAMINS,THERAGRAN 1 UDTAB TABLET GT SCH (09:00)
[2017-09-07] MEDS ORDERED: COLI150V IV (09:01)
[2017-09-07] MEDS ORDERED: LACT1CAP72 PO (09:01)
[2017-09-07] MEDS ORDERED: LINE600T PO (09:01)
[2017-09-07] MEDS ORDERED: FLUC100T8 PO (09:01)
[2017-09-07] MEDS: LACTOBACILLUS RHAMNOSUS GG 1 EACH CAP.SPRINK PO SCH ×2 (09:44→17:57)
[2017-09-07] MEDS: FLUCONAZOLE (100 MG) 100 MG TABLET PO SCH (09:44)
[2017-09-07] MEDS: MEMANTINE HCL 5 MG TABLET GT SCH ×2 (09:45→17:56)
[2017-09-07] MEDS: AMIODARONE HCL 200 MG TABLET GT SCH (09:46)
[2017-09-07] MEDS: LEVOTHYROXINE SODIUM 50 MCG TABLET GT SCH (09:47)
[2017-09-07] MEDS: PANTOPRAZOLE 40 MG/PACK PACK GT SCH (09:47)
[2017-09-07] MEDS: DOCUSATE SODIUM LIQ 100 MG/10 ML UDC GT SCH ×2 (09:48→17:56)
[2017-09-07] MEDS: PROSOURCE / PROSTAT (PYXIS) 30 ML UDC GT SCH ×3 (09:49→17:57)
[2017-09-07] MEDS: LEVETIRACETAM SOL (5 ML) 100 MG/ML UDC GT SCH (09:50)
[2017-09-07] MEDS: HYDROGEL DRESSING 90 GM TUBE TP SCH (09:52)
[2017-09-07] MEDS: LINEZOLID 600 MG TABLET PO SCH (10:07)
[2017-09-07] MEDS: METOPROLOL TARTRATE 25 MG TABLET GT SCH (11:15)
[2017-09-07] MEDS: ENOXAPARIN SODIUM 30 MG/0.3 ML DISP.SYRIN SQ SCH (11:16)
[2017-09-07 12:46] VITALS: BP 146/67
[2017-09-07 16:14] VITALS: BP 108/52
== END 2017-09-07 19:25 | DRG 166 ==
LOC: ER 17:21 → TELE 21:24
PROVIDERS: ADMIT Internal Medicine; ATTEND Internal Medicine
PROC: 5A1955Z Respiratory Ventilation, Greater than 96 Consecutive Hours (ICD-10-PCS; principal; 2017-08-30)
PROC: 0JBQ0ZZ Excision of Right Foot Subcutaneous Tissue and Fascia, Open Approach (ICD-10-PCS; 2017-08-31)
PROC: 0KBN0ZZ Excision of Right Hip Muscle, Open Approach (ICD-10-PCS; 2017-08-31)
PROC: 0KBP0ZZ Excision of Left Hip Muscle, Open Approach (ICD-10-PCS; 2017-08-31)
PROC: 30233N1 Transfusion of Nonautologous Red Blood Cells into Peripheral Vein, Percutaneous Approach (ICD-10-PCS; 2017-09-04)
DX: J18.9 Pneumonia, unspecified organism (principal); J96.21 Acute and chronic respiratory failure with hypoxia; J90 Pleural effusion, not elsewhere classified; L89.314 Pressure ulcer of right buttock, stage 4; L89.324 Pressure ulcer of left buttock, stage 4; Z99.11 Dependence on respirator [ventilator] status; L89.153 Pressure ulcer of sacral region, stage 3; R53.2 Functional quadriplegia; E11.69 Type 2 diabetes mellitus with other specified complication; L89.613 Pressure ulcer of right heel, stage 3; I42.9 Cardiomyopathy, unspecified; B37.49 Other urogenital candidiasis; M86.8X8 Other osteomyelitis, other site; J44.0 Chronic obstructive pulmonary disease with (acute) lower respiratory infection; J98.11 Atelectasis; D69.2 Other nonthrombocytopenic purpura; I11.0 Hypertensive heart disease with heart failure; D64.9 Anemia, unspecified; F02.80 Dementia in other diseases classified elsewhere, unspecified severity, without behavioral disturbance, psychotic disturbance, mood disturbance, and anxiety; E78.5 Hyperlipidemia, unspecified; Z93.1 Gastrostomy status; F09 Unspecified mental disorder due to known physiological condition; R13.10 Dysphagia, unspecified; G40.909 Epilepsy, unspecified, not intractable, without status epilepticus; Z88.0 Allergy status to penicillin; I50.9 Heart failure, unspecified; G30.9 Alzheimer's disease, unspecified; Z79.4 Long term (current) use of insulin
CPT/HCPCS: 31720; 36415; 71045-TC; 80048-TC; 80053-TC; 80076-TC; 80170-TC; 81000-TC; 82962-TC; 83605-TC; 83735-TC; 84100-TC; 84484-TC; 85025-TC; 85730-TC; 86850-TC; 86921-TC; 87040-TC; 87070-TC; 87081-TC; 87086-TC; 87186-TC; 94002-TC; 94003-TC; 94760-TC; 94762-TC; A4216; A4606; A4623; A6248; A6253; A6402; A6403; J0770; J1580; J1650; J1815; J1953; J3370; J3490; J7030; J7050; J7060; P9016-BL; Z7610